=== PATIENT | male | born 1950 | race Caucasian/White ===

== ENCOUNTER 2016-05-07 00:56 | Emergency (ER) | payer MEDICARE, OTHER ==
[~2016-05-07] VITALS: Ht 180.3 cm; Wt 111.0 kg
[~2016-05-07 00:56] MED LIST: CLONIDINE0.1 MG PO; DOXAZOSIN4 MG PO; FINASTERIDE5 MG PO; LISINOPRIL20 MG PO; MAXZIDE-2537.5 MG/TA PO; METFORMIN500 MG PO; PRAVASTATIN20 MG PO; VERAPAMIL180 M2 PO; XARELTO10 MG PO
[2016-05-07] MEDS ORDERED: CLONIDINE0.3 MG PO (01:15)
[2016-05-07] MEDS ORDERED: MAXZIDE-2537.5 MG/TA PO (01:15)
[2016-05-07 01:35] LABS: HEMATOCRIT 42.1 % (39.0-50.0); HEMOGLOBIN 14.4 g/dl (14.0-18.0); IMMATURE GRANULOCYTES 0.3 % (0.0-1.0); MEAN CELL VOLUME 90.9 fL CALC (80.0-100.0); MEAN CORPUSCULAR HGB 31.1 pG CALC (26.0-32.0); MEAN CORPUSCULAR HGB CONC 34.2 g/L CALC (32.0-36.0); NEUT# 8.33 thou/uL (1.82-7.42); RED BLOOD COUNT 4.63 mill/uL (4.70-6.10); RED CELL DISTRI WIDTH 12.7 % (11.5-15.5)
[2016-05-07 01:52] LABS: ALBUMIN 3.7 g/dL (3.2-5.0); ALKALINE PHOSPHATASE 92 u/l (38-126); ANION GAP 15 (6-22 (CALC)); BILIRUBIN, TOTAL 0.5 mg/dL (0.0-1.4); BUN 13 mg/dL (8-23); BUN/CREATININE RATIO 15 (12-20 (CALC)); CALCIUM 8.7 mg/dL (8.4-10.2); CARBON DIOXIDE 30 mmol/l (22-30); CHLORIDE 99 mmol/l (95-108); CREATININE 0.9 mg/dL (0.7-1.3); GFR > 60 ML/MIN (>=60 (CALC)); GFR FOR AFR.AMER. > 60 ML/MIN (>=60 (CALC)); GLUCOSE 119 mg/dL (82-115); POTASSIUM 3.5 mmol/l (3.5-5.1); SGOT/AST 39 u/l (19-48); SGPT/ALT 34 u/l (11-66); SODIUM 141 mmol/l (137-146); TOTAL PROTEIN 7.1 g/dL (6.3-8.2)
[2016-05-07 02:00] LABS: MYOGLOBIN 58 ng/mL (0 - 121)
[2016-05-07 02:33] LABS: URINE BILIRUBIN - DIPSTICK NEGATIVE (NEGATIVE); URINE BLOOD DIPSTICK NEGATIVE (NEGATIVE); URINE CLARITY SLIGHT CLOUDY; URINE COLOR YELLOW; URINE GLUCOSE - DIPSTICK NEGATIVE (NEGATIVE); URINE KETONE NEGATIVE (NEGATIVE); URINE LEUK ESTERASE NEGATIVE (NEGATIVE); URINE NITRITE - DIPSTICK NEGATIVE (Negative); URINE PH 5.5 (4.5-8.0); URINE PROTEIN - DIPSTICK NEGATIVE (NEG-TRACE); URINE UROBILINOGEN - DIPSTICK 0.2 E.U./dL (0.2)
[2016-05-07 02:38] LABS: BARBITURATES NEGATIVE (NEGATIVE); COCAINE NEGATIVE (NEGATIVE); METHADONE NEGATIVE (NEGATIVE); OXCYCODONE NEGATIVE (NEGATIVE); TETRAHYDROCANNABIONOL POSITIVE (NEGATIVE); TRICYLIC ANTIDEPRESSANTS NEGATIVE (NEGATIVE)
[2016-05-07 03:40] VITALS: BP 129/89
== END 2016-05-07 03:45 | disposition short-term general hospital (02) ==
LOC: ED 00:56
PROVIDERS: Emergency Medicine
DX: G81.94 Hemiplegia, unspecified affecting left nondominant side (principal); R47.81 Slurred speech; R53.1 Weakness; I10 Essential (primary) hypertension; R26.2 Difficulty in walking, not elsewhere classified; Z86.73 Personal history of transient ischemic attack (TIA), and cerebral infarction without residual deficits; F17.210 Nicotine dependence, cigarettes, uncomplicated

== ENCOUNTER 2020-07-11 18:29 | Emergency (ER) | payer MEDICARE, MEDICAID ==
[~2020-07-11] VITALS: Ht 180.3 cm; Wt 109.0 kg
[~2020-07-11 18:29] MED LIST changes: +CLONIDINE0.3 MG PO
[2020-07-11 19:42] VITALS: BP 176/90
== END 2020-07-11 19:40 | disposition home or self-care (01) ==
LOC: ED 18:29
DX: L60.8 Other nail disorders (principal); S91.204A Unspecified open wound of right lesser toe(s) with damage to nail, initial encounter; E11.9 Type 2 diabetes mellitus without complications; J44.9 Chronic obstructive pulmonary disease, unspecified; I50.9 Heart failure, unspecified; F17.200 Nicotine dependence, unspecified, uncomplicated; W22.09XA Striking against other stationary object, initial encounter; Y92.009 Unspecified place in unspecified non-institutional (private) residence as the place of occurrence of the external cause

== ENCOUNTER 2020-09-02 12:08 | Inpatient (IN) | payer MEDICARE, MEDICAID ==
[~2020-09-02] VITALS: Ht 180.3 cm; Wt 144.1 kg
--- NOTE | 2020-09-02 12:08 | NUR ---
TO ROOM VIA EMS, MD AT BEDSIDE.
--- NOTE | 2020-09-02 12:32 | NUR ---
BLADDER TRIMMER CALLED WITH ISTAT CREATININE RESULTS OF 1.2. NOTIFIED.
[2020-09-02 12:42] LABS: GFR 60 ML/MIN (>=60 (CALC)); GFR FOR AFR.AMER. > 60 ML/MIN (>=60 (CALC))
[2020-09-02 13:03] LABS: ALKALINE PHOSPHATASE 49 u/l (38-126); BILIRUBIN, TOTAL 0.3 mg/dL (0.0-1.4); BUN 11 mg/dL (8-23); BUN/CREATININE RATIO 20 (12-20 (CALC)); CREATININE 0.6 mg/dL (0.7-1.3); GFR > 60 ML/MIN (>=60 (CALC)); GFR FOR AFR.AMER. > 60 ML/MIN (>=60 (CALC)); LIPASE 55 u/l (23-300); SGOT/AST 25 u/l (19-48); SODIUM 138 mmol/l (137-146)
[2020-09-02 13:10] LABS: ALBUMIN 1.7 g/dL (3.2-5.0); ANION GAP 11 (6-22 (CALC)); CARBON DIOXIDE 17 mmol/l (22-30); CHLORIDE 112 mmol/l (95-108); POTASSIUM 2.3 mmol/l (3.5-5.1); TOTAL PROTEIN 3.7 g/dL (6.3-8.2)
--- NOTE | 2020-09-02 13:20 | NUR ---
Rt CURRENTLY BEDSIDE FOR ABG
[2020-09-02 13:29] LABS: HEMATOCRIT 44.3 % (39.0-50.0); HEMOGLOBIN 14.7 g/dl (14.0-18.0); IMMATURE GRANULOCYTES 0.5 % (0.0-5.0); MEAN CELL VOLUME 95.1 fL CALC (80.0-100.0); MEAN CORPUSCULAR HGB 31.5 pG CALC (26.0-32.0); MEAN CORPUSCULAR HGB CONC 33.2 g/dL CAL (32.0-36.0); NEUT# 27.4 thou/uL (1.82-7.42); RED BLOOD COUNT 4.66 mill/uL (4.70-6.10); RED CELL DISTRI WIDTH 13.5 % (11.5-15.5)
[2020-09-02 13:39] LABS: INTERNATIONAL NORMALIZED RATIO 1.1 RATIO (0.7-1.3); PROTHROMBIN TIME 11.7 SECONDS (9.0-12.5)
[2020-09-02 15:04] LABS: URINE BILIRUBIN - DIPSTICK NEGATIVE (NEGATIVE); URINE BLOOD DIPSTICK NEGATIVE (NEGATIVE); URINE COLOR YELLOW; URINE GLUCOSE - DIPSTICK NEGATIVE (NEGATIVE); URINE KETONE NEGATIVE (NEGATIVE); URINE LEUK ESTERASE NEGATIVE (NEGATIVE); URINE PROTEIN - DIPSTICK NEGATIVE (NEG-TRACE); URINE SPECIFIC GRAVITY <=1.005; URINE UROBILINOGEN - DIPSTICK 0.2 E.U./dL (0.2)
[2020-09-02 15:29] LABS: URINE NITRITE - DIPSTICK NEGATIVE (Negative)
--- NOTE | 2020-09-02 15:55 | NUR ---
unable to scan vancomycin
--- NOTE | 2020-09-02 16:07 | NUR ---
POST CATH PLACED 16 F 550 CLEAR STRAW URINE OUT
[2020-09-02] MEDS ORDERED: METFORMIN500 M2 PO (16:31)
[2020-09-02] MEDS ORDERED: LIPITOR20 M1 PO (16:32)
[2020-09-02] MEDS ORDERED: FINASTERIDE5 MG PO (16:33)
[2020-09-02] MEDS ORDERED: CLONIDINE0.1 MG PO (16:33)
[2020-09-02] MEDS ORDERED: DOXAZOSIN4 MG PO (16:34)
[2020-09-02] MEDS ORDERED: LISINOPRIL20 MG PO (16:34)
[2020-09-02] MEDS ORDERED: GLIPIZIDE10 M3 PO (16:35)
[2020-09-02] MEDS ORDERED: VERAPAMIL180 M5 PO (16:35)
[2020-09-02] MEDS ORDERED: XARELTO10 MG PO (16:36)
[2020-09-02 16:54] LABS: BUN 16 mg/dL (8-23); BUN/CREATININE RATIO 18 (12-20 (CALC)); CREATININE 0.9 mg/dL (0.7-1.3); GFR > 60 ML/MIN (>=60 (CALC)); GFR FOR AFR.AMER. > 60 ML/MIN (>=60 (CALC)); SGOT/AST 43 u/l (19-48); SODIUM 133 mmol/l (137-146)
[2020-09-02 17:00] LABS: ALBUMIN 3.5 g/dL (3.2-5.0); ALKALINE PHOSPHATASE 76 u/l (38-126); ANION GAP 13 (6-22 (CALC)); BILIRUBIN, TOTAL 0.8 mg/dL (0.0-1.4); CARBON DIOXIDE 27 mmol/l (22-30); CHLORIDE 97 mmol/l (95-108); POTASSIUM 3.9 mmol/l (3.5-5.1); TOTAL PROTEIN 6.5 g/dL (6.3-8.2)
--- NOTE | 2020-09-02 17:40 | NUR ---
REPORT CALLED TO [facility]
[2020-09-02 18:00] VITALS: BP 149/74
--- NOTE | 2020-09-02 18:10 | NUR ---
PT ARRIVES TO ICU-8 FROM ER ACCOMPANIED BY GABI CRUMP AND ANITA MORENO. PT IS AWAKE, ALERT, ANSWERS QUESTIONS WHEN ASKED. PT IS LARGE, REQUIRED MUCH ASSIST TO SLIDE TO BED. POST CATHETER IN PLACE. IVs X 2 INFUSE POTASSIUM AND VANCOMYCIN. IVF BEGUN PER ORDER. BS 252, PT PROVIDED 5 UNITS INSULIN. REPORT GIVEN TO JULIAN CRUMP.
[2020-09-02 19:00] VITALS: BP 168/85
--- NOTE | 2020-09-02 19:00 | NUR ---
PATIENT AWAKENS WHEN SPOKEN TO, IS DROWSY, STATES, "I WANT TO SNOOZE." IS ORIENTED TO NAME//PLACE/MONTH. DOES NOT FULLY COOPERATE WITH MEND EXAM, R-SIDE UPPER AND LOWER FALL TO BED. L-ARM PATIENT DOES NOT FOLLOW DIRECTION CORRECTLY, L-LEG-NO DRIFT, BILAT MODERATE HAND MOLDED GOODS EMBOSSING PRESS OPERATOR, NO FACIAL DROOP, SPEECH IS SLURRED, DOES NAME ALL OBJECTS CORRECTLY ON NIH STROKE TEST IMAGES. CANNOT SEE/READ DUE TO HE DOES NOT HAVE HIS GLASSES, DENIES DECREASED SENSATION BILATERALLY. NURSE ASSESSMENT PERFORMED. LOW GRADE TEMP 99.8 DEGREES F REPORTED BY HEDDLE MACHINE OPERATOR. BP 160'S SYSTOLIC, RESP RATE 34/TACHYPNEIC/SHALLOW, 92%-94% NOW ON 3 L/MIN NC. LEGS AND FEET HAVE DRY DIRT/UNKEPT, 1+ PEDAL/LEG EDEMA MORE ON RIGHT, BILAT LEGS RED/SCALY. LAYS ON HIS R-SIDE, IS ABLE TO PULL HIMSELF UP WITH REPETITIVE DIRECTION. CALL LIGHT WITHIN REACH.
--- NOTE | 2020-09-02 19:39 | NUR ---
TYLENOL GIVEN FOR TEMP OF 99.8 DEGREES F. SHEET ONLY ON PATIENT TO PREVENT INCREASING BODY TEMP.
--- NOTE | 2020-09-02 19:52 | NUR ---
CALLED AND SPOKE TO AMBREEN ANDRE, CONSENT GIVEN BY PATIENT. CALLED IN REGARDS TO RECEIVE INFORMATION OF PATIENT'S PAST MEDICAL/SURGICAL HISTORY. PATIENT NOT ABLE TO ANSWER DUE TO FALLS ASLEEP. SON REPORTS PATIENT SMOKES "ABOUT A PACK AND A HALF PER DAY, 40 CARTONS PER MONTH." REPORTS PATIENT FELL TODAY AND PATIENT REPORTED HE FELL SIDEWAYS OUT OF THE CHAIR. SON THAI TRANSPORTS PATIENT AND LIVES WITH HIM. PCP DR HANKINS IN [place]. HAS AN INHALER THAT HE USES AT HOME BUT WAS NOT ABLE TO PROVIDE LIST OF MEDICATIONS.
[2020-09-02 20:00] VITALS: BP 166/77
--- NOTE | 2020-09-02 20:07 | NUR ---
CALLED AND SPOKE TO DR VARMA, SBAR PROVIDED. NOTIFIED O2 SAT 91%-94%, TACHYPNEIC/SHALLOW, RESP RATE 34. HISTORY OF COPD, AND SMOKER. NEW ORDERS SHRADDHA.
--- NOTE | 2020-09-02 20:43 | NUR ---
LASIX 40 MG IV PROVIDED. O2 SAT 95%, RESP RATE 29 AND SHALLOW/TACHYPNEIC. WILL CONTINUE TO MONITOR.
[2020-09-02 21:00] VITALS: BP 146/66
--- NOTE | 2020-09-02 21:09 | NUR ---
RT IN ROOM TO PROVIDE BREATHING TX.
[2020-09-02 22:00] VITALS: BP 140/73
--- NOTE | 2020-09-02 22:27 | NUR ---
PATIENT LAYS ON HIS LEFT SIDE. AWAKENS WITH NOISE. O2 93% ON 2 L.MIN NC. RESP RATE 30/SHALLOW/ WILL CONTINUE TO MONITOR. NO COMPLAINTS OR NEEDS AT THIS TIME.
[2020-09-02 23:00] VITALS: BP 135/69
[2020-09-03] VITALS (15 sets, daily range): BP systolic 92–173; BP diastolic 56–95
--- NOTE | 2020-09-03 00:22 | NUR ---
ANTIBIOTIC INFUSING NOW. PATIENT CONTINUES TO LAY ON HIS LEFT SIDE. NO ACUTE DISTRESS SHOWN. O2 SAT 93%-94%. AWAKENS WHEN SPOKEN TO. NO NEEDS AT THIS TIME. CALL LIGHT WITHIN REACH.
--- NOTE | 2020-09-03 04:30 | NUR ---
PATIENT AWAKENS WITH VERBAL STIMULI, AGREES WITH BED BATHE. WAS WASHED UP, LINENS CHANGED. ASSISTS WITH TURNING AND PULLS HIMSELF UP. O2 SAT 88% WITH EXERTION. HR LOW 100'S WITH EXERTION. WASHED FEET THOROUGHLY SINCE BUILT UP DIRT. LAYS BACK ON HIS LEFT SIDE. TAKES SIPS OF WATER. IV X2 INTACT, REINFORCED. CALL LIGHT WITHIN REACH. DOES HAVE CABLE SPLICER APPRENTICE COUGH
[2020-09-03 04:59] LABS: HEMOGLOBIN 13.4 g/dl (14.0-18.0); MEAN CELL VOLUME 94.9 fL CALC (80.0-100.0); MEAN CORPUSCULAR HGB CONC 32.7 g/dL CAL (32.0-36.0); RED BLOOD COUNT 4.32 mill/uL (4.70-6.10); RED CELL DISTRI WIDTH 13.9 % (11.5-15.5)
[2020-09-03 05:37] LABS: ANION GAP 7 (6-22 (CALC)); BUN 13 mg/dL (8-23); BUN/CREATININE RATIO 17 (12-20 (CALC)); CALCULATED LDLCHOLESTEROL 47 mg/dL (62-129 (CALC)); CARBON DIOXIDE 34 mmol/l (22-30); CHLORIDE 97 mmol/l (95-108); CHOLESTEROL HDL RATIO 2.8 (<4.4 (CALC)); CREATININE 0.7 mg/dL (0.7-1.3); GFR > 60 ML/MIN (>=60 (CALC)); GFR FOR AFR.AMER. > 60 ML/MIN (>=60 (CALC)); HDL CHOLESTEROL 35 mg/dL (>=40); MAGNESIUM 1.7 mg/dL (1.6-2.3); POTASSIUM 3.4 mmol/l (3.5-5.1); SODIUM 135 mmol/l (137-146); TOTAL CHOLESTEROL 98 mg/dl (0-199); TOTAL TRIGLYCERIDES 81 mg/dl (30-149); VLDL CHOLESTROL 16 mg/dl (4-45 (CALC))
--- NOTE | 2020-09-03 06:18 | NUR ---
PATIENT LAYS ON HIS LEFT SIDE. RESTS WITH EYES CLOSED. NO COMPLAINTS OR NEEDS AT THIS TIME. CALL LIGHT WITHIN REACH.
--- NOTE | 2020-09-03 07:16 | NUR ---
PT IS AWAKE, ALERT, ORIENTED X 3. LUNGS CLEAR, DIMINISHED PER GIRTH, 3 LPM NC. ABDOMEN SOFT, DISTENDED, LAST BM YESTERDAY PER SON BUT PT NOT SURE. REDNESS NOTED TO RIGHT FOOT DISTALLY. PT SEEN TO BE IN A FIB, CHRONIC FOR HIM. RIGHT SIDED WEAKNESS FROM PREVIOUS CVA.
--- NOTE | 2020-09-03 07:16 | NUR ---
Patient is screened for PT intervention and would benefit from PT consult
--- NOTE | 2020-09-03 08:35 | NUR ---
PT C CLEAR BREATH SOUNDS. PT WAS RESTING COMFORTABLY IN BEDSIDE CHAIR C C/O SPC. UNDERLINER ADMIN AEROSOLIZED BRONCHODILATOR THERAPY AND PT STARTED TO PRESENT C "GRUNTING". NAD. VSS. BBS= CR/DIM. UNDERLINER TO MONITOR. NO RESPIRATORY DISTRESS PRESENT AT THIS TIME.
--- NOTE | 2020-09-03 09:15 | NUR ---
S: YAMILET BRAVO is a 69 M who presents with weakness. He has a history of Cellulitis and Sepsis. All medications in patient's chart were reviewed. O: VS: BP 173/95mmHg, P 102bpm , RR 18bpm ,T 98.9F W 143kg, HT 71inches, Scr= 0.7mg/dL ,CrCl= 102ml/min A: Blood culture is show no growth. P: Patient is on azithromucin 500mg IV x1, ceftriaxone 1g IV x1, Zosy 3.375g IV X1 Vancomycin ordered for pharmacy to dose. Start Vancomycin 1g IV Q8H. Vancomycin trough is drawn before the 4th dose on 09/03/20 at 1530. Vancomycin goal trough is between 15-20 mcg/ml. Pharmacy will follow and or advise on antibiotics use as needed.
--- NOTE | 2020-09-03 10:46 | NUR ---
PT ASSISTED OOB INTO CHAIR AT BEDSIDE. PT SEEN BY DR HILL, STATES THAT HE DOES LITTLE MORE THAN WATCH TV AT HOME ALL DAY LONG. PT ABLE TO SWALLOW ALL PILLS WITHOUT DIFFICULTY. SON HAS CALLED AND WAS UPDATED ON DAD'S CONDITION.
--- NOTE | 2020-09-03 12:42 | NUR ---
PT BACK IN BED AFTER BEING UP IN CHAIR FOR 2-3 HOURS. NO DISTRESS NOTED. PT STATES THAT HE FEELS STRONGER THAN YESTERDAY.
--- NOTE | 2020-09-03 14:33 | NUR ---
PT C GRUNTING WHEN AUTOMATION OPERATOR ARRIVD TO RROM. PRIOR TO, PT RESTING COMFORTABLY IN BED, ON ISDE, FACING WINDOW. NAD. VSS. AUTOMATION OPERATOR TO MONITOR.
--- NOTE | 2020-09-03 14:44 | NUR ---
Attempted to see patient for swallow evaluation/cognitive-linguistic screen. OT and PT at bedside to assess patient. Will f/u tomorrow.
--- NOTE | 2020-09-03 16:08 | NUR ---
PT SEEN BY PHYSICAL, OCCUPATIONAL, AND SPEECH THERAPY THIS AFTERNOON. PT REMAINS AT REST IN THE BED IN NO DISTRESS. NO EVIDENCE OF PREVIOUS CVA WORSENING, NO NUMBNESS. PT CONTINUES ON 3 LPM NC, SATS IN THE LOW 90s.
--- NOTE | 2020-09-03 18:08 | NUR ---
PT WITH VISIT FROM SON THAI THIS AFTERNOON. PT BACK IN BED, WATCHES TV.
--- NOTE | 2020-09-03 19:32 | NUR ---
PATIENT AWAKENS WHEN SPOKEN TO. FOLLOWS DIRECTIONS. ORIENTED X3. IS ON 3 L/MIN NC, O2 SAT 94%, SHALLOW BREATHING, RESP RATE 22. NURSE ASSESSMENT PERFORMED. AFIB ON TELEMETRY, HR 70'S-90'S. BP WNL, LOW GRADE TEMP AT 99.3 DEGREES F. COMPLAINS OF CONSTIPATION, NOTIFIED I WILL PROVIDE WITH MEDICATION TONIGHT. ABLE TO TAKE A SIP OF WATER. LAYS ON HIS L-SIDE. IV X2 INTACT, NS INFUSING PROPERLY. CALL LIGHT WITHIN REACH.
--- NOTE | 2020-09-03 19:35 | NUR ---
RT HERNANDEZ IN ROOM TO PROVIDE BREATHING TX.
--- NOTE | 2020-09-03 21:32 | NUR ---
INSULIN PROVIDED PER PARAMETERS, MILK OF MAGNESIA PROVIDED FOR COMPLAINTS OF CONSTIPATION. ABLE TO SWALLOW WITHOUT DIFFICULTY. NO ACUTE DISTRESS SHOWN. CALL LIGHT WITHIN REACH.
[2020-09-04] VITALS (14 sets, daily range): BP systolic 91–200; BP diastolic 58–131
--- NOTE | 2020-09-04 00:11 | NUR ---
PATIENT LAYS ON HIS LEFT SIDE, AWAKENS WHEN SPOKEN TO. NO ACUTE DISTRESS SHOWN. ZOSYN INFUSING NOW. CALL LIGHT WITHIN REACH.
--- NOTE | 2020-09-04 03:42 | NUR ---
APTIENT RESTS WITH EYES CLSOED. NO ACUTE DISTRESS SHOWN. CALL LIGHT WITHIN REACH.
[2020-09-04 04:53] LABS: HEMOGLOBIN 13.1 g/dl (14.0-18.0); MEAN CELL VOLUME 96.5 fL CALC (80.0-100.0); MEAN CORPUSCULAR HGB 30.8 pG CALC (26.0-32.0); RED BLOOD COUNT 4.25 mill/uL (4.70-6.10); RED CELL DISTRI WIDTH 13.8 % (11.5-15.5)
[2020-09-04 05:01] LABS: ALBUMIN 2.8 g/dL (3.2-5.0); ALKALINE PHOSPHATASE 64 u/l (38-126); ANION GAP 9 (6-22 (CALC)); BILIRUBIN, TOTAL 0.7 mg/dL (0.0-1.4); BUN 14 mg/dL (8-23); BUN/CREATININE RATIO 20 (12-20 (CALC)); CARBON DIOXIDE 33 mmol/l (22-30); CHLORIDE 96 mmol/l (95-108); CREATININE 0.7 mg/dL (0.7-1.3); GFR > 60 ML/MIN (>=60 (CALC)); GFR FOR AFR.AMER. > 60 ML/MIN (>=60 (CALC)); POTASSIUM 3.9 mmol/l (3.5-5.1); SODIUM 135 mmol/l (137-146); TOTAL PROTEIN 5.6 g/dL (6.3-8.2)
[2020-09-04 05:02] LABS: SGOT/AST 101 u/l (19-48)
--- NOTE | 2020-09-04 05:10 | NUR ---
CALLED AND SPOKE TO Ruben BARRETO APRN REGARDING PATIENT HAS CHANGE IN STATUS, BECAME SOB, RESP RATE 30'S-40'S, BP ELEVATED AT 216/123 MMHG, IV APRESOLINE PROVIDED, HR 120'S. NEW ORDERS GIVEN STAT CXR AND STAT ABG, DITCHING MACHINE OPERATING ENGINEER NOTIFIED AND RT WADNER NOTIFIED.
--- NOTE | 2020-09-04 05:12 | NUR ---
RT HERNANDEZ IN ROOM FOR YOUNG
--- NOTE | 2020-09-04 05:28 | NUR ---
PATIENT ASSISTED WITH SITTING ON RECLINER, O2 AT 5 L/MIN. O2 SAT 93%, HR STILL 100-120'S. RESP RATE 32/SHALLOW. RT WADNER IN ROOM TO ADD HUMIDIFIER TO O2.
--- NOTE | 2020-09-04 06:09 | NUR ---
CALLED EXCHANGE ENGINEER REGARDING CXR WAS ORDERED STAT AND HAVE NOT RECEIVED RESULTS YET, TECH REPORTS SHE WILL CALL TO HAVE IT READ.
--- NOTE | 2020-09-04 06:37 | NUR ---
CALLED AND SPOKE TO Ruben BARRETO APRN TO NOTIFY NO CXR RESULTS BACK YET, NOTIFIED HR LOW 100'S, BP 143/83 MMHG, 95% ON 5 L/MIN NC H. NOTIFIED IT MAY BE DUE TO ANXIETY, OBTAINED ORDER FOR XANAX. SENT TO [facility].
--- NOTE | 2020-09-04 07:33 | NUR ---
PT RESTING IN CHAIR NEXT TO BEDSIDE. WATCHING TELEVISION. PT C SPC. NAD. MIRIAM SITTING WELL AT THIS TIME. SPO2= 93. RELEASE COORDINATOR TO MONITOR.
--- NOTE | 2020-09-04 07:45 | NUR ---
PATIENT RECIEVED FROM NIGHT NURSE KAMINI CRUMP.
--- NOTE | 2020-09-04 08:00 | NUR ---
PATIENT IS A/O X3, DENIES PAIN, FELT DISCOMFORT STATES HE HAD A HEADACHE, TYLENOL WAS GIVEN ALONG WITH OTHER MORNING MEDICATIONS. PERRLA 3MM. NO DENTURES. DRY, INTACT SKIN. AFIB ON TELLE. RHONCHI THROUGHOUT LUNGS, BILAT. HYPOACTIVE BOWEL SOUNDS. DISTENDED ADBOMEN, SOFT NO TENDER. EDEMA IN RLE 2+ AND LLE TRACE. WEAK RIGHT PEDAL PULSE. STRONG ON THE OTHER PULSES. SAFETY MEASURES IN PLACE. CALL LIGHT IN REACH. WILL CONTINUE TO MONITOR.
--- NOTE | 2020-09-04 10:00 | NUR ---
PATIENT IS SITTING UP IN CHAIR, HAD PT WORKING WITH HIM.
--- NOTE | 2020-09-04 11:21 | NUR ---
Physical Therapy Visit Patient identified by full name and date of Physical Therapy Management 1. AROME of the head and neck x 10 repetitions 2. AROME of the Shoulders x 10 repetitions 3. Rounding of the shoulders x 10 repetitions 4. Tiptoes while sitting x 10 repetitions 5. Knee flexin-extension x 10 repetitions 6. Sit to stand Patient was able to peform all exercises but fatigued quickly. Shortness of breath observed throughout physical therapy session. Patient call button left within reach after physical therapy session.
--- NOTE | 2020-09-04 12:00 | NUR ---
PATIENT IS SITTING UP WATCHING TV
--- NOTE | 2020-09-04 12:34 | NUR ---
PT IN CHAIR AT BEDSIDE. NAD. VSS. DIRECTOR OF USER EXPERIENCE TO MONITOR.
--- NOTE | 2020-09-04 13:20 | NUR ---
CALLED DR ORELLANA ABOUT PATIENT'S BP. WAS ORDERED TO GIVE LASIX IV BP WAS 119/88 WHEN GIVING THE MEDICATION. PATIENT THEN REQUESTED TO BE PUT BACK IN BED. PATIENT LAYED IN BED AND RECIEVED A BREATHING TREATMENT. BP HAS LOWERED INTO THE 60'S SYSTOLIC. DR. ORELLANA STATED TO KEEP AN EYE ON IT, IF GETS TO LOW GIVE HIM FLUIDS. SAFETY MEASURES IN PLACE. CALL LIGHT INR EACH. WILL CONTINUE TO MONITOR.
--- NOTE | 2020-09-04 14:00 | NUR ---
PATIENT'S SON CAME BY FOR A VISIT.
--- NOTE | 2020-09-04 16:00 | NUR ---
PATIENT IS SITTING UP IN BED
--- NOTE | 2020-09-04 18:00 | NUR ---
PATIENT IS SITTING UP IN CHAIR EATING HIS DINNER
--- NOTE | 2020-09-04 18:15 | NUR ---
PATIENT HAS BEEN DECREASED TO 4L EARLIER IN THE DAY, SATS 89-93%. ANY MOVEMENT HIS O2 SATS DECREASE TO 84-88%.
--- NOTE | 2020-09-04 20:00 | NUR ---
PATIENT SITTING UP IN THE CHAIR. BACK TO BED WITH MINIMAL ASSIST. ALERT AND ORIENTED. RESP LABORED. O2 ON AT 3 L NC. O2 SAT DROPS BRIEFLY WITH ACTIVITY, PICKED BACK UP QUUCKLY WITH REST, CURRENTLY SATTING IN THE LOW 90'S. BREATH SOUNDS DIMINISHED THROUGHOUT LUNG BRODY. POST DRAINS DARK KRIS URINE WITH SEDIMENT. EDEMA PRESENT TO BLE. IV IN LAC WITH NS INFUSING AT KVO. RODDING MACHINE TENDER SHOWS AFIB. DISCUSSED PLAN OF CARE. DENIES NEEDS AT THIS TIME. CALL LOPEZ IN REACH.
--- NOTE | 2020-09-04 21:25 | NUR ---
ACCU CHECK 323 INSULIN COVERAGE GIVEN PER SS PROTOCOL.
--- NOTE | 2020-09-04 22:00 | NUR ---
RESTING WITH EYES CLOSED. O2 SAT 95% AFIB ON MONITOR.
[2020-09-05] VITALS (13 sets, daily range): BP systolic 130–198; BP diastolic 63–114
--- NOTE | 2020-09-05 00:01 | NUR ---
RESTING WITH EYES CLOSED. AWAKENS EASILY TO NAME. VSS. O2 SAT 93%-95% O2 DECREASED TO 2 L NC. IV ANTIBIOTIC INFUSING AT THIS TIME TO LAC IV SITE. AFIB ON MONITOR.
--- NOTE | 2020-09-05 02:00 | NUR ---
RESTING WITH EYES CLOSED. REP NON-LABORED AT REST. VSS.
--- NOTE | 2020-09-05 04:00 | NUR ---
SLEEPING. NO CHANGES TO REPORT. VSS. AFIB ON MONITOR.
[2020-09-05 05:42] LABS: HEMATOCRIT 42.2 % (39.0-50.0); HEMOGLOBIN 13.4 g/dl (14.0-18.0); MEAN CELL VOLUME 97.5 fL CALC (80.0-100.0); MEAN CORPUSCULAR HGB 30.9 pG CALC (26.0-32.0); MEAN CORPUSCULAR HGB CONC 31.8 g/dL CAL (32.0-36.0); RED BLOOD COUNT 4.33 mill/uL (4.70-6.10); RED CELL DISTRI WIDTH 13.6 % (11.5-15.5)
[2020-09-05 05:54] LABS: ANION GAP 10 (6-22 (CALC)); BUN 18 mg/dL (8-23); BUN/CREATININE RATIO 30 (12-20 (CALC)); CARBON DIOXIDE 32 mmol/l (22-30); CHLORIDE 98 mmol/l (95-108); CREATININE 0.6 mg/dL (0.7-1.3); GFR > 60 ML/MIN (>=60 (CALC)); GFR FOR AFR.AMER. > 60 ML/MIN (>=60 (CALC)); POTASSIUM 4.6 mmol/l (3.5-5.1); SODIUM 135 mmol/l (137-146)
--- NOTE | 2020-09-05 06:07 | NUR ---
NO CHANGES TO REPORT. RESP NON-LABORED AT REST. O2 ON AT 2 L NC. SALINE LOCK FLUSHED AND PATENT IN LAC. AFIB ON MONITOR. SLEPT WELL.
--- NOTE | 2020-09-05 07:57 | NUR ---
PT RESTING COMFORTABLY. NAD. VSS. FITTING SUPERVISOR TO MONITOR.
--- NOTE | 2020-09-05 08:00 | NUR ---
PATIENT IS DROWSY, GRABBLED SPEECH, ALERT TO SELF AND PLACE, FALLS BACK TO SLEEP DURING ASSESSMENT. SHOOK HIS HEAD NO WHEN ASKED IF HE HAD ANY PAIN. PERRLA 3MM. GRUNTING AND MOANING. SOB. SATS 88-89% ON 2L. DIMINSHED AND WHEEZING LUNG SOUNDS. ABDOMEN DISTENDED. EDEMEA IN LOWER RIGHT LEG 2+. REFUSED TO EAT HIS BREAKFAST THIS MORNING. STATED HE "WILL GET UP WHEN I'M READY TO EAT". SAFETY MEASURES IN PLACE. CALL LIGHT IN REACH. WILL CONTINUE TO MONITOR.
--- NOTE | 2020-09-05 10:00 | NUR ---
PATIENT CONTINUES TO GROAN AND STAY IN BED.
--- NOTE | 2020-09-05 10:13 | NUR ---
S: YAMILET BRAVO is a 69 M who presents with cellulitis/sepsis. All medications in patient's chart were reviewed. O: VS: BP 169/101 mmHg, P 71 bpm, RR 18 breaths/min, T 97.2 F W 146.36 kg, HT 71 in, Scr 1 mg/dL, CrCl 144 ml/min Vancomycin trough 09/05@ 1705 = 9 mcg/ml P: Patient is on Zosyn 3.375g IV q6h. Vancomycin ordered for pharmacy to dose. Increase vancomycin to 1250mg IV Q8H. Vancomycin trough is drawn before the 4th dose on 09/06 @ 0730. Vancomycin goal trough is between 15-20 mcg/ml Pharmacy will follow and or advise on antibiotics use as needed.
--- NOTE | 2020-09-05 12:00 | NUR ---
PATIENT TURNED ON HIS TV AND STARTED TO WATCH TV. ALTHOUGH PRIOR HE REFUSED TO EAT HIS LUNCH BECAUSE PATIENT STATED THAT "I DON'T WANT IT".
--- NOTE | 2020-09-05 13:19 | NUR ---
Phyical Therapy Visit Attempted to see patient for physical therapy. Patient was asleep. Tried to wake patient twice but was unsuccesful. No phsical therapy done today.
--- NOTE | 2020-09-05 14:00 | NUR ---
PATIENT IS RESTING IN BED
--- NOTE | 2020-09-05 16:00 | NUR ---
PATIENT IS WITH SON IN THE ROOM.
--- NOTE | 2020-09-05 18:00 | NUR ---
PATIENT IS TALKING TO SON. EATING DINNER. STILL ON LOCK DOWN, SON WAS UNABLE TO LEAVE.
--- NOTE | 2020-09-05 18:38 | NUR ---
SON LEFT. LOCK DOWN LIFTED TO PARTIAL INSTEAD OF FULL LOCK DOWN. PATIENT IS LAID BACK IN BED READY TO GO TO SLEEP.
--- NOTE | 2020-09-05 20:10 | NUR ---
PATIENT RESTING WITH EYES CLOSED. AWAKENS TO NAME. RESP LABORED. O2 ON AT 2 L NC. O2 SAT 88-89% BREATH SOUNDS VERY DIMINISHED THROUGHOUT LUNG BRODY. EDEMA NOTED TO BLE. LAC SALINE LOCK INTACT, FLUSHED AND PATENT. MINIATURE MODEL MAKER SHOWS AFIB. DISCUSSED PLAN OF CARE. DENIES NEEDS AT THIS TIME. CALL LOPEZ IN REACH.
--- NOTE | 2020-09-05 22:00 | NUR ---
RESTIGN WITH EYES CLOSED. RESP NON-LABORD. VSS.
[2020-09-06] VITALS (11 sets, daily range): BP systolic 137–179; BP diastolic 68–107
--- NOTE | 2020-09-06 00:05 | NUR ---
PATIENT AWAKEN TO NAME. VSS. SALINE LOCK IN LAC FLUSHED AND PATENT. IV AB INFUSING WITHOUT INCIDENT. AFIB ON MONITOR.
--- NOTE | 2020-09-06 02:15 | NUR ---
LAC SALINE LOCK FLUSHED AND PATENT POST IVAB INFUSION. VSS.
--- NOTE | 2020-09-06 04:00 | NUR ---
RESTING WITH EYES CLOSED. POST DRAINING DARK KRIS URINE WITH RED SEDIMENT.
--- NOTE | 2020-09-06 04:15 | NUR ---
HYDRALAZINE 10 MG IVP GIVEN ORDERED FOR ELEVATED BP.
--- NOTE | 2020-09-06 05:00 | NUR ---
PATIENT TURNS SELF FROM LEFT SIDE TO RIGHT SIDE. O2 SATS DROPPED INTO THE UPPER 70'S WITH ACTIVITY. PATIENT DOES A LOT OF GRUNTING AND GROANING WHEN AWAKE.
--- NOTE | 2020-09-06 06:15 | NUR ---
RESTING WITH EYES CLOSED. VSS. AFIB ON MONITOR.
--- NOTE | 2020-09-06 07:07 | NUR ---
PATIENT RECIEVED FROM YURIY STEPHENS.
--- NOTE | 2020-09-06 08:29 | NUR ---
PATIENT IS A/O X3, GRABBLE SPEECH. DENIES PAIN AT THIS TIME. PERRLA 3MM BILAT. INCREASED 02 TO 3L DUE TO UNABLE TO CATCH BREATH AFTER SITTING UP IN BED FOR BREAKFAST. LUNGS ARE DIMISHED/ WHEEZING. SOB. O2 SATS 85-88% AT THIS TIME. ABDOMEN IS SOFT AND DISTENDED. ACTIVE BOWEL SOUNDS. EDEMA RLE 1+. PULSES STRONG. SAFETY MEASURES IN PLACE. CALL LIGHT IN REACH. WILL CONTINUE TO MONITOR.
--- NOTE | 2020-09-06 09:13 | NUR ---
PATIENT'S BP WAS HIGH SYS IN 190'S, MORNING BP MEDICATIONS WERE GIVEN, BP IS DECREASEING. BP CURRENTLY READ 173/98. WILL CONTINUE TO MONITOR
--- NOTE | 2020-09-06 10:02 | NUR ---
PT IS A 69 YO MALE WHO PRESENTS WITH SEPSIS SECONDARY TO CELLULITIS. PT RENAL FUNCTION STABLE, SCR 0.6 (1) CRCL 144. PT IS ON ZOSYN 3.375G IV Q6H AND VANCOMYCIN ORDERED PHARMACY TO DOSE. PT IS RECEIVING VANCOMYCIN 1250MG IV Q8H. TROUGH THIS AM WAS 12, CONTINUE AT CURRENT DOSE. WILL RE-CHECK TROUGH 09/07 @ 0730. GOAL TROUGH IS 15-20. PT IS OBESE, HENCE CONTINUING THIS DOSE DUE TO POTENTIAL FOR ACCUMULATION.
--- NOTE | 2020-09-06 12:00 | NUR ---
PATIENT IS SITTING UP IN BED EATING LUNCH, INFORMED HIM HE NEEDS TO TAKE HIS TIME EATING AND DRINKING.
--- NOTE | 2020-09-06 14:37 | NUR ---
SPOKE TO PATIENT'S SON, CODE WAS GIVEN, UPDATE WAS GIVEN REQUESTED.
--- NOTE | 2020-09-06 16:00 | NUR ---
CONTINUES TO SIT UP IN THE CHAIR, STATES HE FEELS BETTER HERE.
--- NOTE | 2020-09-06 18:10 | NUR ---
SITTING UP IN HIS CHAIR, EATING IN CHAIR
--- NOTE | 2020-09-06 19:45 | NUR ---
UP N RECLINER. PATIENT BACK TO BED WITH MINIMAL ASSIST OF 2 PERSON. RESP LABORED, INCREASED NOLEN. O2 ON AT 3L NC. BREATH SOUNDS DIMINISHED WITH FAINT WHEEZES. POST DRAINS KRIS URINE WITH SEDIMENT. SAKINE LOCK INTACT IN LAC. AUGER OPERATOR SHOWS AFIB. DISCUSSED PLAN OF CARE. DENIES NEEDS AT THIS TIME. CALL LOPEZ IN REACH.
--- NOTE | 2020-09-06 21:00 | NUR ---
HS ACCU CHECK 323, COVERED ORDERED PER PROTOCOL.
--- NOTE | 2020-09-06 22:00 | NUR ---
VSS. RESTING IN BED WATCHING TV. NO COMPLANTS VOICED.
[2020-09-07] VITALS (12 sets, daily range): BP systolic 151–195; BP diastolic 80–118
--- NOTE | 2020-09-07 00:15 | NUR ---
IV ANTIBIOTICS INFUSING WITHOUT INCIDENT. SALINE LOCK FLUSHED AND PATENT PRE AND POST INFUSION. VSS. AFIB ON MONITOR.
--- NOTE | 2020-09-07 02:00 | NUR ---
PATIENT RESTING WITH EYES CLOSED. VSS.
--- NOTE | 2020-09-07 04:05 | NUR ---
BP 184/92. HYDRALAZINE 10 MG IVP GIVEN ORDERED FOR ELEVATED BP.
--- NOTE | 2020-09-07 04:50 | NUR ---
BP 167/85 AFTER HYDRALAZINE GIVEN EARLIER.
[2020-09-07 05:54] LABS: HEMATOCRIT 41.7 % (39.0-50.0); HEMOGLOBIN 13.5 g/dl (14.0-18.0); IMMATURE GRANULOCYTES 2.1 % (0.0-5.0); MEAN CELL VOLUME 96.3 fL CALC (80.0-100.0); MEAN CORPUSCULAR HGB 31.2 pG CALC (26.0-32.0); MEAN CORPUSCULAR HGB CONC 32.4 g/dL CAL (32.0-36.0); NEUT# 13.29 thou/uL (1.82-7.42); RED BLOOD COUNT 4.33 mill/uL (4.70-6.10); RED CELL DISTRI WIDTH 13.2 % (11.5-15.5)
--- NOTE | 2020-09-07 06:00 | NUR ---
ASSISTED UP TO RECLINER PER PATIENT REQUEST. PATIENT ABLE TO TRANSFER FROM BED TO CHAIR WITH STANDBY ASSIST. INCREASED NOLEN. BP 186/102, CLONIDINE 0.1 MG PO GIVEN FOR ELEVATED BP. WILL CONTINUE TO MONITOR.
[2020-09-07 06:12] LABS: ALKALINE PHOSPHATASE 70 u/l (38-126); ANION GAP 9 (6-22 (CALC)); BILIRUBIN, TOTAL 0.8 mg/dL (0.0-1.4); BUN 21 mg/dL (8-23); BUN/CREATININE RATIO 34 (12-20 (CALC)); CARBON DIOXIDE 34 mmol/l (22-30); CHLORIDE 98 mmol/l (95-108); CREATININE 0.6 mg/dL (0.7-1.3); GFR > 60 ML/MIN (>=60 (CALC)); GFR FOR AFR.AMER. > 60 ML/MIN (>=60 (CALC)); SGOT/AST 61 u/l (19-48); SODIUM 137 mmol/l (137-146); TOTAL PROTEIN 5.9 g/dL (6.3-8.2)
--- NOTE | 2020-09-07 09:14 | NUR ---
Pt seen at bedside by SENIOR RESIDENT CARE DIRECTOR during breakfast. Pt A&O x4. Respirations appeared labored during speech and during PO intake of mechanical soft solids. Pt presented with elevated Heart rate and respiratory rate during all PO trials. Pt completed multiple trials of mechanical soft solids and 7 trials of single sip thin liquids via straw. Pt's bedside liquids were not thickened prior to SENIOR RESIDENT CARE DIRECTOR entering room. Pt complained of thickened liquids, however he was educated on the importance d/t decreased respiraotry support and SOB during meals. Pt did not presented with overt s/s of aspiration/penetration at bedisde during PO intake, however once the SENIOR RESIDENT CARE DIRECTOR left the room he was observed to cough and clear his throat consistently for about 3 minutes after PO intake. SENIOR RESIDENT CARE DIRECTOR recommends continues mechanical soft solids and nectar thickened liqquids and continued aspiration precautions.
--- NOTE | 2020-09-07 09:24 | NUR ---
PT OOB IN CHAIR, NO DISTRESS NOTED. RIGHT FOOT SEEN REDDENED, BUT DOES NOT APPEAR INFECTED OR HOT TO TOUCH. LUNGS CLEAR BUT DIMINISHED PER GIRTH.
--- NOTE | 2020-09-07 09:44 | NUR ---
S: YAMILET BRAVO is a 69 M who presents with cellulitis. He has a history of Hypertension, Type 2 Diabetes, A-fib, stroke and COPD. All medications in patient's chart were reviewed. O: VS: BP 193/128 mmHg, P 120 bpm , RR 28 bpm,T 98.5 F W 144.14 kg, HT 71 inches , Scr= 0.6 mg/dL ,CrCl= 169.0 ml/min Vancomycin trough 09/07 @ 0707 = 15 mcg/ml P: Patient is on Zosyn 3.375g IV Q6H. Vancomycin ordered for pharmacy to dose. Continue Vancomycin 1250mg IV Q8H. Vancomycin trough is drawn before the 4th dose on 09/08 @ 0730 Vancomycin goal trough is between 15-20 mcg/ml. Pharmacy will follow and or advise on antibiotics use as needed.
--- NOTE | 2020-09-07 12:00 | NUR ---
PT BACK IN THE BED AFTER BEING UP IN THE CHAIR THIS MORNING. PT DOES HAVE AUDIBLE WHEEZING WITH ACTIVITY.
--- NOTE | 2020-09-07 15:47 | NUR ---
SON THAI HAS BEEN IN TO VISIT. PT CONTINUES IN THE BED, WATCHING TV. NO ACUTE DISTRESS NOTED.
--- NOTE | 2020-09-07 16:16 | NUR ---
The patient was seen for repeated sit to stand and standing weight shift. He was attempting to tell me that he had a "paralyzed leg on the right". He was able to shift weight and perform sit to stand with mod assist of 1. His Am Pac score is 11 indicaitng he would do well in ECf to work on endurance and strengthening as well as postural stability in order to gain independence. Our plan is to continue progressing to pre gait and ambulation with least restrictive AD.
--- NOTE | 2020-09-07 19:16 | NUR ---
PATIENT BURNISHING MACHINE OPERATOR LIGHT, REQUESTS TO BE "STRAIGHTENED OUT," WITH ALL TUBING AND TELEMETRY WIRES. LAYS IN MORLEY'S POSITION. NO ACUTE DISTRESS SHOWN. WATHES TV. CALL LIGHT WITHIN REACH.
--- NOTE | 2020-09-07 19:56 | NUR ---
PATIENT MOVED TO RTECLINER, REPORTS HE WILL BE SLEEPING THERE TONIGHT DUE TO BED IS UNCUMFORTABLE. URINALS, CALL LIGHT WITHIN REACH.
--- NOTE | 2020-09-07 21:50 | NUR ---
NEW IV PLACED TO L-HAND DUE TO PATIENT ACCIDENTALLY DISLODGED PRIOR ONE ON RAC. CLEAN GOWN PLACED. SITS IN RECLINER WATCHES TV. CALL LIGHT WITHIN REACH.
--- NOTE | 2020-09-07 22:30 | NUR ---
PATIENT REQUESTS A [employer] ENERGY DRINK THAT WA BROUGHT IN TO HIM. IS STORED IN REFRIGERATOR WITH PATIENT NAME. PATIENT WAS ASKED IF HE WANTED TO DRINK THE ENERGY DRINK TONIGHT SINCE HE HAD COMPLAINED ABOUT NOT GETTING ENOUGH SLEEP THESE DAYS. PATIENT WAS OFFERED A DIET NISHI JORGE LUIS INSTEAD, ACCEPTS.
--- NOTE | 2020-09-07 23:15 | NUR ---
PATIENT DECIDES HE WANTS TO LAY BACK IN BED, TRANSFERS TO BED. REPOSITIONS HIMSELF. CALL LIGHT WITHIN REACH,
[2020-09-08] VITALS (9 sets, daily range): BP systolic 128–193; BP diastolic 76–113
--- NOTE | 2020-09-08 03:58 | NUR ---
PATIENT SITS ON SIDE OF BED. ASKS WHAT HE IS SUPPOSED TO BE DOING RIGHT NOW, I REORIENTED AND REDIRECTED HIM. PROVIDED WARM BLANKET FOR C/O OF FFELING COLD.
--- NOTE | 2020-09-08 04:12 | NUR ---
PO MEDICATION GIVEN FOR ELEVATED BP.
--- NOTE | 2020-09-08 05:33 | NUR ---
IV APRESOLINE GIVEN FOR ELEVATED BP AFTER GIVING PO BP MEDICATION. PATIENT ASSISTED TO LAY IN MORLEY'S POSITION IN BED. COVERED WITH BLANKETS. CALL LIGHT WITHIN REACH. SPO2 94% ON 1 L/MIN NC.
[2020-09-08 07:42] LABS: HEMATOCRIT 44.9 % (39.0-50.0); HEMOGLOBIN 14.4 g/dl (14.0-18.0); MEAN CELL VOLUME 95.3 fL CALC (80.0-100.0); MEAN CORPUSCULAR HGB 30.6 pG CALC (26.0-32.0); MEAN CORPUSCULAR HGB CONC 32.1 g/dL CAL (32.0-36.0); RED BLOOD COUNT 4.71 mill/uL (4.70-6.10); RED CELL DISTRI WIDTH 13.1 % (11.5-15.5)
--- NOTE | 2020-09-08 08:00 | NUR ---
PT AWAKE, ALERT, ORIENTED X 3. LUNGS CLEAR BUT DIMINISHED PER GIRTH. OXYGEN WEANED OFF, PT TOLERATING WELL. PT WAS AFIB RVR THIS MORNING, DR MEDINA AWARE, MED ORDERED AND GIVEN WITH GOOD RESPONSE, HR 87 NOW. PT HOPES TO BE DISCHARGED TO REHAB TODAY.
[2020-09-08 08:01] LABS: ANION GAP 13 (6-22 (CALC)); BUN 20 mg/dL (8-23); BUN/CREATININE RATIO 32 (12-20 (CALC)); CARBON DIOXIDE 32 mmol/l (22-30); CHLORIDE 96 mmol/l (95-108); CREATININE 0.6 mg/dL (0.7-1.3); GFR > 60 ML/MIN (>=60 (CALC)); GFR FOR AFR.AMER. > 60 ML/MIN (>=60 (CALC)); POTASSIUM 3.5 mmol/l (3.5-5.1); SODIUM 137 mmol/l (137-146)
[2020-09-08] MEDS ORDERED: LISINOPRIL20 M1 PO (11:57)
[2020-09-08] MEDS ORDERED: MEDDOSEPAK PO (11:58)
--- NOTE | 2020-09-08 12:57 | NUR ---
Perez was received upright in a chair with his lunch tray. He was on room air. Patient independently consumed PO trials of thin liquids and soft solids. Pt presented with increased mastication time, piecemeal deglutition, and increased work of breathihng with soft solids. Pt tolerated thin liquids and soft solids without overt s/s of penetration/aspiration. Pt noted to have desaturation episodes when eating soft solids. He was instructed to eat slowly and take breaks in between bites to improve oxygen saturation and respiratory rate. Pt educated on diet recommendations for mechanical soft solids and thin liquids. Pt reported he will be discharged to rehab today. Discussed with RN and MD. Written by [employer] student: Marivel Sher. Co-signed by: Capri Snyder M.S., [facility]
--- NOTE | 2020-09-08 16:51 | NUR ---
PT HAS BEEN DISCHARGED TO [facility]. [facility] PERSONNEL ARRIVED WITH WHEELCHAIR, PT AMBULATED TO IT WITH ASSIST. PT LEAVES IN STABLE CONDITION. MONITORS AND IV REMOVED PRIOR TO DEPARTURE.
--- NOTE | 2020-09-09 07:25 | NUR ---
09/08/20 Patient is seen for transfer training and ambulation. Despite complaining he could not ambulate on the previous day, the patient performed sit to stand with mod assist of 1 and ambulated 15 feet in room on a level surface with his FWW. He had O2 in place and vitals were stable during the treatment. His Am Pac remains unchanged and he continues to be a good candidate for ECF to maximize his independence and reduce his fall risk as well as work on energy conservation.
== END 2020-09-08 16:30 | DRG 871 ==
LOC: ED 12:08 → ED-I 12:30 → ED 16:16 → ICU 16:17
PROVIDERS: Family Medicine; Hospitalist; Internal Medicine; Nurse Practitioner; ADMIT Internal Medicine; ATTEND Internal Medicine
DX: A41.9 Sepsis, unspecified organism (principal); J96.01 Acute respiratory failure with hypoxia; L03.115 Cellulitis of right lower limb; I69.351 Hemiplegia and hemiparesis following cerebral infarction affecting right dominant side; Z68.41 Body mass index [BMI] 40.0-44.9, adult; E46 Unspecified protein-calorie malnutrition; E87.2 Acidosis; J44.1 Chronic obstructive pulmonary disease with (acute) exacerbation; E66.2 Morbid (severe) obesity with alveolar hypoventilation; E83.51 Hypocalcemia; E87.6 Hypokalemia; E83.42 Hypomagnesemia; I10 Essential (primary) hypertension; E11.9 Type 2 diabetes mellitus without complications; I48.91 Unspecified atrial fibrillation; R31.9 Hematuria, unspecified; F17.200 Nicotine dependence, unspecified, uncomplicated; N40.0 Benign prostatic hyperplasia without lower urinary tract symptoms; G47.30 Sleep apnea, unspecified; Z79.4 Long term (current) use of insulin; Z96.0 Presence of urogenital implants; Z79.01 Long term (current) use of anticoagulants; Z20.822 Contact with and (suspected) exposure to COVID-19
CPT/HCPCS: J3370; J3475; Q9967

== ENCOUNTER 2020-10-02 11:56 | Emergency (ER) | payer MEDICARE, MEDICAID ==
[~2020-10-02 11:56] MED LIST changes: +GLIPIZIDE10 M3 PO; +LIPITOR20 M1 PO; +LISINOPRIL20 M1 PO; +MEDDOSEPAK PO; +METFORMIN500 M2 PO; +VERAPAMIL180 M5 PO
[2020-10-02 12:37] LABS: HEMATOCRIT 42.6 % (39.0-50.0); HEMOGLOBIN 13.6 g/dl (14.0-18.0); IMMATURE GRANULOCYTES 1.6 % (0.0-5.0); MEAN CELL VOLUME 98.6 fL CALC (80.0-100.0); MEAN CORPUSCULAR HGB 31.5 pG CALC (26.0-32.0); MEAN CORPUSCULAR HGB CONC 31.9 g/dL CAL (32.0-36.0); RED BLOOD COUNT 4.32 mill/uL (4.70-6.10); RED CELL DISTRI WIDTH 14.8 % (11.5-15.5)
[2020-10-02 12:53] LABS: ALBUMIN 3.5 g/dL (3.2-5.0); ALKALINE PHOSPHATASE 106 u/l (38-126); ANION GAP 11 (6-22 (CALC)); BUN 19 mg/dL (8-23); BUN/CREATININE RATIO 25 (12-20 (CALC)); CARBON DIOXIDE 34 mmol/l (22-30); CHLORIDE 93 mmol/l (95-108); CREATININE 0.8 mg/dL (0.7-1.3); GFR > 60 ML/MIN (>=60 (CALC)); GFR FOR AFR.AMER. > 60 ML/MIN (>=60 (CALC)); SGOT/AST 34 u/l (19-48); SODIUM 133 mmol/l (137-146); TOTAL PROTEIN 6.8 g/dL (6.3-8.2)
[2020-10-02 12:55] LABS: BILIRUBIN, TOTAL 0.2 mg/dL (0.0-1.4)
[2020-10-02 13:04] LABS: MYOGLOBIN 26 ng/mL (0 - 121)
[2020-10-02] MEDS ORDERED: ZITHROMAX250 MG PO (14:30)
[2020-10-02 14:48] VITALS: BP 118/63
== END 2020-10-02 14:52 | disposition home or self-care (01) ==
LOC: ED 11:56
PROVIDERS: Emergency Medicine
DX: J44.1 Chronic obstructive pulmonary disease with (acute) exacerbation (principal); E11.9 Type 2 diabetes mellitus without complications; I10 Essential (primary) hypertension; Z79.84 Long term (current) use of oral hypoglycemic drugs; F17.200 Nicotine dependence, unspecified, uncomplicated; Z86.73 Personal history of transient ischemic attack (TIA), and cerebral infarction without residual deficits; Z20.822 Contact with and (suspected) exposure to COVID-19; E11.621 Type 2 diabetes mellitus with foot ulcer; E11.622 Type 2 diabetes mellitus with other skin ulcer; E66.01 Morbid (severe) obesity due to excess calories; I73.9 Peripheral vascular disease, unspecified; J44.9 Chronic obstructive pulmonary disease, unspecified
CPT/HCPCS: A6209; A6210

== ENCOUNTER 2021-01-23 15:40 | Inpatient (IN) | payer MEDICARE, MEDICAID ==
[~2021-01-23] VITALS: Ht 180.3 cm; Wt 131.0 kg
[2021-01-23] VITALS (16 sets, daily range): BP systolic 81–136; BP diastolic 37–88
[~2021-01-23 15:40] MED LIST changes: +ZITHROMAX250 MG PO
--- NOTE | 2021-01-23 15:40 | NUR ---
PT TO ROOM VIA EMS
[2021-01-23] MEDS ORDERED: LISINOPRIL20 MG PO (15:57)
[2021-01-23 16:21] LABS: URINE BLOOD DIPSTICK NEGATIVE (NEGATIVE); URINE COLOR YELLOW; URINE GLUCOSE - DIPSTICK NEGATIVE (NEGATIVE); URINE KETONE NEGATIVE (NEGATIVE); URINE LEUK ESTERASE NEGATIVE (NEGATIVE); URINE PH 5.5 (4.5-8.0); URINE PROTEIN - DIPSTICK NEGATIVE (NEG-TRACE); URINE SPECIFIC GRAVITY 1.025
[2021-01-23 16:22] LABS: URINE NITRITE - DIPSTICK NEGATIVE (Negative)
[2021-01-23 16:22] LABS: HEMATOCRIT 38.2 % (39.0-50.0); IMMATURE GRANULOCYTES 0.6 % (0.0-5.0); MEAN CELL VOLUME 97.2 fL CALC (80.0-100.0); MEAN CORPUSCULAR HGB 29.5 pG CALC (26.0-32.0); MEAN CORPUSCULAR HGB CONC 30.4 g/dL CAL (32.0-36.0); NEUT# 11.83 thou/uL (1.82-7.42); RED BLOOD COUNT 3.93 mill/uL (4.70-6.10); RED CELL DISTRI WIDTH 14.4 % (11.5-15.5)
[2021-01-23 16:23] LABS: URINE BILIRUBIN - DIPSTICK NEGATIVE (NEGATIVE)
[2021-01-23 16:27] LABS: HEMOGLOBIN 11.6 g/dl (14.0-18.0)
[2021-01-23 16:41] LABS: ACT PARTIAL THROMBO TIME 37.4 SECONDS (20.0-32.5); INTERNATIONAL NORMALIZED RATIO 1.4 RATIO (0.7-1.3); PROTHROMBIN TIME 14.4 SECONDS (9.0-12.5)
[2021-01-23 16:43] LABS: ALBUMIN 3.4 g/dL (3.2-5.0); ALKALINE PHOSPHATASE 89 u/l (38-126); ANION GAP 10 (6-22 (CALC)); BUN 24 mg/dL (8-23); BUN/CREATININE RATIO 19 (12-20 (CALC)); CARBON DIOXIDE 36 mmol/l (22-30); CHLORIDE 95 mmol/l (95-108); CREATININE 1.2 mg/dL (0.7-1.3); ETHYL ALCOHOL 0 mg/dl (0-30); GFR 60 ML/MIN (>=60 (CALC)); GFR FOR AFR.AMER. > 60 ML/MIN (>=60 (CALC)); LIPASE 56 u/l (23-300); MAGNESIUM 1.8 mg/dL (1.6-2.3); POTASSIUM 3.7 mmol/l (3.5-5.1); SGOT/AST 43 u/l (19-48); SODIUM 137 mmol/l (137-146); TOTAL PROTEIN 7.4 g/dL (6.3-8.2)
[2021-01-23 16:44] LABS: BILIRUBIN, TOTAL 0.4 mg/dL (0.0-1.4)
--- NOTE | 2021-01-23 17:10 | NUR ---
FAMILY AT BEDSIDE; DR MARKS TO DISCUSS POC AND PLAN TO ADMIT
--- NOTE | 2021-01-23 17:56 | NUR ---
REPORT CALLED TO ALISIA DALAL
--- NOTE | 2021-01-23 18:21 | NUR ---
transported pt on bipap to icu 8. no adverse events. pt c nad. vss. upon leaving unit.
--- NOTE | 2021-01-23 18:25 | NUR ---
PT ARRIVED TO THE FLOOR VIA ONE PERSON ASSISTANCE FROM THE ER, AND RT. PT IS LETHARGIC BUT AROUSABLE TO PAINFUL STIMULI. CONFUSED AND ANSWERS INAPPROPRIATE. BECOMES LETHARGIC AGAIN. SUCTION SET-UP AT BS, BIPAP IN PLACE
--- NOTE | 2021-01-23 18:36 | NUR ---
MD NOTIFIED OF PT'S ARRIVAL TO THE FLOOR AND BP OF 84/50 MAP OF 60. WILL AWAIT FURTHER ORDERS TO POC.
--- NOTE | 2021-01-23 19:00 | NUR ---
eyes closed. does not arouse. bipap conts. phototypesetting equipment monitor shows a fib hr 67. estrella cath in place. urine stephanie colored. iv bolus began as ordered. history obtained per er record & old chart. fall precautions cont.
--- NOTE | 2021-01-23 19:10 | NUR ---
lab here. blood drawn.
--- NOTE | 2021-01-23 19:15 | NUR ---
rt notified of need for stat abg.
--- NOTE | 2021-01-23 19:43 | NUR ---
notes since 7pm should be this policy writer sales.
--- NOTE | 2021-01-23 20:00 | NUR ---
[id number] marie. order rec'd to intubate. dr marie said he would call er doctor & notify him of need to intubate. dr marie requested family to be notified and to receive permission to intubate. sudheer (son) called. updated on pts condition. sudheer wants to call sister. instructed sudheer to call sister hilaria & return call to this contract technical writer as pt is in need of intubation. within a few minutes sudheer called back & permission was given to intubate. dr coy here. pt was medicated then intubated. xray was called, informed of need for pcxr & pcxr was obtained. #16 og inserted & attached to lis.
--- NOTE | 2021-01-23 21:10 | NUR ---
sudheer (son) here in er lobby. permission rec'd from playground supervisor he could vs pt. assisted to icu per information systems security specialist. updated on pts condition. son stayed for approx 5 minutes then was assisted back to er lobby per information systems security specialist.
--- NOTE | 2021-01-23 21:30 | NUR ---
sx freq. thick yellow sputum obtained. spec sent to lab.
[2021-01-24] VITALS (49 sets, daily range): BP systolic 82–157; BP diastolic 39–86
--- NOTE | 2021-01-24 | NUR ---
vent cont assisted by pt. cardiac rehab nurse shows a fib pvcs hr 76.
--- NOTE | 2021-01-24 02:00 | NUR ---
iron siddiqi assisted by pt. chalino carlos
--- NOTE | 2021-01-24 04:15 | NUR ---
lab here. blood drawn.
--- NOTE | 2021-01-24 04:40 | NUR ---
rt here. abgs drawn. xray here. pcxr obtained. bath & bed change x2 assists.
[2021-01-24 04:56] LABS: HEMATOCRIT 39.2 % (39.0-50.0); MEAN CELL VOLUME 96.1 fL CALC (80.0-100.0); MEAN CORPUSCULAR HGB 29.4 pG CALC (26.0-32.0); MEAN CORPUSCULAR HGB CONC 30.6 g/dL CAL (32.0-36.0); RED BLOOD COUNT 4.08 mill/uL (4.70-6.10); RED CELL DISTRI WIDTH 14.5 % (11.5-15.5)
[2021-01-24 05:15] LABS: BUN 27 mg/dL (8-23); BUN/CREATININE RATIO 19 (12-20 (CALC)); CHLORIDE 100 mmol/l (95-108); CREATININE 1.4 mg/dL (0.7-1.3); GFR 50 ML/MIN (>=60 (CALC)); GFR FOR AFR.AMER. > 60 ML/MIN (>=60 (CALC)); MAGNESIUM 1.8 mg/dL (1.6-2.3); SODIUM 138 mmol/l (137-146)
[2021-01-24 05:16] LABS: ANION GAP 15 (6-22 (CALC)); CARBON DIOXIDE 28 mmol/l (22-30); POTASSIUM 4.8 mmol/l (3.5-5.1)
--- NOTE | 2021-01-24 06:00 | NUR ---
vent cont assisted by pt. ivf infusing well.
--- NOTE | 2021-01-24 07:00 | NUR ---
pt intubated and lightly sedated; no apparent distress noted; assessment completed at this time; pt able to open eyes very briefly when name is called; does not follow commands at this time; no s/sx of pain/ grimaces noted; no n/v; resp even and unlabored; lungs clear/ diminished; skin color wnl; vent intact and maintained with settings of AC mode, rate 25, 450 TV, 50% FiO2, peep 5.0; 8 ETT secured at the 26cm line; hr irr; strong pulses; no edema noted; afib on the monitor; abd distended/obese; bs present; no bm noted per race and sports book writer; og intact to suction; esrtella to gravity draining well; #18 patent to lac with ivf, propofol gtt at 10mcg/kg/min, levophed gtt at 8mcg/min; #20 saline locked to rfa; no redness or edema noted at sites; bilat scds intact; restraints released and reapplied for nursing care; repositioned; will continue to monitor
--- NOTE | 2021-01-24 08:00 | NUR ---
intubated and lightly sedated; no distress noted; afib on monitor; will continue to monitor
--- NOTE | 2021-01-24 09:15 | NUR ---
Dr Simon present at bedside to assess pt and discuss plan of care with staff; pt fully awake; does not squeeze staff hands or follow commands; propofol to be titrated for higher level of sedation;
--- NOTE | 2021-01-24 09:33 | NUR ---
son sudheer phoned and requested to come into visit patient. explained that at this time he would not be allowed to visit and would need to contact administration tomorrow.
--- NOTE | 2021-01-24 09:52 | NUR ---
tevin called this junior underwriter; passcode verified; update provided
--- NOTE | 2021-01-24 10:00 | NUR ---
intubated and sedated; iv patent; no redness or edema noted at site; estrella to gravity; afib on monitor; repositioned; oral care; will continue to monitor
--- NOTE | 2021-01-24 12:00 | NUR ---
vented and sedated; repositioned to left side; oral care; estrella to gravity; iv intact and patent; call light within reach; will continue to monitor
--- NOTE | 2021-01-24 12:18 | NUR ---
S: YAMILET BRAVO is a 70 M who presents with COPD exacerbation with acute hypoxia and hypercapnic failure d/t peumonia. 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 +ETOH, CELLULITIS, BPH, DIVERTICULOSIS, A FIB, MARIJUANA USE. All medications in patient's chart were reviewed. O: VS: BP 128/60mmHg , P 78, RR 20, T 97.3 W 137kg, HT 71in, Scr= 1.4, CrCl= 69ml/min (based on adj BW of 100kg) A: Blood culture is pending. Sputum culture shows no growth after 24 hours. P: Patient was previously on azithromycin 500mg IV q24h. Patient being started on Zosyn 3.375g IV q6h and Vancomycin. Vancomycin ordered for pharmacy to dose. Start Vancomycin 1.25g IV Q12H @ 1030,2230. Vancomycin trough to be drawn before the 4th dose on 01/25/21 @ 2200. Vancomycin goal trough is between 15-20 mcg/ml. Pharmacy will follow and or advise on antibiotics use as needed.
--- NOTE | 2021-01-24 14:02 | NUR ---
vented and sedated; repositioned supine; afib on monitor; will continue to monitor
--- NOTE | 2021-01-24 16:00 | NUR ---
intubated and sedated; no apparent distress noted; [facility] x5 staff; bilat scds placed; repositioned supine; oral care; pt ETT suctioned for lg thick blood tinged yellow secretions; orally suctioned for clear secretions; afib on monitor; estrella to gravity; restraints released and reapplied for nursing care; will continue to monitor
--- NOTE | 2021-01-24 18:00 | NUR ---
vented and sedated; no apparent distress noted; iv intact and patent; propofol gtt at 30mcg/kg/min; no redness or edema noted at sites; estrella to gravity; air mattress; repositioned;
--- NOTE | 2021-01-24 19:30 | NUR ---
vent cont assisted by pt. cardiac rehab nurse shows a fib pvcs hr 76. og cont to lis. ivf cont to lac. estrella cath in place. urine cloudy yellow. bilat scds cont. turned & repositioned. fall precautions cont. pt is VERY obese. requires total assist for all needs.
--- NOTE | 2021-01-24 22:00 | NUR ---
vent cont assisted by pt. ivf infusing well.
[2021-01-25] VITALS (17 sets, daily range): BP systolic 93–199; BP diastolic 47–93
--- NOTE | 2021-01-25 00:01 | NUR ---
eyes closed. no apparent distress. registered nurse cardiac shows a fib hr 68.
--- NOTE | 2021-01-25 02:00 | NUR ---
vent cont assisted by pt. estrella draining well.
--- NOTE | 2021-01-25 04:30 | NUR ---
lab here. blood drawn. bath & linen change x2 assists. sx blood tinged sputum sx from ett.
--- NOTE | 2021-01-25 05:30 | NUR ---
xray here. pcxr obtained.
[2021-01-25 05:43] LABS: HEMATOCRIT 37.4 % (39.0-50.0); MEAN CELL VOLUME 94.4 fL CALC (80.0-100.0); MEAN CORPUSCULAR HGB 30.3 pG CALC (26.0-32.0); MEAN CORPUSCULAR HGB CONC 32.1 g/dL CAL (32.0-36.0); RED BLOOD COUNT 3.96 mill/uL (4.70-6.10); RED CELL DISTRI WIDTH 14.3 % (11.5-15.5)
[2021-01-25 06:14] LABS: ANION GAP 12 (6-22 (CALC)); BUN 21 mg/dL (8-23); BUN/CREATININE RATIO 24 (12-20 (CALC)); CARBON DIOXIDE 28 mmol/l (22-30); CHLORIDE 103 mmol/l (95-108); CREATININE 0.9 mg/dL (0.7-1.3); GFR > 60 ML/MIN (>=60 (CALC)); GFR FOR AFR.AMER. > 60 ML/MIN (>=60 (CALC)); POTASSIUM 5.1 mmol/l (3.5-5.1); SODIUM 138 mmol/l (137-146)
--- NOTE | 2021-01-25 07:00 | NUR ---
ASSUMED CARE OF PT FROM MARIANNE HARPER LPN. PT SEDATED AND INTUBATED, GTTS INFUSING PER EMAR, NO S/S OF DISTRESS NOTED.
--- NOTE | 2021-01-25 09:20 | NUR ---
ROUNDING ON PT AT BEDSIDE
--- NOTE | 2021-01-25 09:38 | NUR ---
preliminary blood cx shows gram positive cocci in 3/4 vials. reported to frank. pt is on vanco. will f/u with final
--- NOTE | 2021-01-25 10:47 | NUR ---
UPDATED SON VIA TELEPHONE
--- NOTE | 2021-01-25 11:27 | NUR ---
YAMILET BRAVO is a 70 year old Male. Admitted for acute hypoxic failre with hypercapnia secondary to COPD exacerbation from pneumonia he is being treated for pneumonia with vancomycin 1250 mg IV Q12H. sputum culture show many WBC and blood culture show no growth. Ht: 71 in, Wt: 141 kg, DW: 102 Kg, SCr: 0.9 mg/dl, CrCl (calc) = 99 ml/min WBC: 17.3 thou.ul, HR: 98 beats/min, BP: 162/79 mmHg, RR 20 breaths/min,Sa02: 97 % Goal trough level is 15-20 mg/L. 1. Start vancomycin 1250 mg IV q12h. 2. Check trough 30 minutes before 4th dose on 01/25/21 at 2200. 3. Monitor BMP daily while on vancomycin 1250 mg IV Q12H. Pharmacy will continue to follow.
--- NOTE | 2021-01-25 14:40 | NUR ---
LARGE SPUTUM SAMPLE COLLECTED AND SENT TO LAB.
--- NOTE | 2021-01-25 17:41 | NUR ---
UPDATED PT SON VIA PHONE
--- NOTE | 2021-01-25 19:00 | NUR ---
BEDSIDE REPORT RECEIVED FROM Noe PARKER RN. PT SEDATED, INTUBATED. HEMODYNAMICS STABLE.
--- NOTE | 2021-01-25 21:53 | NUR ---
Merry KLINE SUPERVISOR NEWSPAPER DELIVERIES AT BEDSIDE COLLECTING VANCO TROUGH.
--- NOTE | 2021-01-25 23:53 | NUR ---
POINT OF CARE GLUCOSE 252mg/dl.
[2021-01-26] VITALS (23 sets, daily range): BP systolic 124–193; BP diastolic 69–111
--- NOTE | 2021-01-26 01:18 | NUR ---
PROPOFOL TUBING CHANGED.
--- NOTE | 2021-01-26 04:52 | NUR ---
Merry KLINE HEAD KNITTING MACHINE FIXER AT BEDSIDE TO COLLECT LABS.
--- NOTE | 2021-01-26 05:12 | NUR ---
POINT OF CARE GLUCOSE 297mg/dl.
--- NOTE | 2021-01-26 05:12 | NUR ---
Diane VALENZUELA [facility] AT BEDSIDE FOR PCXR.
[2021-01-26 05:24] LABS: HEMATOCRIT 35.1 % (39.0-50.0); HEMOGLOBIN 11.3 g/dl (14.0-18.0); MEAN CELL VOLUME 94.1 fL CALC (80.0-100.0); MEAN CORPUSCULAR HGB 30.3 pG CALC (26.0-32.0); MEAN CORPUSCULAR HGB CONC 32.2 g/dL CAL (32.0-36.0); RED BLOOD COUNT 3.73 mill/uL (4.70-6.10); RED CELL DISTRI WIDTH 14.1 % (11.5-15.5)
--- NOTE | 2021-01-26 05:31 | NUR ---
Paz HERNANDEZ PLATE MAKER AT BEDSIDE COLLECTING ABG.
[2021-01-26 05:40] LABS: ANION GAP 9 (6-22 (CALC)); BUN 23 mg/dL (8-23); BUN/CREATININE RATIO 24 (12-20 (CALC)); CHLORIDE 101 mmol/l (95-108); GFR > 60 ML/MIN (>=60 (CALC)); GFR FOR AFR.AMER. > 60 ML/MIN (>=60 (CALC)); MAGNESIUM 1.9 mg/dL (1.6-2.3); POTASSIUM 4.3 mmol/l (3.5-5.1); SODIUM 140 mmol/l (137-146)
[2021-01-26 05:41] LABS: CARBON DIOXIDE 34 mmol/l (22-30)
--- NOTE | 2021-01-26 07:00 | NUR ---
ASSUMED CARE OF PT FROM ALISIA GERARDO. PT INTUBATED AND SEDATED, NO S/S OF DISTRESS NOTED.
--- NOTE | 2021-01-26 07:07 | NUR ---
updated son sudheer via phone
--- NOTE | 2021-01-26 10:15 | NUR ---
ROUNDING AT BEDSIDE
--- NOTE | 2021-01-26 12:01 | NUR ---
YAMILET BRAVO is a 70 year old Male. Admitted for acute respiratory failure with hypoxia and hypercapnia, COPD exacerbation, vomiting and diarrhea, and dehydration. He is being treated for acute respiratory failure with hypoxia and hypercapnia, COPD exarcerbation, vomiting and diarrhea, and dehydration. with vancomycin 1250 mg IV q12h. Sputum culture is pending. Ht: 71 in, Wt: 141 kg, DW: 141 Kg, SCr: 1 mg/dL, CrCl (calc) = 99 ml/min WBC: 14.6 thou/uL, Tmax: 98.3 F. Tcurrent: 97.0 F HR: 77 beats/min, BP: 178/92 mmHg, RR 19 breaths/min, Sa02: 97 % Trough= 12 mg/L AP is not therapeutic at the current dose. Goal level is 15-20 mg/L. 1. Continue vancomycin 1250 mg IV q12h. 2. Check trough 30 minutes before 4th dose on 01/27/21 at 0900. 3. Monitor BMP daily while on vancomycin. Pharmacy will continue to follow.
--- NOTE | 2021-01-26 14:57 | NUR ---
UPDATED SON VIA PHONE
--- NOTE | 2021-01-26 19:00 | NUR ---
REPORT RECEIVED AT [facility] BEDSIDE FROM Noe PARKER RN. CARE OF PT ASSUMED AT THIS TIME.
[2021-01-27] VITALS (20 sets, daily range): BP systolic 123–184; BP diastolic 74–101
--- NOTE | 2021-01-27 01:48 | NUR ---
LEVOPHED AND EPINEPHRINE GTT INCREMENTALLY TITRATED THROUGHOUT SHIFT. LEVO AND EPI GTT D/C'D AT THIS TIME. PT'S NIBP TOLERATES WELL.
--- NOTE | 2021-01-27 04:57 | NUR ---
YOUNG COLLECTED BY Paz HERNANDEZ RRT.
--- NOTE | 2021-01-27 05:35 | NUR ---
Diane VALENZUELA RT AT BEDSIDE PERFORMING PCXR.
[2021-01-27 06:10] LABS: HEMOGLOBIN 12.2 g/dl (14.0-18.0); MEAN CELL VOLUME 92.9 fL CALC (80.0-100.0); MEAN CORPUSCULAR HGB 29.8 pG CALC (26.0-32.0); MEAN CORPUSCULAR HGB CONC 32.1 g/dL CAL (32.0-36.0); RED BLOOD COUNT 4.09 mill/uL (4.70-6.10)
[2021-01-27 06:24] LABS: ANION GAP 13 (6-22 (CALC)); BUN 27 mg/dL (8-23); BUN/CREATININE RATIO 29 (12-20 (CALC)); CARBON DIOXIDE 35 mmol/l (22-30); CHLORIDE 95 mmol/l (95-108); GFR > 60 ML/MIN (>=60 (CALC)); GFR FOR AFR.AMER. > 60 ML/MIN (>=60 (CALC)); MAGNESIUM 1.6 mg/dL (1.6-2.3); SODIUM 139 mmol/l (137-146)
--- NOTE | 2021-01-27 07:00 | NUR ---
ASSUMED CARE FROM ALISIA GERARDO. PT INTUBATED AND SEDATED, NO S/S OF DISTRESS NOTED
--- NOTE | 2021-01-27 07:47 | NUR ---
MODERATE SECRETIONS RECOVERED FROM ETT. DICKSON IN COLOR.
--- NOTE | 2021-01-27 09:30 | NUR ---
MD AT BEDSIDE ROUNDING
--- NOTE | 2021-01-27 11:14 | NUR ---
UPDATED SON VIA PHONE
--- NOTE | 2021-01-27 14:00 | NUR ---
PT INTUBATED AND SEDATED, NO S/S OF DISTRESS NOTED
--- NOTE | 2021-01-27 16:15 | NUR ---
TUBE FEED INITIATED THRU OG TUBE PER ORDERS
--- NOTE | 2021-01-27 19:15 | NUR ---
vent cont assisted by pt. cardiac monitor technician shows sinus rhythm 95. ivf infusing well. estrella cath in place. urine yellow & contains sediment. turned & repositioned. requires total care for all needs. fall precautions, scds, bilat wrist restraints & airmattress conts.
--- NOTE | 2021-01-27 22:00 | NUR ---
vent cont assisted by pt. ivf conts.
[2021-01-28] VITALS (15 sets, daily range): BP systolic 95–160; BP diastolic 63–87
--- NOTE | 2021-01-28 00:01 | NUR ---
vent cont assisted by pt. keg header shows sinus rhythm hr 82.
--- NOTE | 2021-01-28 02:00 | NUR ---
vent cont assisted by pt. estrella draining well.
--- NOTE | 2021-01-28 04:30 | NUR ---
bath & bed change x2 assists.
--- NOTE | 2021-01-28 05:17 | NUR ---
lab here. blood drawn. rt here. abg drawn.
--- NOTE | 2021-01-28 05:37 | NUR ---
xray here. pcxr obtained.
[2021-01-28 06:24] LABS: HEMATOCRIT 38.9 % (39.0-50.0); HEMOGLOBIN 12.6 g/dl (14.0-18.0); MEAN CORPUSCULAR HGB 29.8 pG CALC (26.0-32.0); MEAN CORPUSCULAR HGB CONC 32.4 g/dL CAL (32.0-36.0); RED BLOOD COUNT 4.23 mill/uL (4.70-6.10); RED CELL DISTRI WIDTH 14.1 % (11.5-15.5)
[2021-01-28 06:43] LABS: ANION GAP 12 (6-22 (CALC)); BUN 35 mg/dL (8-23); BUN/CREATININE RATIO 43 (12-20 (CALC)); CARBON DIOXIDE 35 mmol/l (22-30); CHLORIDE 94 mmol/l (95-108); CREATININE 0.8 mg/dL (0.7-1.3); GFR > 60 ML/MIN (>=60 (CALC)); GFR FOR AFR.AMER. > 60 ML/MIN (>=60 (CALC)); MAGNESIUM 1.7 mg/dL (1.6-2.3); POTASSIUM 3.8 mmol/l (3.5-5.1); SODIUM 137 mmol/l (137-146)
--- NOTE | 2021-01-28 07:00 | NUR ---
ASSUMED CARE OF PT FROM MARIANNE HARPER LPN. PT INTUBATED AND SEDATED, NO S/S OF DISTRESS NOTED
--- NOTE | 2021-01-28 07:41 | NUR ---
pt c nad. no acute changes in presentation at this time. weaned fio2 and rte as per pt vitals. blender machine operator to monitor.
--- NOTE | 2021-01-28 10:45 | NUR ---
UPDATED SON VIA PHONE
--- NOTE | 2021-01-28 14:45 | NUR ---
PT PRESENTS WITH MRSA PNEUMONIA, VANCOMYCIN ORDERED FOR PHARMACY TO DOSE. SCR REMAINS UNCHANGED, KIDNEY FUNCTION STABLE. TROUGH 01/28 @ 0930 = 16 MCG/ML. CONTINUE VANCOMYCIN 1250MG IV Q12H. CHECK TROUGH AGAIN PRIOR TO PM DOSE ON 01/29. PHARMACY WILL CONTINUE TO FOLLOW
--- NOTE | 2021-01-28 16:36 | NUR ---
UPDATED SON VIA PHONE
--- NOTE | 2021-01-28 19:15 | NUR ---
vent cont. no acute distress. night monitor shows a fib pvcs. ivf infusing well. estrella cath in place. urine yellow. bilat scds, wrist restraints, air mattress & fall precautions cont. turned & repositioned. requires total assist for all care.
--- NOTE | 2021-01-28 22:00 | NUR ---
vent cont unassisted by pt. estrella draining well.
[2021-01-29] VITALS (57 sets, daily range): BP systolic 105–217; BP diastolic 58–128
--- NOTE | 2021-01-29 00:01 | NUR ---
vent cont. no distress. physicians and surgeons shows a fib pvcs hr 86.
--- NOTE | 2021-01-29 02:00 | NUR ---
vent cont unassisted by pt. estrella draining well.
--- NOTE | 2021-01-29 03:30 | NUR ---
lab here. blood drawn.
--- NOTE | 2021-01-29 04:50 | NUR ---
xray here. pcxr obtained. rt here. abg drawn.
--- NOTE | 2021-01-29 05:00 | NUR ---
bath & linen change x2 assists.
[2021-01-29 05:37] LABS: HEMATOCRIT 42.4 % (39.0-50.0); HEMOGLOBIN 13.6 g/dl (14.0-18.0); MEAN CELL VOLUME 93.6 fL CALC (80.0-100.0); MEAN CORPUSCULAR HGB CONC 32.1 g/dL CAL (32.0-36.0); RED BLOOD COUNT 4.53 mill/uL (4.70-6.10); RED CELL DISTRI WIDTH 14.1 % (11.5-15.5)
[2021-01-29 05:48] LABS: BUN 37 mg/dL (8-23); BUN/CREATININE RATIO 44 (12-20 (CALC)); CHLORIDE 94 mmol/l (95-108); CREATININE 0.8 mg/dL (0.7-1.3); GFR > 60 ML/MIN (>=60 (CALC)); GFR FOR AFR.AMER. > 60 ML/MIN (>=60 (CALC)); MAGNESIUM 1.8 mg/dL (1.6-2.3); POTASSIUM 3.6 mmol/l (3.5-5.1); SODIUM 139 mmol/l (137-146)
[2021-01-29 05:55] LABS: ANION GAP 6 (6-22 (CALC))
[2021-01-29 06:04] LABS: CARBON DIOXIDE 43 mmol/l (22-30)
--- NOTE | 2021-01-29 07:25 | NUR ---
pt noted awake in bed; no apparent distress noted; assessment completed at this time; pt alert but drowsy; pt does not track this writer producer or follow commands; no s/sx of pain noted; no n/v noted; resp even and unlabored; lungs coarse/ diminished bases; skin color wnl; vent intact and maintained with settings of AC mode, tv 500, rate 18, peep 5.0, fio2 40%; 8.0Fr ETT secured at 24cm; hr irreg; strong pulses; no edema noted; afib on the monitor; abd soft/ distended with bs present; no bm noted per writer producer; estrella to gravity draining sediment yellow urine; #18 ems site flushed and patent; #20 to lw flushed and patent; no redness or edema noted at site; restraints reinforced; repositioned; plan of care explained; will continue to monitor
--- NOTE | 2021-01-29 08:15 | NUR ---
remains intubated; remains drowsy; RT at bedside; will continue to monitor
--- NOTE | 2021-01-29 09:02 | NUR ---
Dr Simon present at bedside; pt slightly more alert/awake; able to track this health underwriter to left side of bed; afib 130s on monitor; Dr Simon aware; will continue to monitor
--- NOTE | 2021-01-29 10:00 | NUR ---
awake in bed; more alert; attempts to track this casualty underwriter in room, occasionally; does not follow commands; iv intact and patent; afib on monitor; estrella to gravity; restraints continue; will continue to monitor
--- NOTE | 2021-01-29 10:01 | NUR ---
tevin Evans called this com writer; passcode verified; update provided;
--- NOTE | 2021-01-29 11:30 | NUR ---
Dr Simon present at bedside to assess pt; MD informed per this grant writer of increased resp rate of upper 30s and 40s; RT and this grant writer ETT and orally suctioning lg chang secretions; pt afib 130-140s; plans are to attempt extubation tomorrow morning; pt to return to AC mode and continue with sedation using propofol only at this time; will continue to monitor
--- NOTE | 2021-01-29 11:40 | NUR ---
PT HAS BEEN ON WEANING TRIAL OF PRESSURE SUPPORT OF 5 PEEP +5 AND 40% SINCE 729. COPIOUS AMOUNT OF YELLOW DICKSON SECRETIONS RECOVERED AFTER MULTIPLE PASSES AND SALINE LAVAGE. PT HAD BREATHING AT A RATE OF 34-36 BPM THROUGHOUT MOST OF THE TRIAL, BUT TOWARD THE END OF TRIAL INCREASED RESPIRATIONS TO [address] JARRETT WAS UDATED ABOUT SECRETIONS, RESPIRATIONS, AND RUNS OF A. FIB. TRIAL STOPPED AND PT WAS PLACED BACK ON PREVIOUS ASSIST CONTROL SETTINGS. DR. JARRETT WOULD LIKE FOR US TO CINTINUE AGGRESSIVE SUCTIONING AND ATTEMPT WEANING TRIAL AGAIN TOMORROW.
--- NOTE | 2021-01-29 11:45 | NUR ---
pt placed back to vent/ac mode
--- NOTE | 2021-01-29 12:00 | NUR ---
awake in bed; vent intact and maintained with settings of Ac mode, rate 18, 500 TV, peep 5.0, 40% FIO2; propofol infusing and to be titrated for higher level of sedation; pt repositioned; estrella to gravity; no redness or edema noted at sites; afib on monitor; oral care provided, tongue noted white coated; restraints intact; will continue to monitor
--- NOTE | 2021-01-29 13:50 | NUR ---
16Fr ng tube placed to right nare; placement verified via air bolus; xray to be obtained for confirmation of placement
--- NOTE | 2021-01-29 14:02 | NUR ---
Dr Simon present at bedside to assess pt
--- NOTE | 2021-01-29 14:35 | NUR ---
xray at bedside
--- NOTE | 2021-01-29 16:00 | NUR ---
remains intubated and sedated; no apparent distress noted; iv intact and patent; estrella to gravity; afib on monitor; restraints; repositioned; will continue to monitor
--- NOTE | 2021-01-29 17:00 | NUR ---
#20 started to rw x1 attempt; propofol gtt infusing without complication; #18 ems site removed with catheter tip intact; pt repositioned to left side; all extremities floated; oral care provided; will continue to monitor
--- NOTE | 2021-01-29 18:01 | NUR ---
vented and sedated; no distress noted; iv intact; afib on monitor
--- NOTE | 2021-01-29 20:00 | NUR ---
PATIENT REMAINS INTUBATED ON VENT. VENT SETTINGS PER VENT INTERVENTION SCREEN. SEDATED ON PROPOFOL GTT AT 40 MCG/KG/MIN INTO RW IV SITE. RASS -3. BREATH SOUNDS COARSE THROUGHOUT. SUX ETT FOR DICKSON SECRETIONS AND ORALLY FOR THICK DICKSON. NGT IN PLACE IN RT NARE. POST CATHETER, BILATERAL WRIST AND SCD'S IN PLACE. ON AIR MATTRESS. PIPER INSTALLER SHOWS AFIB, HR 110'S.
--- NOTE | 2021-01-29 21:33 | NUR ---
DR MEDINA PHONED IN, SPOKE WITH SCOTTIE, GAVE INSTRUCTIONS TO WEAN PATIENT OF VENTILATOR TONIGHT.
--- NOTE | 2021-01-29 22:00 | NUR ---
PROPOFOL GTT WEANED AND OFF AT THIS TIME.
--- NOTE | 2021-01-29 22:21 | NUR ---
VENT CHANGED FROM A/C MODE TO SPONTANEOUS BY RT.
--- NOTE | 2021-01-29 23:00 | NUR ---
TOLERATING VENT SETTING CHANGE WELL. PATIENT OPENS EYES TO NAME. FOLLOWS SOME COMMANDS. VSS. HR 100-120. RR 32. O2 SAT 94%
[2021-01-30] VITALS (24 sets, daily range): BP systolic 135–206; BP diastolic 74–118
--- NOTE | 2021-01-30 | NUR ---
PATIENT ALERT. CONITUES TO TOLERATE SPONTANEOUS VENT MODE.
--- NOTE | 2021-01-30 00:30 | NUR ---
BP ELEVATED 190'S/90'S. MEDICATED WITH HYDRALAZINE 10 MG IVP ORDERED FOR ELEVATED BP. ACCU CHECK 223, COVERED PER SS PROTOCOL. PATIENT INCONTINENT OF LARGE LIQUD/MUCOUSY STOOL. SKIN CARE GIVEN AND PARTIAL BED CHANGE. SUX ORALLY AND PER ETT. TURNED AND REPOSITIONED.
--- NOTE | 2021-01-30 02:00 | NUR ---
BP RESPONDED TO HYDRALAZINE GIVEN EARLIER. FREQ SUX ORALLY FOR THICK DICKSON SPUTUM AND ETT FOR SAME. PATIENT ALERT, CALM AND COOPERATIVE. RESTRAINTS REMAIN TO BILATERAL WRISTS. REMAINS ON SPONTANEOUS MODE ON VENT.
--- NOTE | 2021-01-30 04:00 | NUR ---
NO CHANGES TO REPORT. VSS. AFIB ON VENT WITH VARIABLE RATE.
--- NOTE | 2021-01-30 05:50 | NUR ---
PT EXTUBATED, PLACED ON 4L. O2 SAT DROPPED TO 89. INCREASED TO 6L.
--- NOTE | 2021-01-30 06:20 | NUR ---
COYD ENT EXTUBATED EARLIER. VSS.
[2021-01-30 06:28] LABS: HEMATOCRIT 44.1 % (39.0-50.0); HEMOGLOBIN 14.2 g/dl (14.0-18.0); MEAN CELL VOLUME 92.1 fL CALC (80.0-100.0); MEAN CORPUSCULAR HGB 29.6 pG CALC (26.0-32.0); MEAN CORPUSCULAR HGB CONC 32.2 g/dL CAL (32.0-36.0); RED BLOOD COUNT 4.79 mill/uL (4.70-6.10); RED CELL DISTRI WIDTH 14.4 % (11.5-15.5)
--- NOTE | 2021-01-30 07:05 | NUR ---
pt awake in bed; no apparent distress noted; pt nonverbal with staff at this time; pt able to track singer songwriter in room and look at staff when name is called; no s/sx of pain noted; no n/v noted; resp even and unlabored; lungs clear with faint exp wheeze/ diminished bases; skin color wnl; o2 per vapotherm at 40L and 50% FiO2; cough noted; suction at bedside; hr irreg; strong pulses; edema noted to bilat hands/arms; afib on monitor; abd soft with bs present; no bm noted per singer songwriter; estrella to gravity draining sediment/cloudy yellow urine; #20 saline locked to rw; no redness or edema noted at site; pt repositioned to left side; extremities floated; air mattress; call light within reach; will continue to monitor
[2021-01-30 07:08] LABS: ANION GAP 12 (6-22 (CALC)); BUN 40 mg/dL (8-23); BUN/CREATININE RATIO 49 (12-20 (CALC)); CARBON DIOXIDE 34 mmol/l (22-30); CHLORIDE 98 mmol/l (95-108); CREATININE 0.8 mg/dL (0.7-1.3); GFR > 60 ML/MIN (>=60 (CALC)); GFR FOR AFR.AMER. > 60 ML/MIN (>=60 (CALC)); MAGNESIUM 1.9 mg/dL (1.6-2.3); SODIUM 141 mmol/l (137-146)
--- NOTE | 2021-01-30 08:05 | NUR ---
resting in bed with eyes closed; vapotherm intact and maintained; estrella to gravity; afib on monitor; call light within reach; will continue to monitor
--- NOTE | 2021-01-30 08:45 | NUR ---
Dr Simon present at bedside to assess pt and discuss plan of care
--- NOTE | 2021-01-30 10:00 | NUR ---
resting in bed with eyes open; able to track staff throughout room; attempts to follow some commands; nonverbal; oral care with suctioning; afib on monitor; repositinoed to supine; will continue to monitor
[2021-01-30 10:24] LABS: URINE BILIRUBIN - DIPSTICK NEGATIVE (NEGATIVE); URINE BLOOD DIPSTICK NEGATIVE (NEGATIVE); URINE COLOR YELLOW; URINE GLUCOSE - DIPSTICK NEGATIVE (NEGATIVE); URINE KETONE NEGATIVE (NEGATIVE); URINE LEUK ESTERASE NEGATIVE (NEGATIVE); URINE PROTEIN - DIPSTICK NEGATIVE (NEG-TRACE); URINE SPECIFIC GRAVITY 1.015; URINE UROBILINOGEN - DIPSTICK 0.2 E.U./dL (0.2)
[2021-01-30 10:33] LABS: URINE NITRITE - DIPSTICK NEGATIVE (Negative)
--- NOTE | 2021-01-30 11:05 | NUR ---
pt laying in bed, hob elevated. spo2 wnl. hydropress operator to monitor.
--- NOTE | 2021-01-30 11:45 | NUR ---
Dr Simon present at [facility] to assess pt and discuss plan of care
--- NOTE | 2021-01-30 12:15 | NUR ---
resting in bed with eyes open; no distress noted; vapotherm intact and maintianed; afib on monitor; repositioned to right side; hob elevated; iv intact and patent; estrella to gravity; will continue to monitor
--- NOTE | 2021-01-30 12:45 | NUR ---
tevin Evans called this underwriter mortgage loan; passcode verified; update provided;
--- NOTE | 2021-01-30 13:10 | NUR ---
NOTIFIED AT THIS TIME OF PT'S BLOOD PRESSURE BEING 204/111 AND BEING UNABLE TO GIVE PRN HYDRALIZINE. ORDERS FOR LABETOLOL PUT IN ELECTRONIC. PT'S NURSE ALISIA MICHAELS MADE AWARE OF FINDINGS, AND UPDATE TO POC.
--- NOTE | 2021-01-30 13:54 | NUR ---
titrated paramters as pe pt spo2. margaret well at this time. qc lab technician to m,onitor.
--- NOTE | 2021-01-30 14:00 | NUR ---
awake in bed; more alert; will nod head to some yes or no questions; able to whisper name; iv intact and patent; afib on monitor; pt suctioned orally for thick brown/red tinged sputum; oral care provided; estrella to gravity; will continue to monitor
--- NOTE | 2021-01-30 16:00 | NUR ---
awake in bed; vapotherm intact; estrella to gravity; iv intact; afib in monitor; repositioned; call light within reach; will continue to monitor
--- NOTE | 2021-01-30 16:30 | NUR ---
o2 sat noted at 84%; pt noted with vapotherm to side of the face; reapplied; will continue to monitor
--- NOTE | 2021-01-30 17:12 | NUR ---
PT SPO2 WNL. MIRIAM HHFNC WELL AT THIS TIME. AVIONICS REPAIR TECHNICIAN TO MONITOR.
--- NOTE | 2021-01-30 18:08 | NUR ---
awake in bed; offers no complaints; no apparent distress noted; afib on monitor; estrella to gravity; iv intact; continues with a very weak cough, suctioning required throughout day; call light within reach
--- NOTE | 2021-01-30 19:00 | NUR ---
REPORT RECEIVED FROM [place] AZUL RN. CARE OF PT ASSUMED AT THIS TIME.
--- NOTE | 2021-01-30 20:50 | NUR ---
PT REQUESTING TO DRINK, KEEPS REPEATING "WA, WA, WA" AND NODS HEAD IN THE POSITIVE WHEN QUESTIONED IF HE IS ASKING FOR WATER. PT SAT IN HIGH FOWLERS AND OFFERED SMALL SIPS OF WATER. PT APPEARS TO TOLERATE. ATTEMPT TO ADMINISTER PO CALAN, SEE E-MAR. PT ABLE TO SWALLOW MEDICATION BUT DID HAVE SOME COUGHING AFTER. CONSIDER ST EVAL.
--- NOTE | 2021-01-30 22:22 | NUR ---
PT GROANING AND REACHING OUT. PT COMMUNICATES HE WANTS TO DRINK. WET SWABS USED TO RELIEVE DRY MOUTH/THIRST. PT TOLERATES. 20ML CHIPPED ICE PROVIDED. PT TOLERATES.
[2021-01-31] VITALS (24 sets, daily range): BP systolic 110–175; BP diastolic 67–101
--- NOTE | 2021-01-31 00:15 | NUR ---
MOUTH MOISTENED WITH WET ORAL SWABS FOR COMFORT.
--- NOTE | 2021-01-31 02:29 | NUR ---
PT APPEARS TO BE SLEEPING COMFORTABLY. LAYING IN BED SEMIFOWLERS. EYES CLOSED. RESPIRATIONS REGULAR AND UNLABORED. NO APPARENT DISTRESS. NON-INVASIVE HEMODYNAMICSON MONITOR WNL/BASELINE.
--- NOTE | 2021-01-31 04:37 | NUR ---
PT APPEARS TO BE SLEEPING COMFORTABLY. LAYING IN BED SEMIFOWLERS. EYES CLOSED. RESPIRATIONS REGULAR AND UNLABORED. NO APPARENT DISTRESS. NON-INVASIVE HEMODYNAMICS ON MONITOR WNL/BASELINE.
--- NOTE | 2021-01-31 04:44 | NUR ---
Diane CHANG KEYBOARD SPECIALIST IN ROOM COLLECTING LAB WORK.
--- NOTE | 2021-01-31 05:00 | NUR ---
ASSIST IN Crissy QUEVEDO SCREW CUTTER IN PERFORMING KURT-CARE AND PARTIAL LINEN CHANGE. MOUTH MOISTENED WITH SWABS AND MOUTH MOISTURIZER APPLIED FOR COMFORT.
[2021-01-31 05:14] LABS: HEMATOCRIT 43.2 % (39.0-50.0); HEMOGLOBIN 13.9 g/dl (14.0-18.0); MEAN CELL VOLUME 93.1 fL CALC (80.0-100.0); MEAN CORPUSCULAR HGB CONC 32.2 g/dL CAL (32.0-36.0); RED BLOOD COUNT 4.64 mill/uL (4.70-6.10); RED CELL DISTRI WIDTH 14.4 % (11.5-15.5)
[2021-01-31 05:50] LABS: ANION GAP 10 (6-22 (CALC)); BUN 36 mg/dL (8-23); BUN/CREATININE RATIO 41 (12-20 (CALC)); CARBON DIOXIDE 37 mmol/l (22-30); CHLORIDE 102 mmol/l (95-108); CREATININE 0.9 mg/dL (0.7-1.3); GFR > 60 ML/MIN (>=60 (CALC)); GFR FOR AFR.AMER. > 60 ML/MIN (>=60 (CALC)); MAGNESIUM 2.1 mg/dL (1.6-2.3); POTASSIUM 2.8 mmol/l (3.5-5.1); SODIUM 147 mmol/l (137-146)
--- NOTE | 2021-01-31 07:51 | NUR ---
REPORT RECEIVED FROM ALISIA RIOS. PT AWAKE AND MOANING. PT CLEARLY STATES "OK" WHEN EXPLAINED STEWARD/STEWARDESS DECK WOULD BE HIS NURSE TO DO. ABLE TO FOLLOW VOCAL COMMANDS OF THROAT AND VOCAL EXERCISES. DENIES ANY PAIN, NO EXPLANATION OF CONSTANT MOAN AT THIS TIME. VSS. WILL CONTINUE TO MONITOR.
--- NOTE | 2021-01-31 09:29 | NUR ---
S: YAMILET BRAVO is a 70 M who presents with COPD. He has a history of PNEUMONIA. All medications in patient's chart were reviewed. O: VS: BP <157/90>, P<118>, RR<27>,T<98.7> W <130kg>, HT<71IN>, Scr=<0.9>, A: Blood culture is pending. SPUTUM IS GROWING MRSA SENSITIVE TO VANCOMYCIN P: Patient is on CEFEPIME 2GRAMS Q12H . Vancomycin ordered for pharmacy to dose. Start Vancomycin 1250MG IV Q12H. Vancomycin trough is 18 NEXT TROUGH on 01/31/21 @2200. Vancomycin goal trough is between 15-20. Pharmacy will follow and or advise on antibiotics use as needed.
--- NOTE | 2021-01-31 10:00 | NUR ---
PT FOLLOWING COMMANDS REPEATS VOICE QUES. ATTEMPTING TO CLEAR THROAT AND COUGH WITH DEEPER AND STRONGER FORCE. TOLERATING MEDS CRUSHED WITH PUDDING. SAFETY REVIEWED, WILL CONTINUE TO MONITOR.
--- NOTE | 2021-01-31 11:25 | NUR ---
PT GIVEN TYLENOL AT THIS TIME. PT APPEARS TO BE UNCOMFORTABLE. PT HAS CONTINUEAL MOANING AND HR IS ELEVATED. WILL CONTINUE TO MONITOR.
--- NOTE | 2021-01-31 12:38 | NUR ---
ALL CHARTING SHOULD BE UNDER ALISIA DALAL. NOT ALISIA RIOS.
--- NOTE | 2021-01-31 14:00 | NUR ---
PT REPOSITIONED AT THIS TIME TO THE RIGHT SIDE. VSS, DOES NOT APPEAR TO BE IN ANY TYPE OF DISTRESS. PT NOT MOANING AT THIS TIME. PT ALSO REQUESTING WATER. GIVEN THICKENED WATER WITH 2 PACKETS OF THICKENER PER ONE 4 OUNCE CUP. DOES WELL, NO SIGNS OF ASPIRATIONS.
--- NOTE | 2021-01-31 16:00 | NUR ---
TOTAL BED BATH GIVEN AT THIS TIME. PT APPEARS TO TOLERATE WELL, ROTATED TO LEFT SIDE. VSS. SAFETY REVIEWED. WILL CONTINUE TO MONITOR.
--- NOTE | 2021-01-31 18:16 | NUR ---
PT GIVEN PILLS WITH APPLESAUCE, NOT CRUSHED. PT DOES NOT APPEAR TO HAVE S/S OF ASPIRATION. PT HR IS MORE CONTROLLED AFTER GIVING LOPRESSOR, CURRENTLY HR IS 107. OTHER VSS. PT MORE AWAKE AND ALERT DAY GOES ON. ATTEMPTING TO VOCALIZE NEEDS MORE. BED ALARM ON AND SAFETY REVIEWED. WILL CONTINUE TO MONITOR.
--- NOTE | 2021-01-31 20:00 | NUR ---
RESTING IN BED. AWAKE, ALERT, ORIENTED TO PERSON. SPEECH DIFFICCULT TO UNDERSTAND. FOLLOWS SOME DIRECTIONS. PATIENT IS VERY WEAK. RESP SHALLOW, NON-LABORED. REMAINS ON VAPOTHERM 30 L/40% O2 SAT 93% COARSE BREATH SOUNDS HEARD THROUGHOUT AND DIMINISHED IN BASES. ABD OBESE, SOFT WITH ACTIVE BOWEL SOUNDS. POST DRAINS KRIS URINE. SALINE LOCKS INTACT IN LW AND RW, BOTH SITES HEALTHY. CRACKER AND COOKIE MACHINE OPERATOR SHOWS AFIB. EXPLAINED PLAN OF CARE. CALL LOPEZ IN REACH.
--- NOTE | 2021-01-31 22:00 | NUR ---
LAB HERE TO DRAW BLOOD FOR VANCO TROUGH.
--- NOTE | 2021-01-31 22:30 | NUR ---
LAB UNABLE TO GET BLOOD FOR VANCO TROUGH. BLOOD DRAWN BY NURSING FOR VANCO TROUGH. WILL AWAIT RESULTS TO HANG ALEXANDRAO.
--- NOTE | 2021-01-31 23:20 | NUR ---
VANCO TROUGH 18. FRANK HUNG AT THIS TIME.
[2021-02-01] VITALS (16 sets, daily range): BP systolic 108–169; BP diastolic 65–99
--- NOTE | 2021-02-01 | NUR ---
PATIENT AWAKE ON ROUNDS. TURNED AND REPOSITIONED. VSS. RESP SHALLOW, NON-LABORED. VAPOTHERM AT 25 L/40%
--- NOTE | 2021-02-01 00:05 | NUR ---
PATIENT RESTING WITH EYES CLSOED. RESP SHALLOW, NON-LABORED. VSS. AFIB ON MONITOR HR VARIABLE.
--- NOTE | 2021-02-01 02:00 | NUR ---
TURNED AND REPOSITIONED. VSS. AFIB ON MONITOR.
--- NOTE | 2021-02-01 04:10 | NUR ---
NO CHANGES TO REPORT. MAINTAINING O2 SAT IN THE 90'S ON VAPOTHERM 25 L/40%
[2021-02-01 05:56] LABS: HEMOGLOBIN 14.2 g/dl (14.0-18.0); MEAN CELL VOLUME 95.6 fL CALC (80.0-100.0); MEAN CORPUSCULAR HGB 29.5 pG CALC (26.0-32.0); MEAN CORPUSCULAR HGB CONC 30.9 g/dL CAL (32.0-36.0); RED BLOOD COUNT 4.81 mill/uL (4.70-6.10); RED CELL DISTRI WIDTH 14.5 % (11.5-15.5)
[2021-02-01 05:58] LABS: BUN 40 mg/dL (8-23); BUN/CREATININE RATIO 48 (12-20 (CALC)); CARBON DIOXIDE 37 mmol/l (22-30); CHLORIDE 107 mmol/l (95-108); CREATININE 0.8 mg/dL (0.7-1.3); GFR > 60 ML/MIN (>=60 (CALC)); GFR FOR AFR.AMER. > 60 ML/MIN (>=60 (CALC)); MAGNESIUM 2.3 mg/dL (1.6-2.3); SODIUM 151 mmol/l (137-146)
--- NOTE | 2021-02-01 06:00 | NUR ---
HYDRALAZINE 25 MG IVP FOR ELEVATED BP. ACCU CHECK 190, COVERED PER SS PROTOCOL.
[2021-02-01 06:01] LABS: ANION GAP 11 (6-22 (CALC)); POTASSIUM 3.5 mmol/l (3.5-5.1)
--- NOTE | 2021-02-01 06:28 | NUR ---
LOPRESSER 5 MG IVP GIVEN FOR ELEVATED HR.
--- NOTE | 2021-02-01 07:00 | NUR ---
ASSUMED CARE FROM ALISIA RODRIGUEZ. NO S/S OF DISTRESS NOTED. PT RESITNG IN BED
--- NOTE | 2021-02-01 10:20 | NUR ---
YAMILET BRAVO is a 70 year old Male. Admitted for acute respiratory failure with hypoxia and hypercapnia, COPD exacerbation, N/V and dehydration he is being treated for acute hypoxic failure with hypercapnic failure secondary to COPD exacerbation from pneumonia with vancomycin 1250 mg IV q12h. final blood culture pending. Ht: 71 in, Wt: 129 kg, SCr: 0.8 mg/dl, CrCl (calc) = 118 ml/min WBC: 18.2 thou/ul, Tmax: 98.5 F. Tcurrent: 97.3 F HR: 112 beats/min, BP:131/84 mmHg, RR 24 breaths/min,Sa02: 90 % Trough= 18 mg/L AP is therapeutic at the current dose. Goal level is 15-20 mg/L. 1. Continue vancomycin 1250 mg IV q12h. 2. Check trough 30 minutes before 4th dose on 02/02/21 at 2200. 3. Monitor BMP daily while on vancomycin 1250 mg IV q12h. Pharmacy will continue to follow.
--- NOTE | 2021-02-01 13:05 | NUR ---
SON AT BEDSIDE WITH ESCORT AND ROSSY
--- NOTE | 2021-02-01 15:22 | NUR ---
PT TRANSPORTED TO CT SCAN WITH RN, ENROBING MACHINE FEEDER, AND RT AT BEDSIDE
--- NOTE | 2021-02-01 15:47 | NUR ---
PT RETURNED FROM CT SCAN
--- NOTE | 2021-02-01 19:30 | NUR ---
RESTING IN BED. AWAKE, ALERT, ORIENTED TO PERSON. ANSWERS SOME QUESTINS AND FOLLOWS SOME COMMANDS. VERY WEAK. VSS. AFEBRILE. RESP NON-LABORED. REMAINS ON VAPOTHERM 25 L/FIO2 40% O2 SAT 94% BREATH SOUNDS COARSE THROUGHOUT LUNG BRODY AND DIMINISHED IN BILATERAL BASES. SALINE LOCK INATCT TO LW AND RW. BOTH SITES BENIGN. ON AIR MATTRESS. SCD'S ON BILATERALLY. GLASS NOVELTY MAKER SHOWS AFIB.
--- NOTE | 2021-02-01 22:00 | NUR ---
WATCHING TV. ATTEMPTS TO SPEAK BUT VERY DIFFICULT TO UNDERSTAND. VSS. AFIB ON MONITOR. BOTH SALINE LOCKS IN LW AND RW FLUSHED AND PATENT.
[2021-02-02] VITALS (24 sets, daily range): BP systolic 110–160; BP diastolic 76–98
--- NOTE | 2021-02-02 | NUR ---
REPOSITIONED. VSS. RESP NON-LABORED. VAPOTHERM SETTINGS REMAIN AT 25 L/40% O2 SAT IN THE 90'S.
--- NOTE | 2021-02-02 02:30 | NUR ---
VSS. PATIENT STILL AWAKE. COMPLETE BED BATH GIVEN AND PARTIAL BED CHANGE. TURNED AND REPOSITIONED. GROIN AREA REDDENED, BARRIER OINTMENT APPLIED.
--- NOTE | 2021-02-02 04:00 | NUR ---
PATIENT HAS ONLY DOZED FOR SHORT INTERVALS TONIGHT. SOMEWHAT RESTLESS. FREQ EMOTIONAL SUPPORT AND REASSURANCE PROVIDED. VSS.
--- NOTE | 2021-02-02 06:05 | NUR ---
NO CHANGES TO REPORT. VSS. ACCUC HECK 196, COVERED PER SS PROTOCOL.
[2021-02-02 06:27] LABS: HEMATOCRIT 48.5 % (39.0-50.0); HEMOGLOBIN 14.9 g/dl (14.0-18.0); IMMATURE GRANULOCYTES 0.4 % (0.0-5.0); MEAN CORPUSCULAR HGB 29.5 pG CALC (26.0-32.0); MEAN CORPUSCULAR HGB CONC 30.7 g/dL CAL (32.0-36.0); NEUT# 13.52 thou/uL (1.82-7.42); RED BLOOD COUNT 5.05 mill/uL (4.70-6.10); RED CELL DISTRI WIDTH 14.5 % (11.5-15.5)
[2021-02-02 06:49] LABS: ANION GAP 12 (6-22 (CALC)); BUN 43 mg/dL (8-23); BUN/CREATININE RATIO 44 (12-20 (CALC)); CARBON DIOXIDE 36 mmol/l (22-30); CHLORIDE 109 mmol/l (95-108); GFR > 60 ML/MIN (>=60 (CALC)); GFR FOR AFR.AMER. > 60 ML/MIN (>=60 (CALC)); MAGNESIUM 2.2 mg/dL (1.6-2.3); POTASSIUM 3.3 mmol/l (3.5-5.1); SODIUM 153 mmol/l (137-146)
--- NOTE | 2021-02-02 19:28 | NUR ---
PT WAS HEARD YELLING OUT, PT ASSESSEMENT COMPLETED AT THIS TIME. LUNG SOUNDS CLEAR/DIMINISHED AT THIS TIME. PT KEEPS ATTEMPTING TO VOICE NEEDS, MOUTH CARE PROVIDED AT THIS TIME. UPON SHOWING/GUESSING TO ASSESS PT WANTS, A MOUTH SWAB MOISTENED WAS PLACE IN HIS HAND, WHEN ASKED IF THAT IS WHAT HE WANTED, HE SHOOK HIS HEAD YES. WITH ENCOURAGEMENT PT WAS ABLE TO RAISE MOUTH SWAB TO HIS HIS MOUTH HIMSELF, APPEARED SATISFIED AT THIS TIME. CALL LIGHT PLACED CLOSER FOR HEARING, SOUND TURNED UP TO TV AND HOB RAISED TO 45.
--- NOTE | 2021-02-02 21:47 | NUR ---
PT MEDICATED ORDERS PROVIDE AND REPOSITIONED WITH PILLOWS. HE IS ABLE TO USE HIS LEFT ARM AND HAND WITH GREAT WEAKNESS AND IS ATTEMPTING TO MOVE HIS LEFT HAND WITH VERY LIMITED MOVEMENT/VERY SLIGHT MOVEMENT IN THE R.HAND. NO ATTEMPT TO LIFT R.ARM. TV CHANNEL WAS CHANGED FOR PT ENTERTAINMENT, ASKED IF THIS IS OKAY, HE NODDED YES.
--- NOTE | 2021-02-02 22:12 | NUR ---
PT MEDICATED ORDERS PROVIDE AND ASSISTED REPOSITIONING FOR COMFORT. PT COUGHING AND HAVING DIFFICULTY CLEARING AIRWAY, PT SUCTIONED TO ASSIST CLEARING THROAT. PT IS RESTING COMFORTABLY WITH TV ON AND LIGHTS ON LOW.
--- NOTE | 2021-02-02 22:32 | NUR ---
VANCOMYCIN IS BEING ADMINISTERED AT THIS TIME. POST CATHETER DRAINING TO GRAVITY DARK YELLOW CLOUDY URINE PUNGENT URINE. PT COVERED FOR COMFORT AND PILLOWS REPOSITIONED.
[2021-02-03] VITALS (21 sets, daily range): BP systolic 94–167; BP diastolic 60–101
--- NOTE | 2021-02-03 00:50 | NUR ---
PT MEDICATED FOR BLOOD SUGAR OF 163/2 UNITS ADMINISTERED AT THIS TIME. PT REPOSITIONED, HIS LEFT LEG WAS DRAPED OFF THE BED RAIL WHEN I ENTERED. THIS LEG WAS MOVED BACK TOWARD CENTER OF THE BED AND PLACED ON PILLOW FOR COMFORT. POST CATH DRAINING TO GRAVITY.
--- NOTE | 2021-02-03 02:40 | NUR ---
PT OBSERVED TO HAVE REMOVED ALL COVERS HIMSELF, REPOSITIONED ARM ON PILLOW AND LEFT W/COVERS REMOVED FOR COMFORT. PT APPEARS CALM AT THIS TIME AND IS NOT YELLING OUT.
--- NOTE | 2021-02-03 05:02 | NUR ---
PT REPOSITIONED AND BEDDING CHANGED, PT WAS CLEAN OF STOOL. AIR MATTRESS IS IN PLACE. POST DRAINING TO GRAVITY. 02NC@6L. PT PROVIDED MOISTENED SWABS FOR MOUTH COMFORT AND CARE. WHEN PLACED IN LEFT HAND HE MOVES THE SWAB TO HIS MOUTH BY HIMSELF.
--- NOTE | 2021-02-03 06:17 | NUR ---
PT MEDICATED W/IV ANTIBIOTIC THERAPY.
[2021-02-03 06:41] LABS: IMMATURE GRANULOCYTES 0.5 % (0.0-5.0); MEAN CELL VOLUME 100.6 fL CALC (80.0-100.0); MEAN CORPUSCULAR HGB 29.6 pG CALC (26.0-32.0); MEAN CORPUSCULAR HGB CONC 29.4 g/dL CAL (32.0-36.0); NEUT# 10.74 thou/uL (1.82-7.42); RED BLOOD COUNT 5.07 mill/uL (4.70-6.10); RED CELL DISTRI WIDTH 14.6 % (11.5-15.5)
--- NOTE | 2021-02-03 09:14 | NUR ---
Pt done for swallowing eval at this time.
[2021-02-03 10:35] LABS: ALBUMIN 3.6 g/dL (3.2-5.0); ALKALINE PHOSPHATASE 79 u/l (38-126); ANION GAP 15 (6-22 (CALC)); BILIRUBIN, TOTAL 1.1 mg/dL (0.0-1.4); BUN 44 mg/dL (8-23); BUN/CREATININE RATIO 33 (12-20 (CALC)); CARBON DIOXIDE 36 mmol/l (22-30); CHLORIDE 112 mmol/l (95-108); CREATININE 1.3 mg/dL (0.7-1.3); GFR 55 ML/MIN (>=60 (CALC)); GFR FOR AFR.AMER. > 60 ML/MIN (>=60 (CALC)); POTASSIUM 3.6 mmol/l (3.5-5.1); SGOT/AST 42 u/l (19-48); SODIUM 160 mmol/l (137-146); TOTAL PROTEIN 7.7 g/dL (6.3-8.2)
--- NOTE | 2021-02-03 12:15 | NUR ---
NEB TX NOT GIVEN DUE TO HR 154.
--- NOTE | 2021-02-03 14:46 | NUR ---
PT IS RECEIVING VANCOMYCIN AND CEFEPIME FOR PNEUMONIA. VANCOMYCIN TROUGH THIS AM @ 1000 = 22 MCG/ML, GOAL IS 15-20. RENAL FUNCTION DECREASING; SCR IS UP TO 1.3 MG/DL AND CRCL DOWN TO 72 ML/MIN WBC = 14.1 THOUS/UL, TEMP = 97.4 F DECREASE VANCOMYCIN DOSE TO 750MG IV Q12H STARTING TODAY @ 1430. CHECK TROUGH 30 MIN PRIOR TO 4TH DOSE ON 02/05/21 @ 0200. GOAL TROUGH IS 15-20 MCG/ML PHARMACY WILL CONTINUE TO FOLLOW.
--- NOTE | 2021-02-03 15:16 | NUR ---
PT note Patient is seen for supien to sit and sitting balance exercises. He is not pushing against me and is actually able to maintain static sitting for about 30 sec althgough we did opt or sonu transfers later when going to MBS testing Overall he is improving although his Am Pac is unachanged and he would benefit from EcF to decrease his burden of care
--- NOTE | 2021-02-03 19:37 | NUR ---
ABBEYAR RECEIVED FROM ABEBE CRUMP
--- NOTE | 2021-02-03 20:31 | NUR ---
ASSESSMENT COMPLETE. PATIENT AWAKE AND ALERT. COMMUNICATION BARRIER, SPEECH GARBLED. REPOSITIONED FOR COMFORT. SCD'S APPLIED. POST TO GRAVITY, PATENT. NO DISTRESS NOTED. CALL LIGHT WITHIN REACH.
[2021-02-04] VITALS (18 sets, daily range): BP systolic 97–148; BP diastolic 55–82
--- NOTE | 2021-02-04 00:50 | NUR ---
LYING IN BED. RT AT BEDSIDE PROVIDING BREATHING TREATMENT.
--- NOTE | 2021-02-04 04:20 | NUR ---
PATIENT LAYING IN BED QUIETLY AT THE MOMENT. REPOSITIONED IN BED FOR COMFORT. NON-VERBAL BEHAVIOR DOES NOT INDICATE SIGNS OF PAIN.
[2021-02-04 05:50] LABS: HEMATOCRIT 50.2 % (39.0-50.0); HEMOGLOBIN 15.1 g/dl (14.0-18.0); IMMATURE GRANULOCYTES 0.3 % (0.0-5.0); MEAN CELL VOLUME 98.2 fL CALC (80.0-100.0); MEAN CORPUSCULAR HGB 29.5 pG CALC (26.0-32.0); MEAN CORPUSCULAR HGB CONC 30.1 g/dL CAL (32.0-36.0); NEUT# 11.15 thou/uL (1.82-7.42); RED BLOOD COUNT 5.11 mill/uL (4.70-6.10); RED CELL DISTRI WIDTH 14.9 % (11.5-15.5)
[2021-02-04 05:58] LABS: BUN 57 mg/dL (8-23); BUN/CREATININE RATIO 42 (12-20 (CALC)); CARBON DIOXIDE 33 mmol/l (22-30); CHLORIDE 120 mmol/l (95-108); CREATININE 1.4 mg/dL (0.7-1.3); GFR 50 ML/MIN (>=60 (CALC)); GFR FOR AFR.AMER. > 60 ML/MIN (>=60 (CALC)); MAGNESIUM 2.3 mg/dL (1.6-2.3); POTASSIUM 3.5 mmol/l (3.5-5.1)
[2021-02-04 06:12] LABS: ANION GAP 13 (6-22 (CALC)); SODIUM 162 mmol/l (137-146)
--- NOTE | 2021-02-04 07:24 | NUR ---
PT C NAD. VSS. WEANED TO 6L NC.
--- NOTE | 2021-02-04 08:20 | NUR ---
DR VARMA IN ROUNDING ON PT.
--- NOTE | 2021-02-04 08:34 | NUR ---
SITTING UP IN BED BEING FED BREAKFAST.
--- NOTE | 2021-02-04 09:40 | NUR ---
PHYSICAL THERAPY IN WORKING WITH PT.
--- NOTE | 2021-02-04 10:47 | NUR ---
S- pt able to state [birth year] for begining of birthday and name but difficult to understand. 0- Contacted nursing prior to treatment. He was asking for water, given small amount of thicken mild and he finished his apple sauce that was on tray, coughed 1 time only (was sitting up in bed), nursing aware and brought in thinken water. PROM to R extremties and A/AAROM to L extremities with pt assisting and following some of directions. Pt BP was 107/73, HR 130-160 and pt not sat up over edge of bed secondary to HR. 02 sats 96 and desat to 84 with increase back into 90's with pt encourage to breath in thru nose and with rest periods. Time spent with pt 25 min A- Continued weakness and limitations due to medical status. AMPAC unchanged at [facility]. P- will follow.
--- NOTE | 2021-02-04 11:18 | NUR ---
CHANGE IN MENTATION NOTED. UNABLE TO FOLLOW COMMANDS NOT SPEAKING. RT EYE BRISK LT EYE SLUGGISH. DR VARMA MADE AWARE. PT TO GO TO CT.
--- NOTE | 2021-02-04 13:08 | NUR ---
RETURED TO ROOM POST CT/MRI/MRA.
--- NOTE | 2021-02-04 15:00 | NUR ---
LAYING IN BED AWAKE. NO S/S OF DISTRESS NOTED.
--- NOTE | 2021-02-04 17:15 | NUR ---
AWAKE IN BED. NO S/S OF DISTRESS NOTED. REPOSITIONED IN BED.
[2021-02-04 19:23] LABS: CREATININE 1.9 mg/dL (0.7-1.3); POTASSIUM 4.1 mmol/l (3.5-5.1)
--- NOTE | 2021-02-04 19:23 | NUR ---
ABBEYAR RECEIVED FROM ALISIA LAWSON
--- NOTE | 2021-02-04 19:28 | NUR ---
CRITICAL LAB VALUE CALLED FROM LAB. GLUCOSE 468, DR. VARMA AWARE OF GLUCOSE GREATER THAN 400. INFORMED BY OFF GOING NURSE LULU @ 0600. DR. VARMA INFORMED LULU THAT HE WILL NOT BE ON-CALL AND WILL INFORM COVERING PHYSICIAN OF GLUCOSE AND IV FLUIDS OF D5W.
--- NOTE | 2021-02-04 20:18 | NUR ---
ASSESSMENT COMPLETE. PATIENT RESTING IN BED WATCHING TV. PATIENT ALERT, SPEECH INCOMPREHENSIBLE. VSS, PATIENT IN AFIB; NO DISTRESS NOTED. NON-VERBAL BEHAVIOR DOES NOT EXPRESS PAIN. CALL LIGHT WITHIN REACH.
--- NOTE | 2021-02-04 23:19 | NUR ---
AWAKE IN BED WATCHING TV. NO DISTRESS NOTED.
[2021-02-05] VITALS (20 sets, daily range): BP systolic 49–137; BP diastolic 29–92
--- NOTE | 2021-02-05 00:24 | NUR ---
PATIENT REQUESTING WATER, GIVEN HONEY THICKEN; TOLERATED WELL. REPOSITIONED IN BED. NO DISTRESS NOTED.
[2021-02-05 02:15] LABS: HEMATOCRIT 46.9 % (39.0-50.0); IMMATURE GRANULOCYTES 0.3 % (0.0-5.0); MEAN CELL VOLUME 98.9 fL CALC (80.0-100.0); MEAN CORPUSCULAR HGB 29.5 pG CALC (26.0-32.0); MEAN CORPUSCULAR HGB CONC 29.9 g/dL CAL (32.0-36.0); NEUT# 12.24 thou/uL (1.82-7.42); RED BLOOD COUNT 4.74 mill/uL (4.70-6.10); RED CELL DISTRI WIDTH 14.9 % (11.5-15.5)
[2021-02-05 02:37] LABS: CREATININE 1.7 mg/dL (0.7-1.3); MAGNESIUM 2.5 mg/dL (1.6-2.3); POTASSIUM 3.9 mmol/l (3.5-5.1)
--- NOTE | 2021-02-05 02:49 | NUR ---
VANCO TROUGH 25, DOSE HELD.
--- NOTE | 2021-02-05 04:45 | NUR ---
RESTING QUIETLY EYES CLOSED. SATURATION 91% ON HIGH FLOW NC. BED IN LOW POSITION, LOCKED. NO DISTRESS NOTED.
--- NOTE | 2021-02-05 06:59 | NUR ---
NAD. VSS. APPROPRIATELY MOVED LEFT ARM TO ADJUST MASK.
--- NOTE | 2021-02-05 09:45 | NUR ---
physical therapy in working with pt.
--- NOTE | 2021-02-05 10:15 | NUR ---
D5W STARTED AT 75ML/HR.
--- NOTE | 2021-02-05 10:26 | NUR ---
S- name (pt asking therapist name. Unable to understand pt, he was talking some. 0- contacted nursing prior to treatment. Pt resting in bed up against L side rail. Pt positioned in supine away from rail. PROM to R extremities and A/AAROM to L x 10-15 reps. Gentle heel cord stretching done. Pt attempts to use rail to roll towrds R, max assist, L not done. Pt HR 110-120, BP 120/74, 02 sats 92, desats to mid 80's and recovers back to low 90's. Time spent with pt 30 min. A- Pt attempting to assist with movement. [facility] p-Will follow.
--- NOTE | 2021-02-05 12:30 | NUR ---
BLOOD GLUCOSE BELOW 200 INSULIN GTT NOT STARTED.
--- NOTE | 2021-02-05 14:30 | NUR ---
RESTING IN BED AWAKE. NO S/S OF DISTRESS NOTED.
--- NOTE | 2021-02-05 16:00 | NUR ---
FREQ ROUNDS MADE TO ENSURE PT SAFETY.
--- NOTE | 2021-02-05 18:08 | NUR ---
AWAKE IN BED. NO S/S OF DISTRESS NOTED.
--- NOTE | 2021-02-05 20:15 | NUR ---
awake. speech remains garbled. yelling out frequently for water. instructed pt about fluid restriction & honey thickened liquids. pt cont to yell out. o2 cont per nc. auctioneer automobile shows a fib pvcs hr 114. #20 lac d5w infusing @ 75cchr. estrella cath in place. urine clear yellow. fall & contact precautions cont. requires total care for all needs.
--- NOTE | 2021-02-05 21:00 | NUR ---
honey thickened tea given with hs meds. no choking.
[2021-02-06] VITALS (11 sets, daily range): BP systolic 107–144; BP diastolic 55–87
--- NOTE | 2021-02-06 00:01 | NUR ---
remains awake. yells out freq for water. o2 cont.
--- NOTE | 2021-02-06 02:00 | NUR ---
eyes closed. no distress. estrella draining well.
--- NOTE | 2021-02-06 03:15 | NUR ---
awake. yelling out for water. repositioned in bed.
--- NOTE | 2021-02-06 05:00 | NUR ---
blood drawn & sent to lab.
[2021-02-06 05:56] LABS: HEMOGLOBIN 14.2 g/dl (14.0-18.0); IMMATURE GRANULOCYTES 0.3 % (0.0-5.0); MEAN CELL VOLUME 100.8 fL CALC (80.0-100.0); MEAN CORPUSCULAR HGB 29.8 pG CALC (26.0-32.0); MEAN CORPUSCULAR HGB CONC 29.6 g/dL CAL (32.0-36.0); NEUT# 11.2 thou/uL (1.82-7.42); RED BLOOD COUNT 4.76 mill/uL (4.70-6.10); RED CELL DISTRI WIDTH 14.7 % (11.5-15.5)
[2021-02-06 06:11] LABS: CREATININE 1.9 mg/dL (0.7-1.3)
[2021-02-06 06:15] LABS: POTASSIUM 2.8 mmol/l (3.5-5.1)
--- NOTE | 2021-02-06 06:50 | NUR ---
PT REPORT RECEIVED FROM EXCELLENCE CONSULTANT. PT LAYING IN BED, ASKING FOR SOMETHING TO DRINK, ADVISED ABOUT FLUID RESTRICTION. CALL LIGHT WITHIN REACH.
--- NOTE | 2021-02-06 08:30 | NUR ---
pt lay moaning on bed, asking for water, reiterate that pt is on fluid restriction, pt leaning to right side of bed, repositioned pt, pt follows commands and speack is garbled but is from previous stroke, estrella draining dark yellow-orange urine
--- NOTE | 2021-02-06 09:59 | NUR ---
estrella removed, pt tolerated well
--- NOTE | 2021-02-06 11:00 | NUR ---
repositioned pt again in bed, pt continues with loose cough, asking for more water, reiterate again fluid restriction,
--- NOTE | 2021-02-06 13:19 | NUR ---
pt resting quietly, waiting for med surg to take report. pt watching tv, vital signs stable. remains with loose wet cough, afib rvr, pt alert/oriented , no use of right hand /arm from previous stroke, but moves left side with good range of motion
--- NOTE | 2021-02-06 15:20 | NUR ---
CHANGED BED LINENS AND REARRANGED PT IN BED ONCE AGAIN. VITAL SIGNS STABLE
--- NOTE | 2021-02-06 17:36 | NUR ---
REPORT GIVEN TO MULUGETA CRUMP ON MED SURG. WILL GO TO ER TO GET TELEMONITER FOR TRANSPORT. PT IS RESTING QUIETLY AT THIS TIME
--- NOTE | 2021-02-06 19:51 | NUR ---
PATIENT RESTING IN BED AT THIS TIME IN SEMI FOWLERS POSITION. EYES ARE CLOSED. RESPS ARE EVEN AND UNLABORED WITH O2 VIA NASAL CANNULA IN PLACE AT 4LPM. O2 SAT AT THIS TIME IS 97%.IVF PATENT AND INFUSING VIA LAC SITE AT 75CC/HR. SITE IS HEALTHY AT THIS ITME. SALINE LOCK TO LAC IS ALSO INTACT. POST CATH PATENT AND DRAINING KRIS URINE. TELE MONITOR IN PLACE WITH LAST READING AFIB-97. CALL LIGHT IN REACH. WILL CONT TO MONITOR.
--- NOTE | 2021-02-06 22:15 | NUR ---
PATIENT RESTING IN BED AT THIS TIME-MOSTLY NON-VERBAL AT THIS TIME-DOES FOLLOW STAFF WITH HIS EYES. HOB IS ELEVATED AND PATIENT WAS ABLE TO TAKE HIS PO MEDS WITH THICKENED PO FLUIDS. NO COUGH NOTED AFTER TAKING PO MEDS. ACCU-CHECK WAS 230-COVERED PER [employer] SS COVERAGE PROTOCOL. POSITION WAS ADJUSTED-ON AIR MATTRESS. PATIENT WITH RIGHT SIDED WEAKNESS. POST IS PATENT AND DRAINING YELLOW CLOUDY URINE. BSD BAG WAS CHANGED AND CATH STRAP APPLIED TO RIGHT THICH. NEW IV SITE TO [place] STARTED-#22 GAUGE WITH GOOD BLOOD RETURN.IVF D5W PATENT AND INFUSING AT 75CC/HR. IV SITE TO LAC DISLODGED AND D/C'ED WITH CATHS INTACT. O2 VIA NASAL CANNULA AT 4LPM WITH O2 SAT AT 96%. TELE MONITOR IN PLACE-LAST READING WAS AFIB-97. CALL LIGHT IN REACH. WILL CONT TO MONITOR.
[2021-02-07] VITALS: BP 103/70
--- NOTE | 2021-02-07 00:15 | NUR ---
PATIENT RESTING IN BED WITH EYES CLOSED. RESPS ARE EVEN AND UNLABORED AT THIS TIME. IVF PATENT AND INFUSING VIA LEFT HAND SITE AT 75CC/HR. SITE REMAINS HEALTHY. POST PATENT AND DRAINING CLOUDY YELLOW URINE. O2 VIA NASAL CANNULA IN PLACE AT 4LPM. TELE MONITOR IN PLACE. PATIENT IS ON AIR MATTRESS AND ON ISOLATION FOR MRSA. CALL LIGHT IN REACH. WILL CONT TO [facility].
--- NOTE | 2021-02-07 03:02 | NUR ---
PATIENT RESTING QUIETLY IN BED-EYES ARE CLOSED AND RESPS ARE EVEN AND UNLABORED. O2 VIA NASAL CANNULA IN PLACE AT 4LPM-O2 SAT IS 97% AT THIS TIME. POST PATENT AND DRAINING YELLOW URINE. IVF PATENT AND INFUSING VIA LEFT HAND SITE AT 75CC/HR. CALL LIGHT IN REACH. WILL CONT TO MONITOR.
[2021-02-07 04:00] VITALS: BP 105/68
--- NOTE | 2021-02-07 05:59 | NUR ---
PATIENT RESTING IN BED AT THIS TIME-EYES CLOSED AND RESPS ARE EVEN AND UNLABORED. O2 VIA NASAL CANNULA IN PLACE AT 4LPM. O2 SAT IS 96% AT THIS TIME. IVF D5W PATENT AND INFUSING VIA LEFT HAND SITE AT 75CC/HR. SITE REMAINS HEALTHY AT THIS TIME. POST PATENT AND DRAINING YELLOW URINE. HOB IS SLIGHTLY ELEVATED. CALL LIGHT IN REACH. WILL CONT TO MONITOR.
--- NOTE | 2021-02-07 07:22 | NUR ---
REPORT RECEIVED FROM ALISIA SINGH. PT RESTING SEMI-FOWLERS WITH EYES CLOSED. EASILY AWAKENS WITH LIGHT VERBAL STIMULATION. PT RESONDS TO QUESTIONS WITH GARBLED SPEECH AND HEAD NODS. DENIES PAIN, SOB OR DISCOMFORT. VS OBTAINED. BED IN LOWEST POSITION. WILL CONTINUE TO MONITOR SAFETY.
[2021-02-07 08:23] VITALS: BP 107/70
[2021-02-07 11:02] VITALS: BP 104/67
[2021-02-07 12:40] LABS: HEMATOCRIT 45.4 % (39.0-50.0); HEMOGLOBIN 13.3 g/dl (14.0-18.0); MEAN CELL VOLUME 101.3 fL CALC (80.0-100.0); MEAN CORPUSCULAR HGB 29.7 pG CALC (26.0-32.0); MEAN CORPUSCULAR HGB CONC 29.3 g/dL CAL (32.0-36.0); RED BLOOD COUNT 4.48 mill/uL (4.70-6.10); RED CELL DISTRI WIDTH 14.4 % (11.5-15.5)
[2021-02-07 12:53] LABS: ALBUMIN 3.2 g/dL (3.2-5.0); CREATININE 1.6 mg/dL (0.7-1.3); TOTAL PROTEIN 6.9 g/dL (6.3-8.2)
[2021-02-07 12:54] LABS: POTASSIUM 3.4 mmol/l (3.5-5.1)
--- NOTE | 2021-02-07 13:14 | NUR ---
IV FLUIDS DISCONTINUED AT THIS TIME. PT RESTING PEACEFULLY. DENIES PAIN, SOB OR DISCOMFORT. WILL CONTINUE TO MONITOR CLOSELY.
[2021-02-07 16:00] VITALS: BP 99/64
--- NOTE | 2021-02-07 16:00 | NUR ---
PT RESTING WITH EYES CLOSED, VSS. DOES NOT APPEAR TO BE IN ANY TYPE OF DISTRESS. SAFETY REVIEWED. WILL CONTINUE TO MONITOR.
[2021-02-07 19:14] VITALS: BP 100/60
--- NOTE | 2021-02-07 20:00 | NUR ---
PATIENT RESTING IN BED AT THIS TIME WITH HOB ELEVATED AND O2 VIA NASAL CANNULA IN PLACE. PATIENT IS AWAKE ALERT AND ORIENTED TO PERSON. PATIENT SPEECH IS GARBLED BUT MORE INTERACTIVE TONIGHT, MORE ALERT. TELE MONITOR IN PLACE WITH LAST READING AFIB 96. POST PATENT AND DRAINING KRIS URINE. SCD'S IN PLACE. SALINE LOCK TO LEFT HAND INTACT AND HEALTHY-GOOD BLOOD RETURN. PATIENT INCONT OF LARGE AMT OF ORANGISH BROWN LOOD STOOL. PATIENT WAS PROVIDED WITH PERINEAL AND POST CATH CARE USING SOAP AND WATER. PATIENT WAS TURNED AND REPOSITIONED. LINEN PADS WERE CHANGE. CATH STRAP WAS REPLACED TO RIGHT THIGH. CONTACT PRECAUTIONS MAINTAINED FOR MRSA. PATIENT IS ON AIR MATTRESS. PATIENT WITH LOOSE COUGH BUT UNABLE TO EXPECTORATE-COUGH IS WEAK. SAFETY PRECAUTIONS REINFORCED. CALL LIGHT IN REACH. WILL CONT TO MONITOR.
--- NOTE | 2021-02-07 21:30 | NUR ---
ACCU-CHECK WAS 194-COVERED PATIENT PER [facility] PROTOCOL-2UNITS SQ ORDERED. PATIENT ASSISTED WITH HS SNACK OF CEREAL BAR AND THICKENED APPLE JUICE. HOB IS ELEVATED AND TOLERATED WELL. CALL LIGHT IN REACH. WILL CONT TO MONITOR.
[2021-02-08] VITALS (7 sets, daily range): BP systolic 95–117; BP diastolic 52–65
--- NOTE | 2021-02-08 | NUR ---
PATIENT RESTING IN BED AT THIS TIME IN SEMI-FOWLERS POSITION. EYES ARE CLOSED AND RESPS ARE EVEN AND UNLABORED. O2 VIA NC IN PLACE AT 4LPM. O2 SAT IS 97% AT TH IS TIME. TELE MONITOR IN PLACE WITH LAS READING AFIB 75. SALINE LOCK TO LEFT HAND INTACT AND HEALTHY. POST PATENT AND DRAINING KRIS URINE. CALL LIGHT IN REACH. WILL CONT TO MONITOR.
--- NOTE | 2021-02-08 04:23 | NUR ---
PATIENT RESTING IN BED AT THIS TIME WITH HOB ELEVATED AND EYES CLOSED. O2 VIA NASAL CANNULA IN PLACE. POST PATENT AND DRAINING KRIS URINE. SALINE LOCK TO LEFT HAND INTACT. TELE MONITOR IN PLACE. CALL LIGHT IN REACH. WILL CONT TO MONITOR.
--- NOTE | 2021-02-08 07:00 | NUR ---
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
[2021-02-08 09:59] LABS: HEMATOCRIT 42.2 % (39.0-50.0); HEMOGLOBIN 12.6 g/dl (14.0-18.0); IMMATURE GRANULOCYTES 0.3 % (0.0-5.0); MEAN CELL VOLUME 99.5 fL CALC (80.0-100.0); MEAN CORPUSCULAR HGB 29.7 pG CALC (26.0-32.0); MEAN CORPUSCULAR HGB CONC 29.9 g/dL CAL (32.0-36.0); NEUT# 10.18 thou/uL (1.82-7.42); RED BLOOD COUNT 4.24 mill/uL (4.70-6.10); RED CELL DISTRI WIDTH 14.5 % (11.5-15.5)
[2021-02-08 10:45] LABS: CREATININE 1.9 mg/dL (0.7-1.3); POTASSIUM 3.4 mmol/l (3.5-5.1)
--- NOTE | 2021-02-08 11:52 | NUR ---
S- pt able ti give name and birthdate. 0- contacted nursing prior to treatment. Pt was awake in supine, continued to be difficult to understand. PROM to R extremities and A/AAROM to L extremities. Pt sitting in brown soft stool (not formed) and was clean up. Rolling towards R with max assist and total assist towards L. Total assist to sit over edge and bed. Sitting maintained x approx 60 sec with mod max assist to maintain, pt pushes with LUE. Total assist back to supine, pt moved up and bed and positioned appropriately with R arm on pillow, call cespedes in reach. Pt left watching TV. 02sats 97 to 98%, HR 71 to 74 BP 100/60, pt denied dizziness in sitting. 0- Pt mobility limited and overall weak. [facility] ECF. P- Will follow.
--- NOTE | 2021-02-08 12:34 | NUR ---
MORE AWAKE AND ALERT NOW, TALKING TO SON NOW BUT WITH GARBLED UNCLEAR SPEECH, ALL NEEDS ANTICIPATED AND ADDRESSED.
--- NOTE | 2021-02-08 14:53 | NUR ---
Addendum: pt will required heavy duty w/c with leg rest, a sonu lift, hospital bed and Home health f/u.
--- NOTE | 2021-02-08 16:00 | NUR ---
ALERT, GARBLED SPEECH, RESPONDS TO COMMANDS, MOVES RUE A THIS TIME, ALL NEEDS MET, NEW ORDERS EXECUTED, WILL CONTINUE TO MONITOR.
--- NOTE | 2021-02-08 21:40 | NUR ---
PT RESTING IN BED YELLING OUT, PT SPEECH VERY GARBLED. ATTEMPTED TO DISCUSS POC PT NEEDS REINFORMCENT DUE TO BARRIERS, HX OF STROKE R SIDED WEAKER THAN LEFT, PT ABLE TO OBEY COMMANDS. POST DRAINING TO GRAVITY, PT ON AN AIR MATTRESS. O2 4L NC, ASSESSMENT COMPLETED, MEDICATED PER MAR, CALL LIGHT IN REACH,CONTINUE TO MONITOR.
--- NOTE | 2021-02-09 | NUR ---
PT RESTING IN BED, RECEIVING NEB TX, NO SIGNS OF DISTRESS NOTED, RESP EVEN AND UNLABORED. CALL LIGHT IN REACH,CONTINUE TO MONITOR.
[2021-02-09 03:45] VITALS: BP 123/81
--- NOTE | 2021-02-09 04:45 | NUR ---
PT RESTING IN BED, NO SIGNS OF DISTRESS NOTED, RESP EVEN AND UNLABORED. VOICES NO NEEDS OR COMPLAINTS AT THIS TIME, CALL LIGHT IN REACH,CONTINUE TO MONITOR.
[2021-02-09 05:12] LABS: HEMATOCRIT 38.9 % (39.0-50.0); HEMOGLOBIN 11.6 g/dl (14.0-18.0); MEAN CELL VOLUME 99.5 fL CALC (80.0-100.0); MEAN CORPUSCULAR HGB 29.7 pG CALC (26.0-32.0); MEAN CORPUSCULAR HGB CONC 29.8 g/dL CAL (32.0-36.0); RED BLOOD COUNT 3.91 mill/uL (4.70-6.10); RED CELL DISTRI WIDTH 14.6 % (11.5-15.5)
[2021-02-09 05:32] LABS: CREATININE 1.8 mg/dL (0.7-1.3); MAGNESIUM 2.1 mg/dL (1.6-2.3); POTASSIUM 3.5 mmol/l (3.5-5.1)
[2021-02-09 07:22] VITALS: BP 113/64
--- NOTE | 2021-02-09 08:09 | NUR ---
SHIFT CHANGE REPORT, PT AWAKE AND ALERT, TALKATIVE AND CALLING OUT LOUDLY, SPEECH GARBLED AND UNCLEAR, REPOSITIONED AND GIVEN BED BATH, O2 @ 4L VIA NC IN PLACE, TELE MONITOR IN PLACE, POST CATHETER IN PLACE WIT KRIS URINE, CALL LOPEZ IN REACH AND BED LOCKED IN LOWEST POSITION.
--- NOTE | 2021-02-09 10:34 | NUR ---
S- pt yelling out, able to give name and birthdate. 0- Pt seen PROM to R extremities, and A/AAROM to l extremities. Pt was able to squeeze hand on R weakly and performed several reps of act elbow flexion. Rolling side to side required max/total to L and mod/max towards R. Pt BP 131/66, HR 105, and 02 sats initially 88 but pt had 02 off, on 02 95% Time spent with pt 40 min. A- pt with decreased mobility and strength. [facility] 10 ECF. p- will follow.
[2021-02-09 11:23] VITALS: BP 103/49
--- NOTE | 2021-02-09 12:00 | NUR ---
WATCHING TV, ALL NEEDS MET, REPOSITIONED IN BED.
[2021-02-09 14:43] VITALS: BP 113/53
--- NOTE | 2021-02-09 16:00 | NUR ---
RESTLESS AT THIS TIME CALLING OUT LOUDLY BUT STAFF UNABLE TO INTERPRET NEEDS, REPOSITIONED IN BED, CALL LOPEZ IN REACH.
--- NOTE | 2021-02-09 18:56 | NUR ---
REPORT RECEIVED FROM Makenzie MAYA RN
[2021-02-09 19:00] VITALS: BP 134/70
[2021-02-10] VITALS (7 sets, daily range): BP systolic 108–131; BP diastolic 63–76
[2021-02-10 05:23] LABS: HEMATOCRIT 37.5 % (39.0-50.0); HEMOGLOBIN 11.5 g/dl (14.0-18.0); MEAN CELL VOLUME 96.4 fL CALC (80.0-100.0); MEAN CORPUSCULAR HGB 29.6 pG CALC (26.0-32.0); MEAN CORPUSCULAR HGB CONC 30.7 g/dL CAL (32.0-36.0); RED BLOOD COUNT 3.89 mill/uL (4.70-6.10); RED CELL DISTRI WIDTH 14.6 % (11.5-15.5)
[2021-02-10 05:49] LABS: ANION GAP 8 (6-22 (CALC)); BUN 49 mg/dL (8-23); BUN/CREATININE RATIO 35 (12-20 (CALC)); CARBON DIOXIDE 32 mmol/l (22-30); CHLORIDE 110 mmol/l (95-108); CREATININE 1.4 mg/dL (0.7-1.3); GFR 50 ML/MIN (>=60 (CALC)); GFR FOR AFR.AMER. > 60 ML/MIN (>=60 (CALC)); POTASSIUM 3.6 mmol/l (3.5-5.1); SODIUM 146 mmol/l (137-146)
--- NOTE | 2021-02-10 06:18 | NUR ---
PATIENT REQUESTING WATER AT THIS TIME. WATER PROVIDED PER PATIENT REQUEST. PT SITTING RESTING ON BEDSIDE COMMODE. CALL LIGHT AND BEDSIDE TABLE WITHIN REACH.
--- NOTE | 2021-02-10 06:26 | NUR ---
PATIENT RESTING COMOFRTABLY, NO DISTRESS NOTED AT THIS TIME. CALL LIGHT AND BEDSIDE [place] REACH
--- NOTE | 2021-02-10 09:21 | NUR ---
PT AT BEDSIDE WITH PT.
--- NOTE | 2021-02-10 10:09 | NUR ---
S- pt moaning at times but not able to understand him. 0- Pt resting in bed, sleeping, woke to physical stimuli. PROM to R extremities and AAROM to l extremities 20 reps. Pt required max assist to roll on R side and total to L. Dickson sling placed and assisted by 2 MANAGER REIMBURSEMENT to transfer pt into BS chair. BP 136/64 supine, in chair 114/63 initially then 117/56 pt denied dizziness. HR 99 to 98, 02sats 97 to 88% with initially sitting with recovery to 95% [address] place. Pt left in chair with call cespedes in lap and bedside tray in reach. Nursing aware, Time spent with pt 55 min. 0- Mobility very limited. [facility] 9 ECF P- will follow.
--- NOTE | 2021-02-10 14:12 | NUR ---
Assist MILLING MACHINE OPERATOR GEAR to return pt back to bed with sonu lift. Pt resting in bed properly positioned with call cespedes and bedside table in reach.
--- NOTE | 2021-02-10 19:30 | NUR ---
PATIENT ALERT. GARBLED SPEECH. ASSESSMENT COMPLETE. RIGHT SIDED WEAKNESS. NO SIGNS OF DISTRESS NOTED. FLUSHED #20 IV SITE TO LEFT HAND. CALL LIGHT AND BELONGINGS REMAIN IN REACH.
--- NOTE | 2021-02-11 00:47 | NUR ---
PRN ATIVAN GIVEN PER ORDER FOR INCREASED AGITATION AND YELLING.
--- NOTE | 2021-02-11 03:45 | NUR ---
RESTING IN BED RANDOMLY YELLING OUT. OBSERVED PULLING OFF OXYGEN TUBING. REAPPLIED BUT PATIENT REMOVED AGAIN. NO DISTRESS NOTED. NO COMPLAINTS OF PAIN OBSERVED. CALL LIGHT AND BELONGINGS REMAIN IN REACH.
[2021-02-11 04:00] VITALS: BP 119/69
--- NOTE | 2021-02-11 08:00 | NUR ---
PT WATCHING TV UPON ENTERING ROOM. PT IS ALERT TO PERSON. SPEECH IS GARBLED BUR CAN NOD YES AND NO QUESTIONS. ASSESSMENT ALLOWED AT THIS TIME. LUNG SOUNDS ARE DIMIMISHED IN UPPER AND LOWER LOBES POSTERIORLY, CLEAR IN Rul and DARIEL. BREATHING PATTERN IS SHALLOW. HEART SOUNDS ARE IRREGULAR, TELE MONITOR IN PLACE. SHOWING AFIB 81, CONTINOUS MONITORING BY ED. BOWEL SOUNDS HEARD X4, SLIGHT EDEMA ON FEET BILATERALLY, TRACE. ACCUCHECK THIS MORNING 148 NO COVERAGE NEEDED PER SLIDING SCALE. O2 AT 3L NS WITH SPO2 IN 96%. PT IS ON THICKEN HONEY LIQUIDS. CALL LIGHT WITHIN REACH.
--- NOTE | 2021-02-11 10:58 | NUR ---
PT RIPPED OFF IV. IV WAS LOCATED 20G RH UNABLE TO SUCCESULLY PUT IV. CONTACTED ER FOR CHECO.
[2021-02-11 11:05] VITALS: BP 126/81
--- NOTE | 2021-02-11 11:10 | NUR ---
ENDY KESSLER AT [facility] IV FOR PT.
--- NOTE | 2021-02-11 11:36 | NUR ---
ENDY KESSLER UNSUCCESFUL TO ESTABLISH IV. AL BARRETO AND DR. MEDINA NOTIFIED. THEY WILL CHANGE MEDICATION ORDERS TO PO.
--- NOTE | 2021-02-11 11:52 | NUR ---
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 Pt was initially irritated secondary to nursing trying to start IV. 0- Pt semi reclined leading towards L, [address] PROM done to L extremities and AAROM to R extremities. Bilateral DF to approx 0 degrees. Pt moved up in bed and positioned appropriately. Pt total assist to move up in bed, rolling to L and max to R. Time spent with pt 25 min. LEAD C DEVELOPER in to give pt his lunch. A- AMPAC unchanged, ECF P- will follow.
--- NOTE | 2021-02-11 11:58 | NUR ---
Addendum: BP 110/78, 94% 02 sats and HR 92.
--- NOTE | 2021-02-11 12:00 | NUR ---
PT EATING LUNCH AT THIS TIME. STILL AGITATED DUE TO IV ATTEMPTS BUT NO YELLING. OFFERED PUDDING SNACK PT ABLE TO SWALLOW PUDDINF W/O DIFFICULTY. TELE MONITOR IN PLACE, CONTINOUS MONITORING BY ED. BED ALARM IN PLACE, FALL PRECUATION IS PLACE. O2 AT 2L NASAL CANNULA. NARES SKIN AREA INTACT SHOWING NO SKIN REDDNESS. PICTURE ABOVE BED ON WALL. CALL LIGHT WITHIN REACH.
[2021-02-11 14:44] VITALS: BP 124/72
--- NOTE | 2021-02-11 16:00 | NUR ---
PT WATCHING TV AT THIS TIME, OFFERED HONEY THICKEN FLUIDS MIXED WITH WATER. O2 AT 2L NS IN PLACE SPO2 SHOWING 95. BED ALARM ON. FALL PRECUATIONS IN PLACE. TELE MONITOR IN PLACE, CONTINOUS MONITORING BY ED. NO IV SITE. CALL LIGHT WITHIN REACH AND PHOTO STILL ABOVE BEDSIDE. PT IS NOT AGITATED AT THIS TIME.
[2021-02-11 19:15] VITALS: BP 132/62
--- NOTE | 2021-02-11 19:30 | NUR ---
PATIENT RESTING IN BED. ALERT. GARBLED VOICE. NO SHOUTING OUT AT THIS TIME. ASSESSMENT COMPLETE. NO SIGNS OF DISTRESS NOTED. NO COMPLAINTS OF PAIN. CALL LIGHT AND BELONGINGS WITHIN REACH.
--- NOTE | 2021-02-11 23:45 | NUR ---
PATIENT RESTING IN BED QUIETLY WITH EYES CLOSED. NO SIGNS OF PAIN OR DISTRESS NOTED. CALL LIGHT AND BELONGINGS REMAIN WITHIN REACH.
[2021-02-11 23:50] VITALS: BP 127/68
[2021-02-12] VITALS (8 sets, daily range): BP systolic 116–132; BP diastolic 64–84
--- NOTE | 2021-02-12 02:00 | NUR ---
PATIENT RESTING IN BED QUIETLY. NO SIGNS OF DISTRESS NOTED. CALL LIGHT REMAINS IN REACH. WILL CONTINUE TO MONITOR.
--- NOTE | 2021-02-12 03:50 | NUR ---
RESTING IN BED WITH EYES SHUT. NO SIGNS OF DISTRESS NOTED. CALL LIGHT REMAINS IN REACH.
[2021-02-12 05:02] LABS: HEMATOCRIT 37.2 % (39.0-50.0); HEMOGLOBIN 11.3 g/dl (14.0-18.0); MEAN CELL VOLUME 98.7 fL CALC (80.0-100.0); MEAN CORPUSCULAR HGB CONC 30.4 g/dL CAL (32.0-36.0); RED BLOOD COUNT 3.77 mill/uL (4.70-6.10); RED CELL DISTRI WIDTH 14.7 % (11.5-15.5)
[2021-02-12 05:40] LABS: ANION GAP 9 (6-22 (CALC)); BUN 33 mg/dL (8-23); BUN/CREATININE RATIO 25 (12-20 (CALC)); CARBON DIOXIDE 32 mmol/l (22-30); CHLORIDE 108 mmol/l (95-108); CREATININE 1.3 mg/dL (0.7-1.3); GFR 55 ML/MIN (>=60 (CALC)); GFR FOR AFR.AMER. > 60 ML/MIN (>=60 (CALC)); MAGNESIUM 1.9 mg/dL (1.6-2.3); POTASSIUM 3.4 mmol/l (3.5-5.1); SODIUM 145 mmol/l (137-146)
--- NOTE | 2021-02-12 07:00 | NUR ---
SHIFT CHANGE REPORT, PT SLEEPING BUT AROUSES TO TACTILE STIMULI, O2 @ 3L VIA NC IN PLACE, TELE MONITOR IN PLACE, REPOSITIONED IN BED AND SET UP FOR MEAL, POST IN PLACE WITH KRIS URINE, CALL LOPEZ IN REACH AND BED LOCKED IN LOWEST POSITION.
--- NOTE | 2021-02-12 12:00 | NUR ---
RESTING IN BED, APEARS COFORTABLE, ALL NEEDS ADDRESSED.
--- NOTE | 2021-02-12 13:38 | NUR ---
Physical therapist attempted to wake patient up and have him participate with PT intervention, but patient was sound asleep. Physical therapist later attempted to wake him up again 1 hour after lunch, but patient continues to be sound asleep.
--- NOTE | 2021-02-12 16:00 | NUR ---
SLEEPING, BREATHING EVEN AND NON-LABORED, CALL LOPEZ IN REACH
--- NOTE | 2021-02-12 20:12 | NUR ---
PHYSICAL ASSESMENT COMPLETE. PT CURRENTLY DENIES PAIN OR DISCOMFORT. SCHEDULED MEDICATIONS AND PRN MEDICATION ADMINISTERED, SEE E-MAR. PT DENIES ANY NEEDS AT THIS TIME. PLAN OF CARE REVIEWED, PT DENIES QUESTIONS, NODS UNDERSTANDING. ITEMS WITHIN REACH, BED LOCKED IN LOW POSITION W/ BEDRAILS UP X2. CALL LOPEZ WITHIN REACH, AGREES TO CALL PRN.
--- NOTE | 2021-02-13 04:06 | NUR ---
PT RESTING IN BED, NO SIGNS OF DISTRESS NOTED, RESP EVEN AND UNLABORED. CATHETER SECURE AND DRAINING TO GRAVITY. CALL LIGHT IN REACH, CONTINUE TO MONITOR.
--- NOTE | 2021-02-13 04:33 | NUR ---
PATIENT RESTING IN BED AT THIS TIME WITH O2 VIA NASAL CANNULA IN PLACE. AWAKE ALERT AND C/O ABD CRAMPING. LEFT ABD OSTOMY DRAINED FOR 150CC OF LIQUID BROWN STOOL-OSTOMY APPLIANCE REMAINS INTACT AT THIS TIME. LAB WORK DRAWN FROM LEFT CHEST TLC WITH GOOD BLOOD RETURN-FLUSHED PER PROTOCOL WITH SALINE. WILL MEDICATED PATIENT ORDERED FOR PAIN. CALL LIGHT IN REACH. WILL CONT TO MONITOR.
[2021-02-13 04:39] VITALS: BP 116/77
[2021-02-13 07:00] VITALS: BP 118/72
--- NOTE | 2021-02-13 07:00 | NUR ---
PATIENT RESTING IN BED AT THIS TIME AT THIS TIME. 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 LUNG BRODY ARE DIMINISHED AT THIS TIME. RT SIDED WEAKNESS FROM PREVIOUS STROKE AND BILATERAL EDEMA 1+ TO 2+ NOTED AT THIS TIME. COCCYX AREA PINK AT THIS TIME. PATIENT UP ON SIDE AT THIS TIME. NO IV IS PLACED AND PHYSCIAN IS AWARE.
--- NOTE | 2021-02-13 11:46 | NUR ---
PATIENT RESTING UP ON RIGHT SIDE AT THIS TIME EYES CLOSED AND RESPIRATIONS EASY AND UNLABORED AT THIS TIME. POST PATENT AND DRAINING KRIS URINE TELE MONITOR REMAINS IN PLACE AND SIDERAILS ARE UP X 2 AND CALL LIGHT WITHIN REACH.
[2021-02-13 12:00] VITALS: BP 123/65
--- NOTE | 2021-02-13 15:21 | NUR ---
PATIENT RESTING IN BED AT THIS TIME WITH EYES CLOSED. RESPIRATIONS EASY AND UNLABORED AT THIS TIME. TELE MONITOR IN PLACE AND POST PATENT AND DRAINING KRIS COLOR URINE AT THIS TIME. SIDERAILS ARE UP CALL LIGHT IS WITHIN REACH. WILL CONTINUE TO MONITOR. TELE ON AND BEING MONITORED BY ED.
[2021-02-13 16:38] VITALS: BP 122/63
[2021-02-13 19:00] VITALS: BP 139/74
--- NOTE | 2021-02-13 19:25 | NUR ---
PATIENT RESTING IN BED QUIETLY. NO SIGNS OF PAIN OR DISTRESS. ALERT. ASSESSMENT COMPLETE. BED IN LOW POSITION. CALL LIGHT IN REACH.
[2021-02-14] VITALS: BP 127/81
--- NOTE | 2021-02-14 | NUR ---
RESTING IN BED QUIETLY. NO DISTRESS NOTED. YELLS OUT AT TIMES. REDIRECTED. NO SIGNS OF PAIN NOTED. CALL LIGHT AND BELONGINGS REMAIN IN REACH.
--- NOTE | 2021-02-14 03:45 | NUR ---
RESTING IN BED IN SEMI FOWLERS POSITION WITH EYES CLOSED. NO SIGNS OF PAIN OR DISTRESS NOTED. CALL LIGHT AND BELONGINGS REMAIN IN REACH.
[2021-02-14 04:00] VITALS: BP 139/72
--- NOTE | 2021-02-14 07:00 | NUR ---
SHIFT CHANGE REPORT, PT SLEEPING BUT AROUSES TO VERBAL AND TACTILE STIMULI, BREATHING EVEN AND NON-LABORED ON O2 @ 3L VIA NC, TELE MONITOR IN PLACE, POST IN PLACE DRAINING CLEAR KRIS URINE, CALL LOPEZ IN REACH AND BED LOCKED IN LOWEST POSITION.
[2021-02-14 07:29] VITALS: BP 125/84
[2021-02-14 11:26] VITALS: BP 142/78
--- NOTE | 2021-02-14 12:00 | NUR ---
ASISTED WITH FEED SET-UP BUT REFUSING TO EAT, HE DOES TAKE IN LIQUIDS, ALL NEDS ADDRESSED, CALL LOPEZ IN REACH.
[2021-02-14 15:00] VITALS: BP 135/81
--- NOTE | 2021-02-14 16:00 | NUR ---
SLEEPING AT THIS TIME, O2 @ 3L IN PLACE, BREATHING EVEN AND NON-LABORED, CALL LOPEZ IN REACH.
[2021-02-14 18:50] VITALS: BP 128/74
--- NOTE | 2021-02-14 19:53 | NUR ---
FOUND PATIENT RESTING IN BED AWAKE, WATCHING TV, CONTACT PRECAUTIOS CONTINUE, ALERT AND ORIENTED TO X3, DISORIENTED TO TIME, SPEECH IS UNCLEAR HARD TO UNDERSTAND, HX OF STROKE PER MEDICAL HX AND REPORT. NO PAIN REPORTED AT THIS TIME, SCD'S ON, AIR MATTRESS IN PLACE, CALL LOPEZ AT REACH, WILL FOLLOW UP WITH HOURLY ROUNDING.
[2021-02-15] VITALS (8 sets, daily range): BP systolic 101–150; BP diastolic 60–86
--- NOTE | 2021-02-15 01:08 | NUR ---
PATIENT IS YELLING AND SCREAMING LOUD, REPOSITIONED FOR COMFORT WITH ASSISTANCE X4 PEOPLE.
--- NOTE | 2021-02-15 01:33 | NUR ---
POST CARE PROVIED, AND PERINEAL CARE GIVEN, REPOSITIONED FOR COMFORT, CLEAN BED LINENS PROVIDED. WILL FOLLOW UP CLOSELY, CALL LOPEZ AT REACH. PATIENT IS MORE CALM NOW, NOT YELLING OR SCREAMING ANYMORE.
--- NOTE | 2021-02-15 03:56 | NUR ---
PATIENT IS RESTING IN BED WITH EYES CLOSED, CALM, VOICES NO COMPLAINTS AT THIS TIME, CALL LOPEZ AT REACH, WILL FOLLOW UP WITH FREQUENTLY ROUNDINGS. PATIENT IS TOTAL CARE.
--- NOTE | 2021-02-15 06:21 | NUR ---
PATIENT IS RESTING IN BED, AWAKE, CALM, C/O FEELING COLD, WARM BLANKET PROVIDED, NO OTHER NEEDS NOTED.
--- NOTE | 2021-02-15 07:30 | NUR ---
RECIEVED REPORT FROM ALISIA ESTRADA
--- NOTE | 2021-02-15 07:31 | NUR ---
REPORT GIVEN TO DAYSHIFT NURSE, PATIENT IS STABLE.
--- NOTE | 2021-02-15 09:17 | NUR ---
PT RESTING IN RECLYINER. PT IS A/O X2. SPECH GARBLED FROM PREVIOUS STROKE, RIGHT SIDED WEAKNESS NOTED. ASSESSMENT AND VITALS COMPLETED. BP 139/86, HR 111, O2 97% ON 3L NC. RESPIRATIONS ARE SHALLOW, WET COUGH NOTED. LUNG SOUNDS ARE DIMINISHED. BOWEL SOUNDS ARE ACTIVE. HEART RHYTHM NORMAL WITH TELE IN PLACE, AFIB PER ER MONITORING. PEDAL PULSES WEAK. NO IV SITE, MD AWARE. POST CATH IN PLACE, DARK KRIS/BLOOD TINGED URINE NOTED. PT INSTRUCTED NOT TO PULL ON CATH. VERBALIZED UNDERSTANDING. PT COMPLAINS OF 8/10 GENERAILZED PAIN, PT MEDICATED WITH TYLENOL. PT DENIES OF ANY ADDITIONAL NEEDS. ALL SAFETY PRECAUTIONS ARE IN PLACE WITH CALL LIGHT IN REACH. WILL CONTINUE TO MONITOR
--- NOTE | 2021-02-15 10:00 | NUR ---
DR MEDINA AND MARTIN,[place] AT BEDSIDE
--- NOTE | 2021-02-15 11:13 | NUR ---
S- "sore", he c/o overall soreness. 0- Pt OOB in recline. Pt seen for AROM ex to L extremities including gentle manual resistance to LUE, AROM to LLE. PROM/AAROM to R extremities, 20 reps each. PT was able to perform active reps of LAQ, min hip flexion, and DF for 1st time. Time spent with pt 30 min. 0- Pt with increase cooperation and active motion noted. [facility] 10. ECF P- will follow per POC.
--- NOTE | 2021-02-15 12:00 | NUR ---
PT RESTING IN RECYLINER WATCHING TV. RESPIRATIONS ARE EVEN AND UNLABORED ON 3L NC. TELE MONITORING IN PLACE. PT DENIES OF ANY PAINS OR DISCOMFORTS AT THIS TIME.ACCUCHECH RESULTING IN 191,COVERAGE ADMINISTERED. VERAPAMIL HELD DUE TO LOW BP. ALL SAFETY PRECAUTIONS ARE IN PLACE WITH CALL LIGHT IN REACH. WILL CONTINUE TO MONITOR
--- NOTE | 2021-02-15 15:20 | NUR ---
YAMILET COMPLETED REACHING TAs CROSSING MIDLINE TO BRING CUP TO MOUTH FOR INCREASED INDEPENDENCE WITH FEEDING. HE SELF-FED 3 SPOONFULS OF APPLESAUCE WITH S/U ASSIST TO OPEN CONTAINER. YAMILET COMPLETED AAROM WITH CONTRALATERAL SIDE TO PREVENT MAINTAIN CURRENT RANGE FOR INCREASED FUNCTIONAL MOBILITY IN AFFECTED UE.
--- NOTE | 2021-02-15 15:59 | NUR ---
PT RESTING IN RECYLINER WATCHING TV. RESPIRATIONS ARE EVEN AND UNLABORED ON 3L NC. TELE MONITORING IN PLACE. NO IV, MD AWARE. POST CATH IN PLACE, DRAINING PER GRAVITY. URINE REMAINS KRIS/BLOOD TINGED. PT DENIES OF ANY PAINS OR DISCOMFORTS. REQUEST TO CALL SON. GEOPHYSICAL OBSERVER TO ASSIST. ALL SAFETY PRECAUTIONS ARE IN PLACE WITH CALL LIGHT IN REACH. WILL CONTINUE TO MONITOR
--- NOTE | 2021-02-15 19:30 | NUR ---
PATIENT ALERT. GARBLED SPEECH. SITTING UP IN RECLINER. NO SIGNS OF DISTRESS. ASSESSMENT COMPLETE. CALL LIGHT AND BELONGINGS IN REACH.
--- NOTE | 2021-02-15 22:15 | NUR ---
FOUR LOG PREPARER, TWO NURSES, AND 3 CNAS HELPED TRANSFER PATIENT FROM RECLINER BACK TO BED. PATIENT TOLERATED WELL.
--- NOTE | 2021-02-16 00:30 | NUR ---
PATIENT RESTING IN BED. KEEPS MOVING LEFT FOOT OUT OF BED. REMAINS MESSING WITH POST CATHETER. REINSTRUCTED PATIENT TO LEAVE CATHETER ALONE. POST REMAINS WITH BLOOD TINGED URINE. PATIENT OBSERVED TAKING BLANKETS OFF. CALL LIGHT AND BELONGINGS REMAIN IN REACH.
--- NOTE | 2021-02-16 02:00 | NUR ---
PATIENT OBSERVED WITH LEGS OUT OF BED. PILLOWS ON THE FLOOR. BLANKETS MOVED. OXYGEN TUBING OBSERVED OFF WELL. REPOSITIONED PATIENTS LEGS BACK IN BED. O2 REAPPLIED. PILLOWS REPOSITIONED ON BED. REMINDED PATIENT TO LEAVE OXYGEN ON. BED IN LOW POSITION. BED ALARM ON FOR SAFETY.
--- NOTE | 2021-02-16 04:00 | NUR ---
PATIENT 0BSERVED WITH LEGS OUT OF BED, AGAIN. THICKENED WATER OBSERVED SPILT ON SIDE OF PATIENTS BED WHERE HIS RIGHT SIDE IS. OXYGEN OFF OF PATIENT. PILLOW ON FLOOR. BM NOTED. PATIENT OBSERVED GRABBING AT TELE CORDS AND BOX. PATIENT CLEANED UP. TOTAL BED LINEN CHANGE AND NEW GOWN ON. LEGS LOTIONED AND NEW SOCKS PUT ON. OXYGEN REAPPLIED. SPILL CLEANED UP. REDIRECTED PATIENT AGAIN TO REFRAIN FROM PULLING AT EVERYTHING. BED IN LOW POSITION. CALL LIGHT IN REACH. BED ALARM ON.
[2021-02-16 04:29] VITALS: BP 110/73
--- NOTE | 2021-02-16 05:19 | NUR ---
RESTING IN BED IN SEMI FOWLERS POSITION. CALL LIGHT AND BELONGINGS REMAIN IN REACH. BED ALARM REMAINS ACTIVE.
[2021-02-16 05:45] LABS: HEMATOCRIT 36.4 % (39.0-50.0); HEMOGLOBIN 11.2 g/dl (14.0-18.0); MEAN CORPUSCULAR HGB 29.6 pG CALC (26.0-32.0); MEAN CORPUSCULAR HGB CONC 30.8 g/dL CAL (32.0-36.0); RED BLOOD COUNT 3.79 mill/uL (4.70-6.10); RED CELL DISTRI WIDTH 14.8 % (11.5-15.5)
[2021-02-16 05:59] LABS: ANION GAP 6 (6-22 (CALC)); BUN 20 mg/dL (8-23); BUN/CREATININE RATIO 18 (12-20 (CALC)); CARBON DIOXIDE 33 mmol/l (22-30); CHLORIDE 105 mmol/l (95-108); CREATININE 1.1 mg/dL (0.7-1.3); GFR > 60 ML/MIN (>=60 (CALC)); GFR FOR AFR.AMER. > 60 ML/MIN (>=60 (CALC)); POTASSIUM 3.4 mmol/l (3.5-5.1); SODIUM 141 mmol/l (137-146)
--- NOTE | 2021-02-16 06:43 | NUR ---
PATIENT ALARM SOUNDING. THIS NURSE AND A RUBBER GOODS ASSEMBLER WENT TO THE ROOM. PATIENT OBSERVED SITTING ON THE FLOOR IN HIS ROOM NEXT TO HIS BED. ALERT. SMALL SKIN AREA, PINK OBSERVED TO RIGHT BAKER AREA. VS STABLE. DOCTOR CALLED AND INFORMED OF PATIENT BEING OBSERVED ON THE FLOOR. ALSO INFORMED DOCTOR OF PATIENT PULLING AT EVERYTHING ON HIM INCLUDING HIS POST. INFORMED DOCTOR OF THE POST HAVING BLOOD TINGED URINE. SEE MAR FOR UPDATED ORDERS TO BE ENTERED BY PROVIDER. HR ADVISOR ALSO AWARE.
--- NOTE | 2021-02-16 07:00 | NUR ---
SHIFT CHANGE REPORT, PT AWAKE AND ALERT HOLLERING OUT BUT DUE TO HIS EXPRESSIVE APHASIA AND GARBLED SPEECH ITS DIFFICULT TO COMMUNICATE EFFECTIVELY WITH HIM, ALL HIS NEEDS ARE ANTICIPATED AND ADDRESSED, HE WILL RESPOND APPROPRIATELY TO QUESTIONS WITH YES & NO ANSWERS. O2 @ 3L VIA NC IN PLACE, POST CATHETER IN PLACE WITH KRIS URINE AND SECURED WITH STRAP TO LEG, SCD IN PLACE, CALL LOPEZ IN REACH AND BED LOCKED IN LOWEST POSITION.
--- NOTE | 2021-02-16 07:27 | NUR ---
CALLED SON AND INFORMED HIM OF HIS DADS STATUS.
[2021-02-16 08:25] VITALS: BP 119/77
[2021-02-16 10:49] VITALS: BP 122/79
--- NOTE | 2021-02-16 12:00 | NUR ---
ASSISTED WITH REPOSITION FOR FEED AND FEED, NO NEW CHANGES, ALL NEEDS ADDRESSED.
--- NOTE | 2021-02-16 12:14 | NUR ---
SET UP FOR MEAL AT THIS TIME AFTER PHYSICAL THERAPIST EVALUATED AND TREATED, NO COMPLAINS, APPEARS COMFORTABLE NOW, WILL CONTINUE TO MONITOR.
[2021-02-16 15:35] VITALS: BP 100/53
--- NOTE | 2021-02-16 16:00 | NUR ---
RESTING QUIETLY IN BED, APPEARS COMFORTABLE, CALL LOPEZ IN REACH.
[2021-02-16 19:00] VITALS: BP 128/79
--- NOTE | 2021-02-16 19:15 | NUR ---
PATIENT ALERT WITH PERIODS OF CONFUSION. NO DISTRESS OR SIGNS OF PAIN NOTED AT THIS TIME. ASSESSMENT COMPLETE. PATIENT STILL REMAINS PULLING AT CATHETER. REDIRECTED NEEDED. BED REMAINS IN LOW POSITION. BED ALARM REMAINS ON. CALL LIGHT WITHIN PATIENT REACH.
[2021-02-17] VITALS: BP 125/75
--- NOTE | 2021-02-17 00:10 | NUR ---
RESTING IN BED QUIETLY. NO SIGNS OF PAIN OR DISTRESS NOTED. CALL LIGHT WITHIN REACH. BED ALARM REMAINS ACTIVE.
[2021-02-17 04:00] VITALS: BP 112/78
--- NOTE | 2021-02-17 04:10 | NUR ---
PATIENT REMAINS RESTING IN BED QUIETLY. NO COMPLAINTS OF PAIN VOICED. NO SIGNS OF DISTRESS NOTED. CALL LIIGHT AND BELONGINGS REMAIN IN PATIENTS REACH.
[2021-02-17 07:31] VITALS: BP 110/71
--- NOTE | 2021-02-17 07:46 | NUR ---
PT SLEEPING UPON ENTERING ROOM. DENIES LUIS E PAIN AT THIS TIME. ASSESSMENT AND VITALS ALLOWED AT THIS TIME. LUNG CLEAR IN UPPER/LOWER LOBES. BREATHING IS EVEN AND UNLABORED. TELE MONITOR IN PLACE. TELE# [id number] CONTINOUS MONITORING PER ED. O2 AT 2L NASAL CANNULA/ HUMIDIFIED. HEART SOUNS IRREGULAR. BOWEL SOUNDS HEARD X4. POST IN PLACE DRAINING VIA GRAVITY SHOWING DARK KRIS URINE. CALL LIGHT WITHIN REACH. PT REMIANS IN CONTACT ISOLATION.
[2021-02-17 10:47] VITALS: BP 114/66
--- NOTE | 2021-02-17 11:56 | NUR ---
S- pt able to stated name, birthday and that he is in hospital/[place]. 0- Pt resting in bed in upright position. A/AAROM to L extremities and AROM/manual resistance to R extremities, x20 reps each. Rolling to R side with mod/max assist and max to L side. Pt unable to assist in moving up in bed. BP 110/71 HR 84-94, 02 sats 95%. Pt in bed, call cespedes in reach, watching TV. A- Pt with decrease strenght and mobility [facility] 8 P- will follow.
[2021-02-17 12:28] LABS: HEMATOCRIT 37.6 % (39.0-50.0); HEMOGLOBIN 11.4 g/dl (14.0-18.0)
[2021-02-17 14:15] VITALS: BP 140/76
--- NOTE | 2021-02-17 15:51 | NUR ---
PT SLEEPING IN ROOM. NO DISTRESS NOTED. BREATHING IS EVEN AND UNLABORED. FALL PRECAUTIONS IN PLACE. BED ALARM IS ON. CALL LIGHT WITHIN REACH
[2021-02-17 18:52] VITALS: BP 120/84
--- NOTE | 2021-02-17 20:20 | NUR ---
PT RESTING IN BED, NO SIGNS OF DISTRESS NOTED, RESP EVEN AND UNLABORED 02 2L NC, PT IS ON AN AIRMATTRESS FOR COMFORT, SCD'S REMOVED PER PT REQUEST, POST DRAINING KRIS URINE TO GRAVITY. PT IS ABLE TO FOLLOW COMMANDS, GRASP WEAK TO R ARM, UNABLE TO MOVE EXTREMITY, ELEVATED ON PILLOW DUE TO EDEMA. ABD DISTENDED SOFT, BS X4. PT MEDICATED PER APR, ASSESSMENT COMPLETED, BED ALARM FOR SAFETY, CALL LIGHT IN REACH,CONTINUE TO MONITOR.
--- NOTE | 2021-02-17 23:29 | NUR ---
PT RESTING IN BED WITH EYES CLOSED, NO SIGNS OF DISTRESS NOTED, RESP EVEN AND UNLABORED. BED ALARM FOR SAFETY, CALL LIGHT IN REACH,CONTINUE TO MONITOR.
[2021-02-18 00:05] VITALS: BP 103/66
[2021-02-18 04:26] VITALS: BP 120/61
--- NOTE | 2021-02-18 05:06 | NUR ---
PT RESTING IN BED WITH EYES CLOSED, NO SIGNS OF DISTRESS NOTED, RESP EVEN AND UNLABORED. BED ALARM FOR SAFETY, CALL LIGHT IN REACH,CONTINUE TO MONITOR.
[2021-02-18 07:27] VITALS: BP 124/64
--- NOTE | 2021-02-18 07:29 | NUR ---
PT ASLEEP UPON ENTERING ROOM, BREATHING EVEN AND UNLABORED. POST CATHETER IN PLACE DRAINING VIA GRAVITY. SHOWING KRIS URINE. SKIN AROUND AREA INTACT. UPON AWAKENING PT ABLE TO TAKE MEDICATIONS WELL WITH HONEY THICKEN LIQUID. O2 IN PLACE @2L NC. PT HAS NO IV. STATES NO PAIN. PT IS MORE ALERT. LUNG SOUNDS ARE DIMISHED UPPER/LOWER LOBES. HEART SOUNDS ARE IRREGLUAR. TELE MONITOR IN PLACE CONTINOUS MONITORING BY ED. BOWEL SOUNDS ACTIVE X4. BED ALARM ACTIVATED. FALL PRECAUTIONS IN PLACE. CALL LIGHT WITHIN REACH.
--- NOTE | 2021-02-18 10:23 | NUR ---
AND AL BARRETO AT BEDSIDE DISCUSSING POC.
[2021-02-18 11:00] VITALS: BP 120/62
--- NOTE | 2021-02-18 11:22 | NUR ---
REMOVED POST CATHETER. CATHETER ALL INTACT. PT TOLERATED WELL. STATES NO PAIN. TELE MONITOR IN PLACE. BED ALARM ON. FALL PRECAUTIONS ARE IN PLACE. PT IS ALERT TO PERSON/PLACE. NO IV. O2 AND 2L NC. CALL LIGHT WITHIN REACH
--- NOTE | 2021-02-18 11:57 | NUR ---
S- pt moaning, not answering questions much. 0- Pt seen for PROM/AAROM to all extremities. He was not cooperative with treatment, eyes closed, not trying to help. He refused to sit up over edge of bed. 02 sats 98%, HR 68, BP 134/84. Time spent with pt 20 min. A- [facility] changes [facility]. P- Will follow per POC.
[2021-02-18 14:30] VITALS: BP 139/66
--- NOTE | 2021-02-18 15:47 | NUR ---
PT SLEEPING IN ROOM AT THIS TIME. BREATHING IS EVEN AND UNLABORED. POST WAS REMOVED EARLIER. TELE MONITOR IN PLACE, CONTINOUS MONITORING BY ED. BED ALARM ON. FALL PRECAUTIONS. O2 @ 2L NC. NO DISTRESS NOTED. CALL LIGHT WITHIN REACH.
[2021-02-18 19:00] VITALS: BP 114/66
--- NOTE | 2021-02-18 19:10 | NUR ---
PT RESTING IN BED, NO SIGNS OF DISTRESS NOTED, RESP EVEN AND UNLABORED. PT ALERT AND ORIENTED X2 WATCHING TV, PT ABLE TO FOLLOW COMMANDS, DISCUSSED NEED FOR URINE SAMPLE URINAL PLACED FOR UA. PT SPEECH CONTINUES TO BE GARBLED BUT INTELLIGIBLE, DENIES ANY NEEDS OR COMPLAINTS AT THIS TIME. 02 2L NC, ELEVATED R ARM DUE TO EDEMA, PT ABLE TO GRASP FINGERS BUT NOT ABLE TO LIFT ARM. SCD'S IN PLACE. PT ON AN AIR MATTRESS, BED ALARM FOR SAFETY, CALL LIGHT IN REACH,CONTINUE TO MONITOR.
--- NOTE | 2021-02-18 20:40 | NUR ---
PT RESPOSITIONED IN BED, MEDICATED PER MAR, NO SIGNS OF DISTRESS NOTED, RESP EVEN AND UNLABORED. CALL LIGHT IN REACH,CONTINUE TO MONITOR.
--- NOTE | 2021-02-18 23:39 | NUR ---
PT RESTING IN BED, VITALS OBTAINED,NO SIGNS OF DISTRESS NOTED, RESP EVEN AND UNLABORED. CALL LIGHT IN REACH,CONTINUE TO MONITOR.
[2021-02-19] VITALS: BP 109/58
[2021-02-19 04:00] VITALS: BP 103/57
--- NOTE | 2021-02-19 04:00 | NUR ---
PT RESPOSITIONED IN BED, NO SIGNS OF DISTRESS NOTED, RESP EVEN AND UNLABORED. CALL LIGHT IN REACH, BED ALARM FOR SAFETY, CONTINUE TO MONITOR.
--- NOTE | 2021-02-19 04:54 | NUR ---
PT HAD NOT VOIDED, BLADDER SCANNED 405ML, REPLACER NOTIFED AND ORDER RECEIVED TO REPLACE POST CATHETER, DISCUSSED WITH PT AND HE AGREED. NOTED PT HAD A BM, PERICARE PROVIDED, LINENS CHANGED AND #16F POST CATHETER INSERTED VIA ASEPTIC TECHNIQUE, PT TOLERATED WELL, CATHETER INSERTED WITHOUT DIFFICULTY. 500ML OF CLEAR KRIS URINE,SPECIMEN SAMPLE SENT TO THE LAB. CALL LIGHT IN REACH, BED ALARM FOR SAFETY, CONTINUE TO MONITOR.
[2021-02-19 05:25] LABS: URINE BILIRUBIN - DIPSTICK NEGATIVE (NEGATIVE); URINE BLOOD DIPSTICK NEGATIVE (NEGATIVE); URINE COLOR YELLOW; URINE GLUCOSE - DIPSTICK NEGATIVE (NEGATIVE); URINE KETONE NEGATIVE (NEGATIVE); URINE LEUK ESTERASE NEGATIVE (NEGATIVE); URINE NITRITE - DIPSTICK NEGATIVE (Negative); URINE PROTEIN - DIPSTICK NEGATIVE (NEG-TRACE); URINE UROBILINOGEN - DIPSTICK 0.2 E.U./dL (0.2)
[2021-02-19 05:28] LABS: HEMATOCRIT 36.2 % (39.0-50.0); HEMOGLOBIN 10.9 g/dl (14.0-18.0); MEAN CELL VOLUME 99.7 fL CALC (80.0-100.0); MEAN CORPUSCULAR HGB CONC 30.1 g/dL CAL (32.0-36.0); RED BLOOD COUNT 3.63 mill/uL (4.70-6.10); RED CELL DISTRI WIDTH 15.3 % (11.5-15.5)
[2021-02-19 05:38] LABS: ANION GAP 5 (6-22 (CALC)); BUN 17 mg/dL (8-23); BUN/CREATININE RATIO 17 (12-20 (CALC)); CARBON DIOXIDE 32 mmol/l (22-30); CHLORIDE 103 mmol/l (95-108); GFR > 60 ML/MIN (>=60 (CALC)); GFR FOR AFR.AMER. > 60 ML/MIN (>=60 (CALC)); POTASSIUM 3.5 mmol/l (3.5-5.1); SODIUM 136 mmol/l (137-146)
--- NOTE | 2021-02-19 06:09 | NUR ---
PT RESTING IN BED WITH EYES CLOSED, NO SIGNS OF DISTRESS NOTED, RESP EVEN AND UNLABORED. CALL LIGHT IN REACH,CONTINUE TO MONITOR.
[2021-02-19 07:21] VITALS: BP 132/68
--- NOTE | 2021-02-19 07:22 | NUR ---
PT RESTING IN BED UPON ENTERING ROOM. POST BACK IN PLACE DRAINING VIA GRAVITY SHOWING KRIS URINE SKIN AROUND GENITAL INTACT. ASSESSMENT AND VITALS ALLOWED AT THIS TIME. BREATHING IS EVEN AND UNLABORED. LUNG SOUNDS ARE DIMIMISHED UPPER/LOWER R&L LOBES ANTERIORLY AND POSTERIORLY. O2 @2L NC IN PLACE. SKIN AROUND NARES AREA IS INTACT. HEART SOUNDS ARE IRREGULAR. TELE MONITOR IN PLACE, CONTINOUS MONITORING BY ED. REFUSES SCDS AT THIS TIME. PT IS MORE ALERT ORIENATTED TO PERSON AND PLACE. ACCUCHECK THIS MORNING 152 WILL ADMINISTER PER INSULIN SLIDING SCALE. STATES NO PAIN AT THIS TIME. BED ALARM ACIVITATED. FALL PRECAUTIONS IN PLACE. ENCOURAGED PT TO USE CALLLIGHT. CALL LIGHT WITHIN REACH.
--- NOTE | 2021-02-19 08:43 | NUR ---
DR. SWARTZ AND AL AT BEDSIDE DISCUSSING POC
[2021-02-19 10:44] VITALS: BP 133/64
--- NOTE | 2021-02-19 12:00 | NUR ---
PT AWAKE WATCHING TV AT THIS TIME. POST IN PLACE DRAINING VIA GRAVITY SHOWING KRIS URINE. BED ALARM ON. STATES NO PAIN AT THIS TIME. FALL PRECAUTIONS IN PLACE. CALL LIGHT WITHIN REACH.
[2021-02-19 16:17] VITALS: BP 131/71
[2021-02-19 19:20] VITALS: BP 129/72
--- NOTE | 2021-02-19 20:21 | NUR ---
PT RESTING IN BED WATCHING TV, NO SIGNS OF DISTRESS NOTED, RESP EVEN AND UNLABORED. PT ALERT AND ORIENTED X2, DISCUSSED POC, NOTED PT HAD A BM,KURT CARE PROVIDED. POST DRAINING TO GRAVITY, AIR MATTRESS, 02 2L NC, REDNESS TO GROIN FOLDS AND BUTTOCK NO OPEN AREA, BARRIER CREAM APPLIED. ASSESSMENT COMPLETED,CALL LIGHT IN REACH,CONTINUE TO MONITOR.
--- NOTE | 2021-02-19 21:54 | NUR ---
PT ATTEMPTED TO GET OUT OF BED, PT REPOSITIONED IN BED. BED ALARM FOR SAFETY, CALL LIGHT IN REACH,CONTINUE TO MONITOR.
[2021-02-20] VITALS (7 sets, daily range): BP systolic 112–127; BP diastolic 60–74
--- NOTE | 2021-02-20 | NUR ---
PT RESTING IN BED, NO SIGNS OF DISTRESS NOTED, RESP EVEN AND UNLABORED. PT ALERT AND ORIENTED X3, BED ALARM FOR SAFETY, CALL LIGHT IN REACH,CONTINUE TO MONITOR.
--- NOTE | 2021-02-20 04:00 | NUR ---
PT RESTING IN BED WITH EYES CLOSED, NO SIGNS OF DISTRESS NOTED,RESP EVEN AND UNLABORED. CALL LIGHT IN REACH,CONTINUE TO MONITOR.
--- NOTE | 2021-02-20 07:49 | NUR ---
PT SLEEPING IN BED. AWAKENED TO COMPLETE ASSESSMENT PT IN AIR MATTRESS. . GARBLED SPEECH NOTED; BUT PT ABLE TO STATE HIS NAME. PT ABLE TO FOLLOW COMMANDS; ABLE TO LACTATION COORDINATOR WITH RT HAND; WEAKER COMPARED TO LT. O2 VIA NC @2L IN PLACE; CLEAR/DIMINISHED BREATH SOUNDS UPON AUSCULTATION. ACTIVE BOWEL SOUNDS X4 QUADRANTS. NO IV PRESENT; MD AWARE. NO FACIAL EXPRESSIONS OF PAIN. PT ABLE TO TOLERATE PO MEDICATIONS WELL WITH SIPS OF THICKENED WATER. CALL LIGHT WITHIN REACH. BED ALARM IN PLACE FOR SAFETY. DISCUSSED POC; REINFORCEMENT NEEDED. CONTACT PRECAUTIONS IN PLACE FOR MRSA.
--- NOTE | 2021-02-20 10:24 | NUR ---
DR ALONSO AND Toni BARRETO MOTOR BOSS AT BEDSIDE DISCUSING POC
--- NOTE | 2021-02-20 11:31 | NUR ---
PT SLEEPING UPON ENTERING ROOM. O2 REMAINS UNCHANGED. PT AWAKENED TO EAT LUNCH. INSULIN ADMINISTERED AT THIS TIME PER SLIDING SCALE. A AVELINO DIRECTOR AUTOMOTIVE AT BEDSIDE TO ASSIST PT WITH MEAL. CALL LIGHT WITHIN REACH, BED ALARM IN PLACE FOR SAFETY.
--- NOTE | 2021-02-20 17:01 | NUR ---
PT SLEEPING IN BED. O2 REMAINS UNCHANGED AT 2L. AWAKENED TO TAKE MEDICATIONS. PT ABLE TO TAKE PO MEDICATIONS WITHOUT DIFFICULTY, PT COVERED WITH INSULIN PER SLIDING SCALE. PT REPORTS WANTING DINNER. NO OTHER NEEDS AT THIS TIME. UPDATED KURT AREA PICTURE PLACED IN CHART; UPDATED PT IDENTIFYING PICTURE PLACED IN ROOM FOR IDENTIFICATION IF NEEDED; LABEL PLACED. CALL LIGHT WITHIN REACH. BED ALARM IN PLACE FOR SAFETY.
--- NOTE | 2021-02-20 19:30 | NUR ---
PATIENTON AIR MATTRESS WITH HOB ELEVATED-EYES ARE CLOSED WITH O2 VIA NASAL CANNULA IN PLACE-O2 SAT IS 96% AT THIS TIME. RESPS ARE EVEN AND UNLABORED AT THIS TIME. POST CATH PATENT AND DRAINING KRIS URINE. BED ALARM IN PLACE FOR PATIENT SAFETY. CALL LIGHT IN REACH. WILL CONT TO MONITOR.
--- NOTE | 2021-02-20 20:46 | NUR ---
PATIENT RESTING IN BED-AWAKE AND ALERT-STILL WITH SLURRED SPEECH. ABLE TO TELL ME HIS MONTH BUT NOT THE DATE. ACCU-CHECK WAS 157-MEDICATED WITH HUMALOG 1UNIT SQ PER SS HUMALOG COVERAGE PROTOCOL-HS SNACK PROVIDED. BED ALARM IN PLACE FOR PATIENT SAFETY. SAFETY PRECAUTIONS REINFORCED. CALL LIGHT IN REACH. WILL CONT TO MONITOR.
--- NOTE | 2021-02-21 | NUR ---
PATIENT RESTING IN BED AT THIS TIME WITH HOB ELEVATED AND O2 VIA NASAL CANNULA IN PLACE. O2 SAT IS 95% AT TH IS TIME. POST CATH PATENT AND DRAINING KRIS URINE. PATIENT IS QUIET AT THIS TIME BUT DOES HAVE EPISODES OF CALLING OUT AT TIMES. BED ALARM IN PLACE FOR PATIENT SAFETY. CALL LIGHT IN REACH. WILL CONT TO MONITOR.
--- NOTE | 2021-02-21 02:14 | NUR ---
PATIENT IS MOANING OUT LOUD. INCONT OF MODERATE AMT OF PASTY BROWN STOOL. PERICARE AND POST CATH CARE WAS DONE. BARRIER CREAM APPLIED TO ELIF BUTTOCKS. NYSTATIN POWDER APPLIED TO GROIN FOLDS AND ELIF TESTICLE FOR REDNESS. PATIENT REPOSITIONED ON RIGHT SIDE. PROVIDED WITH THICKENED PO FLUIDS-TOLERATED WELL. TELE MONITOR IN PLACE-LAST READING WAS AFIB 61. POST PATENT AND DRAINING KRIS URINE. BED ALARM IN PLACE FOR PATIENT SAFETY. SAFETY PRECAUTIONS REINFORCED. O2 VIA NASAL CANNULA IN PLACE. CALL LIGHT IN REACH. WILL CONT TO MONITOR.
[2021-02-21 04:00] VITALS: BP 109/60
--- NOTE | 2021-02-21 04:30 | NUR ---
PATIENT IS RESTING QUIETLY AT THIS TIME WITH EYES CLOSED. O2 VIA NASAL CANNULA IN PLACE. RESPS ARE EVEN AND UNLABORED. TELE MONITOR IN PLACE-LAST READING WAS AFIB-58. POST PATENT AND DRAINING KRIS URINE. BED ALARM IN PLACE FOR PATIENT SAFETY. CALL LIGHT IN REACH. WILL CONT TO MONITOR.
[2021-02-21 07:24] VITALS: BP 135/69
--- NOTE | 2021-02-21 07:24 | NUR ---
PT AWAKE UPON ENTERING ROOM. A&O TO SELF AND PLACE THIS MORNING. O2 VIA NC @2L IN PLACE HUMIDIFIED; O2 SUSTAINING 94-96%. BREATH SOUNDS CLEAR/DIMINISHED UPON AUSCULTATION. ACTIVE BOWEL SOUNDS X4 QUADRANTS. POST CATHTER DRAINING VIA GRAVITY. METAL CANS SUPERVISOR IN PLACE. NO IV PRESENT; MD AWARE. PT ABLE TO CHILD CARE CENTER ADMINISTRATOR THIS WRITERS HAND. ABLE TO FOLLOW SIMPLE COMMANDS. TOLERATES PO MEDICATIONS WELL WITH THICKENED LIQUIDS. COVERED WITH INSULIN PER SLIDING SCALE. PT DENIES BEING IN PAIN AT THIS TIME. PT IN AIR MATRESS. BED ALARM IN PLACE FOR SAFETY. ASSESSMENT COMPLETED. DISCUSSED POC. CALL LIGHT WITHIN REACH. PT REPOSITIONED TO LT SIDE.
--- NOTE | 2021-02-21 08:59 | NUR ---
DR ALONSO AND Toni BARRETO DIRECTOR INSTRUMENTATION AT BEDSIDE DISCUSSING POC
--- NOTE | 2021-02-21 09:39 | NUR ---
PT REQUESTING TO GET OOB; PT INFORMED OF THE NEED OF A ISAAC LIFT TO SAFELY TRANSPORT HIM TO THE CHAIR, ESPECIALLY AFTER FALLING AND HOW IT IS NOT AVAILABLE AT THIS TIME . PT REPOSITIONED IN BED. NO OTHER NEEDS AT THIS TIME. CALL LIGHT WITHIN REACH; BED ALARM IN PLACE FOR SAFETY.
[2021-02-21 11:00] VITALS: BP 113/69
--- NOTE | 2021-02-21 13:54 | NUR ---
PT SLEEPING UPON ENTERING ROOM, AWAKENED TO TAKE MEDICATIONS. NO NEEDS AT THIS TIME. DENIES ANY PAIN . CALL LIGHT WITHIN REACH.
[2021-02-21 15:35] VITALS: BP 112/73
--- NOTE | 2021-02-21 17:47 | NUR ---
PT REPOSITIONED IN BED. O2 REMAINS UNCHANGED. PO MEDICATIONS GIVEN AT THIS TIME. CALL LIGHT WITHIN REACH. BED ALARM IN PLACE FOR SAFETY.
[2021-02-21 19:00] VITALS: BP 121/69
--- NOTE | 2021-02-21 20:30 | NUR ---
PATIENT RESTING IN BED ON AIR MATTRESS WITH O2 VIA NASAL CANNULA IN PLACE AT 2LPM. HOB IS ELEVATED. ALERT AND ORIENTED TO PERSON AND PLACE. KNOWS HIS BIRTHDATE AND WHERE HE IS. SPEECH REMAINS GARBLED BUT UNDERSTANDABLE AT TIMES. TELE MONITOR IN PLACE-LAST READING WAS AFIB-83. POST PATENT AND DRAINING KRIS URINE. ACCU-CHECK TO NIGHT IS 153-NO COVERAGE GIVEN. POOR APPETITE AT DINNER. TAKING THICKENED APPLE JUICE WITHOUT ANY DIFFICULTY. NO COUGHING NOTED. BED ALARM IN PLACE FOR PATIENT SAFETY. CALL LIGHTIN REACH. WILL CONT TO MONITOR.
--- NOTE | 2021-02-21 22:56 | NUR ---
PATIENT INCONT OF MODERATE AMT OF SOFT BROWN STOOL. PERICARE AND POST CATH CARE WAS DONE USING SOAP AND WATER. BARRIER CREAM APPLIED TO BUTTOCKS AND NYSTATIN POWDER WAS APPLIED TO REDDENED GROIN FOLDS. TURNED AND REPOSITIONED ON LEFT SIDE. PATIENT IS SHOWING SOME MOVEMENT WITH HIS RIGHT UE. POST IS PATENT AND DRAINING KRIS URINE. TELE MONITOR IN PLACE. O2 VIA NASAL CANNULA IN PLACE. BED ALARM IN PLACE FOR PATIENT SAFETY. CALL LIGHT IN REACH. WILL CONT TO MONITOR.
[2021-02-22] VITALS: BP 105/56
--- NOTE | 2021-02-22 00:16 | NUR ---
PATIENT INCONT OF SOFT BROWN STOOL AGAIN. PATIENT WAS PROVIDED WITH PERINEAL CARE WITH SOAP AND WATER. TURNED AND REPOSITIONED ON RIGHT SIDE. O2 VIA NASAL CANNULA IN PLACE. POST PATENT AND DRAINING KRIS URINE. BED ALARM IN PLACE FOR PATIENT SAFETY. CALL LIGHT IN REACH. WILL CONT TO MONITOR.
[2021-02-22 04:02] VITALS: BP 116/66
--- NOTE | 2021-02-22 04:36 | NUR ---
PATIENT RESTING IN BED AT THIS TIME WITH O2 VIA NASLA CANNULA IN PLACE. POST PATENT AND DRAINING KRIS URINE. TELE MONITOR IN PLACE A-FIB. TURNED AND REPOSITIONED. BED ALARM IN PLACE. CALL LIGHT IN REACH. WILL CONT TO MONITOR.
[2021-02-22 05:21] LABS: HEMATOCRIT 35.4 % (39.0-50.0); HEMOGLOBIN 11.3 g/dl (14.0-18.0); MEAN CELL VOLUME 96.2 fL CALC (80.0-100.0); MEAN CORPUSCULAR HGB 30.7 pG CALC (26.0-32.0); MEAN CORPUSCULAR HGB CONC 31.9 g/dL CAL (32.0-36.0); RED BLOOD COUNT 3.68 mill/uL (4.70-6.10); RED CELL DISTRI WIDTH 15.2 % (11.5-15.5)
[2021-02-22 05:32] LABS: ANION GAP 4 (6-22 (CALC)); BUN 11 mg/dL (8-23); BUN/CREATININE RATIO 12 (12-20 (CALC)); CARBON DIOXIDE 34 mmol/l (22-30); CHLORIDE 102 mmol/l (95-108); GFR > 60 ML/MIN (>=60 (CALC)); GFR FOR AFR.AMER. > 60 ML/MIN (>=60 (CALC)); POTASSIUM 3.1 mmol/l (3.5-5.1); SODIUM 137 mmol/l (137-146)
[2021-02-22 09:05] VITALS: BP 137/81
--- NOTE | 2021-02-22 09:05 | NUR ---
PT SITTING BED ATTEMPTING TO EAT BREAKFAST. PT A&O X2 TODAY. O2 VIA NC @2L IN PLACE. CLEAR/DIMINISHED BREATH SOUNDS UPON AUSCULTATION. ACTIVE BOWEL SOUNDS X4 QUADRANTS, POST CATHETER DRAINING VIA GRAVITY. PT ABLE TO LIFT RT ARM TO MIDLEVEL. ABLE TO SLIGHTLY ELEAVTE RT LEG. ASSESSMENT COMPLETED. DISCUSSED POC AND DC PLANNING; REINFORCEMENT NEEDED. CALL LIGHT WITHIN REACH. BED ALARM IN PLACE FOR SAFETY
--- NOTE | 2021-02-22 09:36 | NUR ---
DR ALONSO AND Toni BARRETO SCALLOP BINDER AT BEDSIDE DISCUSSING POC
[2021-02-22 11:18] VITALS: BP 135/83
--- NOTE | 2021-02-22 11:30 | NUR ---
PT SITTING IN BED. DENIES ANY PAIN. COVERED WITH INSULIN PER SLIDING SCALE. NO OTHER NEEDS AT THIS TIME. CALL LIGHT WITHIN REACH. BED ALARM IN PLACE FOR SAFETY.
[2021-02-22 15:24] VITALS: BP 133/63
--- NOTE | 2021-02-22 16:31 | NUR ---
PT SITTING [place]I [place] AT THIS TIME. STATES NO PAIN AT THIS TIME. POST IN PLACE DRAINING VIA GRAVITY. FALL PRECAUTIONS IN PLACE. ENCOURAGED PT TO USE CALL LIGHT. CALL LIGHT WITHIN REACH.
[2021-02-22 19:00] VITALS: BP 124/75
--- NOTE | 2021-02-22 20:30 | NUR ---
PATIENT SITTING UP IN BED WITH O2 VIA NASAL CANNULA IN PLACE-02 SAT IS 94%. SPEECH IS STILL SLURRED BUT ABLE TO TELL ME HIS NAME AND BIRTHDATE. TELE MONITOR IN PLACE-LAST READING WAS AFIB 84. POST IS PATENT AND DRAINING KRIS URINE. PATIENT REMAINS WITH RIGHT SIDED WEAKNESS BUT IS HAVING SOME MOVEMENT OF HIS RIGHT ARM AND HAND. ACCU-CHECK WAS 138 TONIGHT-NO COVERAGE. PROVIDED WITH CEREAL BAR AND THICKENED APPLE JUICE. BED ALARM IN PLACE FOR PATIENT SAFETY. CALL LIGHT IN REACH. WILL CONT TO MONITOR.
--- NOTE | 2021-02-22 23:41 | NUR ---
PATIENT IS CALLING OUT. PATIENT WAS CHECKED AND INCONT OF SMALL AMT OF SOFT BROWN STOOL. PERICARE AND POST CATH CARE WAS DONE WITH SOAP AND WATER. NYSTATIN POWDER APPLIED TO GROIN FOLDS AND TESTICLES. BARRIER CREAM APPLIED WOT BUTTOCKS. LINEN PADS WERE CHANGED. TURNED AND POSITIONED ON RIGHT SIDE. MEDICATED FOR GENERALIZED DISCOMFORT WITH TYLENOL 650MG PO-TAKEN WITH THICKENED APPLE JUICE WITHOUT ANY DIFFICULTY. TELE MONITOR IN PLACE. POST PATENT AND DRAINING KIRS URINE. PATIENT CONT TO HAVE INCREASED MOVEMENT TO RIGHT ARM. BED ALARM IN PLACE FOR PATIENT SAFETY. CALL LIGHT IN REACH.WILL CONT TO MONITOR,
[2021-02-23 00:12] VITALS: BP 105/54
[2021-02-23 04:00] VITALS: BP 119/64
--- NOTE | 2021-02-23 05:34 | NUR ---
PATIENT RESTING IN BED AT THIS TIME POSITIONED ON LEFT SIDE WITH O2 VIA NASAL CANNULA IN PLACE. EYES ARE CLOSED AND RESPS ARE EVEN AND UNLABORED. TELE MONITOR IN PLACE-LAST READING WAS AFIB 63. POST PATENT AND DRAINING KRIS URINE. BED ALARM IN PLACE FOR PATIENT SAFETY. CALL LIGHT IN REACH. WILL CONT TO MONITOR.
[2021-02-23 07:30] VITALS: BP 139/73
--- NOTE | 2021-02-23 07:30 | NUR ---
PT SLEEPING IN BED AWAKENED TO COMPLETE ASSESSMENT. A&O X2. NO DISTRESS NOTED. O2 VIA NC @2L IN PLACE. CLEAR/DIMINISHED BREATH SOUNDS UPON AUSCULTATION. ACTIVE BOWEL SOUNDS X4 QUADRANTS. POST CATHETER DRAINING VIA GRAVITY. ASSESSMENT COMPLETED. DISCUSSED POC. CALL LIGHT WITHIN REACH.
--- NOTE | 2021-02-23 10:48 | NUR ---
S- I want to go home. Pt able to give name. 0- Pt seen for ther ex. He refused rolling/sitting on edge of bed. A/AAROM x 4 extremeties, PROM also done on R. Passive heel cord stretch done bilaterally. Pt with some increase participation with ex on R today. Time spent with pt 30 min. A- [facility] E[facility]. P- will follow.
[2021-02-23 11:21] VITALS: BP 127/80
--- NOTE | 2021-02-23 13:08 | NUR ---
PT MEDICATED WITH PO TYLENOL HE WAS RESTLESS. PT NODDED "YES" AFTER ASKED IF HE WAS HAVING PAIN. TOLERATED PO WELL. PT REQUESTING TO "GO HOME TODAY NOT TOMORROW" PT REINFORMED THAT HE WAS NOT GOING TO BE ABLE TO BE SAFELY D/C UNTIL NECESSARY EQUIPMENT WAS DELIVERED. CALL LIGHT WITHIN REACH.
[2021-02-23 15:19] VITALS: BP 159/76
--- NOTE | 2021-02-23 16:00 | NUR ---
PT SLEEPING IN BED. NO DISTRESS NOTED. CALL LIGHT WITHIN REACH.
[2021-02-23 18:30] VITALS: BP 123/68
--- NOTE | 2021-02-23 19:49 | NUR ---
PATIENT RESTING IN BED AT THIS TIME POSITIONED ON LEFT SIDE. AWAKE ALERT AND ORIENTEDX3. O2 VIA NASAL CANNULA AT 2LPM IN PLACE-O2 SAT IS 93%. OCC NON-PRODUCTIVE COUGH NOTED. TELE MONITOR IN PLACE. POST CATH PATENT AND DRAINING KRIS URINE, SPEECH STILL GARBLED BUT UNDERSTANDABLE. BED ALARM IN PLACE FOR PATIENT SAFETY. SAFETY PRECATIONS REINFORCED. CALL LIGHT IN REACH. WILL CONT TO MONITOR.
--- NOTE | 2021-02-23 21:06 | NUR ---
PATIENT IS CALLING OUT LOUD-PATIENT CHECKED AND WAS INCONT OF SMALL AMT OF SOFT BROWN STOOL. KURT-CARE WAS PROVIDED WITH SOAP AND WATER. 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 BARRIER CREAM APPLIED. POST CATH CARE WAS GIVEN WITH SOAP AND WATER. NYSTATIN POWDER WAS APPLIED TO RED AREAS TO GROIN FOLDS AND TESTICLES. PATIENT WAS TURNED AND REPOSITIONED ON SIDE. PATIENT IS ON AIR MATTRESS. O2 VIA NASAL CANNULA IN PLACE. TELE MONITOR IN PLACE-LAST READING WAS A-FIB 72. ACCU-CHECK TONIGHT WAS 144-NO COVERAGE PER PROTOCOL. PROVIDED WITH CERAL BAR AND THICKENED APPLE JUICE. BED ALARM IN PLACE FOR PATIENT SAFETY. CALL LIGHT IN REACH. WILL CONT TO MONITOR.
--- NOTE | 2021-02-23 23:28 | NUR ---
PATIENT RESTING IN BED AT THIS TIME WITH HOB ELEVATED AND O2 VIA NASAL CANNULA IN PLACE. EYES ARE CLOSED AND RESPS ARE EVEN AND UNLABORED. TELE MONITOR IN PLACE. POST PATENT AND DRAINING KRIS URINE. BED ALARM IN PLACE FOR PATIENT SAFETY. CALL LIGHT IN REACH. WILL CONT TO MONITOR.
[2021-02-24] VITALS: BP 135/70
[2021-02-24 03:32] VITALS: BP 115/66
[2021-02-24 05:09] LABS: HEMATOCRIT 35.1 % (39.0-50.0); HEMOGLOBIN 11.1 g/dl (14.0-18.0); MEAN CELL VOLUME 96.2 fL CALC (80.0-100.0); MEAN CORPUSCULAR HGB 30.4 pG CALC (26.0-32.0); MEAN CORPUSCULAR HGB CONC 31.6 g/dL CAL (32.0-36.0); RED BLOOD COUNT 3.65 mill/uL (4.70-6.10); RED CELL DISTRI WIDTH 15.7 % (11.5-15.5)
[2021-02-24 05:22] LABS: ANION GAP 4 (6-22 (CALC)); BUN 14 mg/dL (8-23); BUN/CREATININE RATIO 15 (12-20 (CALC)); CARBON DIOXIDE 34 mmol/l (22-30); CHLORIDE 102 mmol/l (95-108); GFR > 60 ML/MIN (>=60 (CALC)); GFR FOR AFR.AMER. > 60 ML/MIN (>=60 (CALC)); MAGNESIUM 1.5 mg/dL (1.6-2.3); POTASSIUM 3.3 mmol/l (3.5-5.1); SODIUM 136 mmol/l (137-146)
--- NOTE | 2021-02-24 06:12 | NUR ---
PATIENT RESTING IN BED WITH EYES CLOSED AND O2 VIA NASAL CANNULA IN PLACE. RFESPS ARE EVEN AND UNLABORED. POST PATENT AND DRAINING YELLOW URINE. TELE MONITOR IN PLACE-LAST READING WAS AFIB-64. BED ALARM IN PLACE FOR PATIENT SAFETY. CALL LIGHT IN REACH. WILL CONT TO MONITOR.
[2021-02-24 07:21] VITALS: BP 133/64
--- NOTE | 2021-02-24 07:21 | NUR ---
PT SLEEPING IN BED; AWAKENED TO COMPLETE ASSESSMENT. O2 REMAINS UNCHANGED, CLEAR DIMINISHED BREATH SOUNDS UPON AUSCULTATION. PT REQUESTING TO GO HOME; UPDATED PT ON POC. ACTIVE BOWEL SOUNDS X4 QUADRANTS. POST CATHETER DRAINING VIA GRAVITY. PT DENIES ANY PAIN. ASSESSMENT COMPLETED. DISCUSSED POC. CALL LIGHT WITHIN REACH.
--- NOTE | 2021-02-24 10:05 | NUR ---
S- pt stated he was going home today. 0- pt resting in bed, talkative today. Pt oriented to name . A/AAROM to R extremities AROM/gentle manual resist to L extremities. Bilateral heel cord stretches done. Pt rolled to R with min/mod assist using bed rail and towards L with mod assist. Pt moved supine to sitting on edge of bed with mod/max assist and tolerated sitting x 5 min with CGA/min assist to maintain sitting balance. Unable to move pt up in bed sitting, pt unable to assist. Sitting to supine with max to total assist. Pt unable to move self up in bed. He had soft brown stool and was cleaned with PEST CONTROL TECHNICIAN. Pt positioned properly with call cespedes and bed side tray in reach. Pt BP was 101/61 with mild lightheadedness in sitting which resolved quickly. HR78, 02sats 92% Time spent with pt 50 min. A- Pt with increase participation today. [facility] ECF P- will follow.
[2021-02-24 10:45] VITALS: BP 115/64
--- NOTE | 2021-02-24 12:50 | NUR ---
PT SLEEPING IN BED NO DISTRESS NOTED.
[2021-02-24 15:32] VITALS: BP 113/79
--- NOTE | 2021-02-24 18:14 | NUR ---
PT SLEEPING IN BED. NO DISTRESS NOTED. CALL LIGHT WITHIN REACH.
--- NOTE | 2021-02-24 18:55 | NUR ---
REPORT RECEIVED FROM Makenzie MAYA RN
[2021-02-24 19:00] VITALS: BP 124/74
[2021-02-25] VITALS: BP 129/75
--- NOTE | 2021-02-25 00:30 | NUR ---
PATIENT SLEEPING SOUNDLY, AWOKEN BY WRITTER. DENIES ANY CURRENT NEEDS. CALL LIGHT AND BEDSIDE TABLE WITHIN REACH.
[2021-02-25 04:00] VITALS: BP 124/80
--- NOTE | 2021-02-25 05:40 | NUR ---
PATIENT SLEEPING SOUNDLY, TURNED AT THIS TIME. NO COMPLAINTS VOICE. CALL LIGHT AND BEDSIDE TABLE WTIHIN REACH.
[2021-02-25 07:29] VITALS: BP 127/75
--- NOTE | 2021-02-25 07:32 | NUR ---
PT SITTING [place] WATCHING TV AT THIS TIME. ASSESSMENT AND VITALS ALLOWED AT THIS TIME. A&OX3, PT SPEECH IS LESS GARBLED BUT NOT CLEAR. LUNG SOUNDS ARE DIMIINISHED UPPER/LOWER LOBES. BREATHING IS EVEN AND UNLABORED. HEART SOUNDS ARE IRREGULAR. TELE MONITORR IN PLACE, CONTINOUS MONITORING BY ED. O2 IN PLACE 1L PER NC AT HIGHFLOW. BOWEL SOUNDS ACTIVE X4. POST CATHETER IN PLACE DRAINING VIA GRAVITY SHOWING KRIS YELLOW URINE. PT TUGGING AT CATHETER EXPLAINED THAT PT WILL HURT THEMSLEVES IF KEEP TUGGING. PT REPLIED "BULLSHIT" BED ALARM ON. FALL PRECAUTIONS IN PLACE. CALL LIGHT WITHIN REACH.
--- NOTE | 2021-02-25 10:48 | NUR ---
Atempted treatment at 9am but he was upset secondary to no going home. He refused treatment at this time. Will see in pm.
[2021-02-25 11:07] VITALS: BP 113/65
--- NOTE | 2021-02-25 11:15 | NUR ---
EDUCATED PT FAMILY IN [place] TO PT CARE. FAMILY INDICATED UNDERSTANDING. PT FAMILY ANXIOUS TOWARDS USAGE OF ISAAC EXPLAINED [place] WILL EDUCATE BEFORE USE OF MACHINE.
--- NOTE | 2021-02-25 11:23 | NUR ---
REMOVED POST FROM PT. PT TOLERATED WELL. STATES NO PAIN. CALL LIGHT WITHIN REACH
--- NOTE | 2021-02-25 12:44 | NUR ---
PT AGITATED IN ROOM STATES THEY WANT TO GO HOME. DOES NOT WANT TO EAT FOOD. BRANDY COLE OFFERED FOOD TO PT. PT DENIES. PT HAS NOT VOIDED SINCE THE REMOVAL OF THE POST @1123 WILL CONTINUE TO MONITOR. TELE MONITOR IS IN PLACE, CONTINOUS MONITORING BY ED. BED ALARM ACTIVATED/ FALL PRECAUTIONS IS IN PLACE. CALL LIGHT IS WITHIN REACH.
--- NOTE | 2021-02-25 13:19 | NUR ---
PT WITH PATIENT AT THIS TIME.
--- NOTE | 2021-02-25 14:09 | NUR ---
S- Wants to go home. Pt was able to carry on a conversation during treatment. 0- Pt resting in bed watching western on TV, on RA. A/AAROM performed to R extremities 2 x 10 reps, he was able to do some manual resist ex on RLE pressing leg into full extension. AROM/manual resist to L extremities. Pt refused sitting over edge of bed today stating he was tried. BP 126/83 to 125/73. On arrival on room air 02 sat 88, after replacing 02 sats at 91% after treatment 95%, HR 75-83. Time spent with pt 30 min. A- [facility] unchanged ECF P- Will follow.
[2021-02-25 15:25] VITALS: BP 110/66
--- NOTE | 2021-02-25 15:40 | NUR ---
PT SITTING [place]I [place] WATCHING TV AT THIS TIME. STATES NO PAIN AT THIS TIME. HAS NOT VOIDED SINCE REMOVAL OF POST. AIR DEODORIZER SERVICER PREVIOUSLY NOTIFIED. TELE MONITOR IN PLACE. CONTINOUS MONITORING BY ED. BED ALARM ACTIVATED. FALL PRECAUTIONS IN PLACE. CALL LIGHT WITHIN REACH.
--- NOTE | 2021-02-25 17:15 | NUR ---
PT HAS NOT VOIDIED OF YET. BLADDER SCAN PERFORMED SHOWING 112 OF URINE. ADAM ARAIZA NOTIFIED AT THIS TIME. ORDER FOR BLADDER SCAN Q6 IF URINE MORE THAN 300 STRAIGHT CATH PT AND NOTIFY MD. CALL LIGHT WITHIN REACH. PT STATES NO PAIN AT THIS TIME. BED ALARM ACITVATED. FALL PRECAUTIONS IN PLACE.
[2021-02-25 19:06] VITALS: BP 147/65
[2021-02-26] VITALS: BP 155/80
[2021-02-26 03:48] VITALS: BP 142/83
--- NOTE | 2021-02-26 07:30 | NUR ---
PT ASLEEP UPON ENTERING ROOM BREATHING IS EVEN AND UNLABORED. POST CATHETER REMOVED YESTERDAY. PT WAS ABLE TO VOID LAST NIGHT. BED ALARM ACTIVATED. TELE MONITOR IN PLACE, CONTINOUS MONITORING BY ED UPON AWAKENING PT WAS ABLE TO TAKE MEDICATION WELL. FALL PRECAUTIONS IN PLACE. DENIED ASSESSMENT AT THIS TIME. BUT VITALS ALLOWED.
[2021-02-26 07:35] VITALS: BP 125/75
--- NOTE | 2021-02-26 09:50 | NUR ---
ASSESSMENT ALLOWED AT THIS TIME. LUNG SOUNDS CLEAR RUL AND DARIEL ANTERIORLY. RLL&LLL CLEAR/DIMINISHED ANTERIORLY AND POSTERIORLY. BREATHING IS EVEN AND UNLABORED. NON PRODUCITVE COUGH NOTED. HEART SOUNS IRREGULAR. TELE MONITOR IN PLACE, CONTINOUS MONITORING BY ED. TELE SHOWING AFIB 66. BOWEL SOUND ACTIVE X4. EDEMA ON LOWER LEGS BILATERALLY +1. SLIGHT REDNESS ON THE RIGHT FOOT. RADIAL PULSES ARE WEAK. PEDAL PULSES ARE WEAK. BED ALARM ACITVATED. FALL/ SAFTEY PRECAUTIONS ARE IN PLACE. PT STATES NO PAIN AT THIS TIME. CALL LIGHT WITHIN REACH.
[2021-02-26] MEDS ORDERED: TAMSULOSIN HCL0.4 MG PO (10:02)
[2021-02-26] MEDS ORDERED: LOPRESSOR25 MG PO (10:03)
[2021-02-26] MEDS ORDERED: IPRATROPIU0.5 MG/3 M NEB (10:03)
[2021-02-26] MEDS ORDERED: QUETIAPINE FUMA25 MG PO (10:04)
[2021-02-26] MEDS ORDERED: PANTOPRAZOLE SO40 M1 PO (10:04)
--- NOTE | 2021-02-26 10:49 | NUR ---
S- Pt c/o being tried, wanting to sleep. 0- Pt resting in bed with eyes closed. He agreed to ex but refused sitting over edge of bed. Active/manual resist ROM ex to L extremities, P/AAROM to R extremities. Gentle heelcord and hamstring stretch done bilaterally 3 x 15 sec each. Pt left supine with call cespedes in reach and positioned appropriately. Time spent with pt 32 min. A- Pt with poor participation today. [facility] ECF. P- Will follow.
[2021-02-26 11:38] VITALS: BP 96/56
--- NOTE | 2021-02-26 13:00 | NUR ---
PT WATCHING TV IN [place] POSITION UPON ENTERING ROOM. STATES NO PAIN AT THIS TIME. BED ALARM ACTIVATED. FALL/SAFETY PRECAUTIONS IN PLACE. TELE MONITOR IN PLACE. STATES NO OTHER NEEDS AT THIS TIME. CALL LIGHT WITHIN REACH.
--- NOTE | 2021-02-26 13:08 | NUR ---
HELD VERAMPIL DUE TO PT BEING SB @50.
--- NOTE | 2021-02-26 16:09 | NUR ---
CALLED [facility] IN REGARDS TO TRANSPORTATION FOR LATER THIS EVENING.
--- NOTE | 2021-02-26 16:28 | NUR ---
SPOKE ON THE PHONE TO FAMILY SON THAI ABOUT DOCTOR INSTRUCTIONS PAPERWORK IN REGARDS TO HIS POC.
[2021-02-26 16:34] VITALS: BP 120/73
--- NOTE | 2021-02-26 16:56 | NUR ---
Discharge instructions given. Patient verbalizes understanding of same. Discharged in stable condition via [facility] with [facility] staff. All belongings sent with pt. INSTRUCTIONS ARE ALSO GIVEN VIA PHONE TO SON THAI. THAI INDICATED UNDERSTANDING OF FATHERS DISHARGE PAPERWORK. PT HAD NO IV SITE. TELE MONITOR TAKEN OFF PT.
[2021-02-27] MEDS ORDERED: NEBULIZE4 IN (15:05)
== END 2021-02-26 16:55 | DRG 870 ==
LOC: ED 15:40 → ED-I 17:00 → ED 17:19 → ICU 17:20 → MS2 02-06 18:09
PROVIDERS: Internal Medicine; Nurse Practitioner; Nurse Practitioner Family; ADMIT Hospitalist; ATTEND Hospitalist
PROC: 5A1955Z Respiratory Ventilation, Greater than 96 Consecutive Hours (ICD-10-PCS; principal; 2021-01-23)
PROC: 0BH17EZ Insertion of Endotracheal Airway into Trachea, Via Natural or Artificial Opening (ICD-10-PCS; 2021-01-23)
PROC: 0T9B70Z Drainage of Bladder with Drainage Device, Via Natural or Artificial Opening (ICD-10-PCS; 2021-01-23)
PROC: 5A09357 Assistance with Respiratory Ventilation, Less than 24 Consecutive Hours, Continuous Positive Airway Pressure (ICD-10-PCS; 2021-01-23)
PROC: 0T9B70Z Drainage of Bladder with Drainage Device, Via Natural or Artificial Opening (ICD-10-PCS; 2021-02-19)
DX: A41.9 Sepsis, unspecified organism (principal); J96.02 Acute respiratory failure with hypercapnia; J96.01 Acute respiratory failure with hypoxia; J18.9 Pneumonia, unspecified organism; J44.1 Chronic obstructive pulmonary disease with (acute) exacerbation; I69.351 Hemiplegia and hemiparesis following cerebral infarction affecting right dominant side; J44.0 Chronic obstructive pulmonary disease with (acute) lower respiratory infection; E87.0 Hyperosmolality and hypernatremia; N17.9 Acute kidney failure, unspecified; R65.20 Severe sepsis without septic shock; I11.0 Hypertensive heart disease with heart failure; I50.9 Heart failure, unspecified; E86.0 Dehydration; I48.91 Unspecified atrial fibrillation; E11.9 Type 2 diabetes mellitus without complications; R41.82 Altered mental status, unspecified; I69.398 Other sequelae of cerebral infarction; R33.9 Retention of urine, unspecified; I16.0 Hypertensive urgency; R13.10 Dysphagia, unspecified; F17.210 Nicotine dependence, cigarettes, uncomplicated; Z79.84 Long term (current) use of oral hypoglycemic drugs; Z79.01 Long term (current) use of anticoagulants; Z87.01 Personal history of pneumonia (recurrent); Z20.822 Contact with and (suspected) exposure to COVID-19
CPT/HCPCS: J0692; J1650; J2060; J3370; S0164

== ENCOUNTER 2022-02-06 14:04 | Emergency (ER) | payer MEDICARE, MEDICAID ==
[~2022-02-06] VITALS: Ht 180.3 cm; Wt 111.4 kg
[2022-02-06] VITALS (15 sets, daily range): BP systolic 118–179; BP diastolic 68–122
[~2022-02-06 14:04] MED LIST changes: +IPRATROPIU0.5 MG/3 M NEB; +LOPRESSOR25 MG PO; +NEBULIZE4 IN; +PANTOPRAZOLE SO40 M1 PO; +QUETIAPINE FUMA25 MG PO; +TAMSULOSIN HCL0.4 MG PO
[2022-02-06 15:01] LABS: HEMATOCRIT 42.9 % (39.0-50.0); HEMOGLOBIN 14.4 g/dl (14.0-18.0); IMMATURE GRANULOCYTES 0.1 % (0.0-5.0); MEAN CELL VOLUME 91.1 fL CALC (80.0-100.0); MEAN CORPUSCULAR HGB 30.6 pG CALC (26.0-32.0); MEAN CORPUSCULAR HGB CONC 33.6 g/dL CAL (32.0-36.0); NEUT# 5.16 thou/uL (1.82-7.42); RED BLOOD COUNT 4.71 mill/uL (4.70-6.10); RED CELL DISTRI WIDTH 13.2 % (11.5-15.5)
[2022-02-06 15:15] LABS: ALBUMIN 3.7 g/dL (3.2-5.0); ALKALINE PHOSPHATASE 94 u/l (38-126); ANION GAP 12 (6-22 (CALC)); BILIRUBIN, TOTAL 0.5 mg/dL (0.0-1.4); BUN 19 mg/dL (8-23); BUN/CREATININE RATIO 17 (12-20 (CALC)); CARBON DIOXIDE 31 mmol/l (22-30); CHLORIDE 98 mmol/l (95-108); CREATININE 1.1 mg/dL (0.7-1.3); GFR FOR AFR.AMER. > 60 ML/MIN (>=60 (CALC)); GFR OTHER RACES > 60 ML/MIN (>=60 (CALC)); POTASSIUM 3.6 mmol/l (3.5-5.1); SGOT/AST 50 u/l (19-48); SODIUM 137 mmol/l (137-146); TOTAL PROTEIN 7.1 g/dL (6.3-8.2)
--- NOTE | 2022-02-08 12:32 | NUR ---
Preliminary blood culture results of 1/4 bottles growing gram positive cocci called to Sonja nurse at [facility]. Will follow-up with final blood culture results tomorrow.
--- NOTE | 2022-02-10 10:30 | NUR ---
Late entry: Blood culture results showing Staph hominis in 1 of 4 bottles called to nurse Duran at [facility].
== END 2022-02-06 19:03 | disposition short-term general hospital (02) ==
LOC: ED 14:04
PROVIDERS: Family Medicine
DX: U07.1 COVID-19 (principal); J44.1 Chronic obstructive pulmonary disease with (acute) exacerbation; I11.0 Hypertensive heart disease with heart failure; I50.9 Heart failure, unspecified; Z79.84 Long term (current) use of oral hypoglycemic drugs; E11.9 Type 2 diabetes mellitus without complications; I48.91 Unspecified atrial fibrillation; I69.951 Hemiplegia and hemiparesis following unspecified cerebrovascular disease affecting right dominant side; E66.01 Morbid (severe) obesity due to excess calories; F17.200 Nicotine dependence, unspecified, uncomplicated; K14.8 Other diseases of tongue
CPT/HCPCS: Q9967

== ENCOUNTER 2023-04-07 09:07 | Emergency (ER) | payer MEDICARE, MEDICAID ==
[2023-04-07] VITALS (21 sets, daily range): BP systolic 87–171; BP diastolic 44–102
[~2023-04-07] VITALS: Ht 180.3 cm; Wt 111.0 kg
[~2023-04-07 09:07] MED LIST changes: +AMLODIPINE BESYL5 MG PO; +BAYER ASPIRIN E81 MG PO; +CEFUROXIME500 MG PO; +GABAPENTIN600 MG PO; +METOPROLOL TART50 MG PO; +MILK OF MAGNES7.75 % PO; +MUCINEX600 MG PO; +TAMSULOSIN0.4 MG PO
[2023-04-07 09:46] LABS: BASO% 0.2 % (0-3); EOS% 0.2 % (0-8); HEMOGLOBIN 14.6 g/dl (14.0-18.0); IMMATURE GRANULOCYTES 0.3 % (0.0-5.0); LYMPH% 12.4 % (15-41); MEAN CELL VOLUME 93.1 fL CALC (80.0-100.0); MEAN CORPUSCULAR HGB 28.9 pG CALC (26.0-32.0); MEAN CORPUSCULAR HGB CONC 31.1 g/dL CAL (32.0-36.0); MONO% 6.3 % (2-13); NEUT# 8.6 thou/uL (1.82-7.42); NEUT% 80.6 % (42-76); RED BLOOD COUNT 5.05 mill/uL (4.70-6.10); RED CELL DISTRI WIDTH 14.4 % (11.5-15.5)
[2023-04-07 10:10] LABS: URINE BILIRUBIN - DIPSTICK Negative (NEGATIVE); URINE BLOOD DIPSTICK Negative (NEGATIVE); URINE GLUCOSE - DIPSTICK 500 mg/dL (NEGATIVE); URINE KETONE Negative (NEGATIVE); URINE NITRITE - DIPSTICK Negative (Negative); URINE PH 5.5 (4.5-8.0); URINE PROTEIN - DIPSTICK Negative (NEG-TRACE); URINE SPECIFIC GRAVITY 1.015; URINE UROBILINOGEN - DIPSTICK 0.2 E.U./dL (0.2)
[2023-04-07 10:11] LABS: ALKALINE PHOSPHATASE 84 u/l (38-126); ANION GAP 13 (6-22 (CALC)); BILIRUBIN, TOTAL 0.5 mg/dL (0.2-1.3); BUN 20 mg/dL (8-23); BUN/CREATININE RATIO 21 (12-20 (CALC)); CARBON DIOXIDE 27 mmol/l (22-30); CHLORIDE 102 mmol/l (95-108); GFR FOR AFR.AMER. > 60 ML/MIN (>=60 (CALC)); GFR OTHER RACES > 60 ML/MIN (>=60 (CALC)); LIPASE 115 u/l (23-300); POTASSIUM 4.4 mmol/l (3.5-5.1); SGOT/AST 34 u/l (19-48); SODIUM 138 mmol/l (137-146); TOTAL PROTEIN 6.9 g/dL (6.3-8.2)
[2023-04-07 10:15] LABS: URINE COLOR Yellow; URINE LEUK ESTERASE Small (NEGATIVE)
[2023-04-07 10:15] LABS: ALBUMIN 3.9 g/dL (3.2-5.0)
[2023-04-07 10:27] LABS: URINE BACTERIA MANY hpf; URINE RBC 0-2 RBC/hpf (0-5); URINE SQUAMOUS EPITHELIAL CELL RARE EPI/hpf (0-FEW)
[2023-04-07] MEDS ORDERED: CEFDINIR300 MG PO (13:38)
== END 2023-04-07 15:25 | disposition home or self-care (01) ==
LOC: ED 09:07
PROVIDERS: Family Medicine
DX: N39.0 Urinary tract infection, site not specified (principal); B96.1 Klebsiella pneumoniae [K. pneumoniae] as the cause of diseases classified elsewhere; I10 Essential (primary) hypertension; E11.9 Type 2 diabetes mellitus without complications; I48.91 Unspecified atrial fibrillation; J44.9 Chronic obstructive pulmonary disease, unspecified; I25.2 Old myocardial infarction; Z86.73 Personal history of transient ischemic attack (TIA), and cerebral infarction without residual deficits; Z87.891 Personal history of nicotine dependence; Z79.84 Long term (current) use of oral hypoglycemic drugs; Z20.822 Contact with and (suspected) exposure to COVID-19
CPT/HCPCS: Q9967